=== PATIENT | female | born 1980 | race Caucasian/White ===

== ENCOUNTER 2018-04-08 21:37 | Emergency (ER) | payer MEDICARE, MEDICAID, SELFPAY ==
[2018-04-08 21:38] VITALS: PULSE 75; RESP 18; TEMP 37; O2SAT 98; BMI 24.1
[2018-04-08 21:45] VITALS: BP 133/83
[2018-04-08 21:46] VITALS: O2SAT 99
--- NOTE | 2018-04-08 22:02 | EKG12_ITS ---
Test Reason : SEIZURE Blood Pressure : / mmHG Vent. Rate : 064 BPM Atrial Rate : 064 BPM P-R Int : 140 ms QRS Dur : 084 ms QT Int : 434 ms P-R-T Axes : 058 044 030 degrees QTc Int : 447 ms Normal sinus rhythm Normal ECG Confirmed by DYLAN MEYERS MD ([id number]), news videotape editor CARLOS ODEN ([id number]) on 04/12/2018 1:32:57 PM Referred By: SUNIL Confirmed By:DYLAN MEYERS MD
--- NOTE | 2018-04-08 22:04 | ED.VISSUMM ---
- ER Visit Summary Date of Service: 04/08/18 Chief Complaint: Shortness of breath History of Present Illness: The patient is a 38 F with a history of reflux disease, anxiety, cerebral palsy. Patient believes she is having a mild panic attack. She reports shortness of breath and palpitations that started around 730 this evening. She denies any stressors that may have triggered a panic attack. She did take Ativan prior to transport by EMS. She states that she feels her heart is pounding hard and is racing. She feels short of breath. She denies cough or wheezing. She has not had recent URI symptoms. Physical Examination: Vital signs are unremarkable. Heart rate is 75, respiratory rate 18, pulse ox 98% on room air. Patient is lying in bed no acute distress. She speaking full sentences. Head neck examination is unremarkable. Heart is regular rate and rhythm. Lung sounds are clear. Abdomen is soft nontender. Lower extremity examination reveals no calf tenderness or edema. She has strong and equal distal pulses. Test Results: EKG is sinus at 64 with no sign of acute ischemia. Portable chest x-ray unremarkable per my read. CBC and chemistry studies normal. Troponin and d-dimer are both negative. Emergency Department Course and Treatment: Patient was given p.o. Vistaril. On repeat evaluation she is resting comfortably. Symptoms have improved. Patient be discharged home with family members and will continue Ativan at home as needed. Treatment Plan: [] Disposition: Discharge Impression: Anxiety This note was generated with [employer] dictation software. It may contain incorrect words, spelling, and punctuation that were not noted in review of the chart prior to signing ED Disposition - Plan for ED Patient: Chief Complaint: Shortness of Breath Referrals: Roxanne Howell MD [Primary Care Provider] -
--- NOTE | 2018-04-08 22:20 | RAD_ITS ---
STUDY: X-RAY CHEST REASON FOR EXAM: Female, 38 years old. PT STATES SHE IS HAVING TROUBLE BREATHING AND FEELS LIKE HER HEART IS RACING. PT HAS HX OF ANXIETY TECHNIQUE: Single AP portable view of the chest. COMPARISON: None. FINDINGS: The lungs are clear and expanded. There is no demonstrated pleural abnormality. Normal size heart. Normal mediastinum and jacqueline. Normal visualized pulmonary arteries. Normal visualized aortic arch and descending thoracic aorta. There is a mild dextroscoliosis of the thoracic spine. Normal visualized ribs, clavicles, and shoulders. There is no demonstrated abnormality of the visualized soft tissue structures of the upper abdomen. RAD/Chest 1 View (Portable) IMPRESSION: Normal x-ray examination of the chest. Electronically Signed: Matt Ward MD at 23:13 EDT Tel , Service support ,
[2018-04-08 22:21] LABS: Absolute Neutrophil Count 4.3 X10^3/uL (2.0-7.7); Basophil# 0.03 X10^3/uL; Basophil% 0.4 % (0-1); Eosinophil# 0.05 X10^3/uL; Eosinophils% 0.7 % (0-5); Hematocrit 38.1 % (37-47); Lymphocyte % 26.9 % (19-41); Mean Corp Hgb Conc 34.1 g/gl (32-36); Mean Corpuscular Hgb 31.2 pg (27.0-32.0); Mean Corpuscular Volume 91.4 fL (81-99); Mean Platelet Vol. 10.1 fl (6.2-12.0); Monocyte# 0.75 X10^3/uL; Monocyte% 10.6 % (0-10); Neutrophil # 4.33 X10^3/uL (2.7-7.7); Neutrophil % 61.4 % (47-70); POSITIVE COUNT NO; POSITIVE DIFFERENTIAL NO; POSITIVE MORPHOLOGY NO; Platelet Count 203 K/mm3 (150-450); RBC Distribution Width SD 39.2 fl (35.1-43.9); Red Blood Count 4.17 M/mm3 (4.2-5.4); White Blood Count 7.1 K/mm3 (4.4-11.0)
[2018-04-08 22:30] LABS: D-Dimer Quantitative (DVT/PE) < 0.27 FEU/ug/m (0.27-0.49)
[2018-04-08 22:44] LABS: Anion Gap 8 (5-15); BUN 12 mg/dL (7-18); Calcium,Total 8.5 mg/dL (8.5-10.1); Chloride 111 mmol/L (98-107); Creatinine, Serum 0.71 mg/dL (0.55-1.02); EST Glomerular Filtration Rate 99 mL/min (>60); Est Glom Filt Rate - Afr Amer 120 mL/min (>60); Estimated Creatinine Clearance 81.86 ml/min; Glucose 92 mg/dL (74-106); Potassium 3.5 mmol/L (3.5-5.1); Sodium Level 143 mmol/L (136-145)
[2018-04-08] MEDS: hydrOXYzine PAM 25 MG Capsule PO (22:45)
[2018-04-08] MEDS: 0.9% Normal Saline 1,000 ML 150 ML IV (22:45)
--- NOTE | 2018-04-08 23:07 | ED.DEP ---
ED Disposition - Plan for ED Patient: Disposition: Home or Assisted Living Chief Complaint: Shortness of Breath Instructions: ED Stress React Referrals: Roxanne Howell MD [Primary Care Provider] - As Needed
[2018-04-08 23:17] VITALS: BP 121/73; PULSE 61; RESP 16; O2SAT 97
== END 2018-04-08 23:33 | disposition home or self-care (01) ==
PROVIDERS: Emergency Provider Emergency Medicine; Family Provider Internal Medicine; PCP Internal Medicine
DX: F41.9 Anxiety disorder, unspecified (principal); K21.9 Gastro-esophageal reflux disease without esophagitis; G80.9 Cerebral palsy, unspecified; F32.9 Major depressive disorder, single episode, unspecified; Z79.899 Other long term (current) drug therapy
CPT/HCPCS: 71045; 80048; 84484; 85025; 85379; 93005; 96360; 99285; J7030; A4216

== ENCOUNTER 2018-05-22 18:37 | Inpatient (IN) | payer MEDICARE, MEDICAID, SELFPAY ==
[2018-05-22 18:37] VITALS: BP 136/71; PULSE 88; RESP 16; TEMP 36.3; O2SAT 99; BMI 24.5
--- NOTE | 2018-05-22 18:46 | CT_ITS ---
STUDY: CT ABDOMEN AND PELVIS WITH CONTRAST REASON FOR EXAM: Female, 38 years old. Right-sided abdominal pain x3 days RADIATION DOSAGE (If Supplied By Facility): CTDIvol = ( 8.80 ) mGy, DLP = ( 339.16 ) mGycm TECHNIQUE: Transaxial images were obtained from the dome of the diaphragm to the symphysis pubis with oral contrast. 100ML ml of Isovue 300 contrast was administered. Sagittal and coronal images were reconstructed. Individualized dose optimization techniques were used for this CT. COMPARISON: 05/29/2017 FINDINGS: The visualized lung bases are unremarkable. The visualized portions of the heart are within normal limits. Normal liver. There are surgical clips in the gallbladder fossa consistent with a prior cholecystectomy. Normal spleen. Normal pancreas. Stable dilated common bile duct. Normal bilateral adrenal glands. Normal right kidney. Normal left kidney. Normal visualized stomach. Normal small intestine. Mildly prominent fecal retention in the rectosigmoid colon. Appendix is not clearly seen. Trace amount of right pericolic gutter free fluid. Acute appendicitis cannot fully be excluded. Normal abdominal aorta. Normal inferior vena cava. Normal retroperitoneum. Normal urinary bladder. There is absence of the uterus consistent with a prior hysterectomy. Normal abdominal wall. There are diffuse degenerative changes of the visualized lumbar spine. CT/Abdomen/Pelvis WITH Contrast IMPRESSION: 1. Nonvisualized appendix. There is a trace amount of free fluid in the right paracolic gutter. Acute appendicitis is not fully excluded 2. No evidence of small bowel obstruction. Some fecal retention the rectosigmoid colon 3. Status post cholecystectomy with mildly dilated common bile duct, stable Electronically Signed: Tin Mccloud DO at 21:04 EDT Tel , Service support ,
--- NOTE | 2018-05-22 18:47 | ED.VISSUMM ---
- ER Visit Summary Date of Service: 05/22/18 Chief Complaint: Abdominal pain History of Present Illness: The patient is a 38 F presents to the emergency department with right lower quadrant abdominal pain. Patient states over the past 2-3 days, she has had worsening pain into her right lower quadrant. She denies any nausea or vomiting. She states that she has felt like she has had a fever and has had some chills. She states the pain is worsened today. She does have history of cerebral palsy. She has also had prior cholecystectomy and hysterectomy. She denies any urinary symptoms. She has had no diarrhea or constipation. She denies any recent change in medications. Physical Examination: Exam is relatively unremarkable. Patient does have some slowed speech consistent with CP. She has some contractures of her right upper extremity. Heart is regular rate and rhythm. Lungs are clear. Abdomen soft, tender in the right lower quadrant with some voluntary guarding. No hernia or palpable mass. Back nontender. Test Results: [] Emergency Department Course and Treatment: Clinically, the patient symptoms were concerning for acute appendicitis. She had voluntary guarding with palpation the right lower quadrant. IV was established. The patient did require multiple doses of analgesics for pain control. Screening labs are unremarkable. Urine shows no infection. CT shows some fluid in the right paracolic gutter, but the appendix is not visualized. Given her pain and symptoms, I did discuss the patient with Dr. Maravilla. He did come and evaluate the patient. The patient will undergo repeat CT to see if the contrast has reached the appendix. She will be admitted to surgical service for further evaluation of right lower quadrant pain. Treatment Plan: [] Disposition: Admission Impression: 1. Right lower quadrant pain This note was generated with [employer] dictation software. It may contain incorrect words, spelling, and punctuation that were not noted in review of the chart prior to signing ED Disposition - Plan for ED Patient: Chief Complaint: Abd Pain Referrals: Roxanne Howell MD [Primary Care Provider] -
[2018-05-22] MEDS: 0.9% Normal Saline 1,000 ML 1000 ML IV (18:55)
[2018-05-22] MEDS: Ondansetron 4 MG/2 ML Vial IV (18:55)
[2018-05-22] MEDS: Morphine 4 MG/ML Syringe IV ×2 (18:55→19:34)
[2018-05-22 19:00] LABS: Absolute Lymphocyte Count 1.62 X10^3/ul (0.83-4.51); Absolute Neutrophil Count 3.9 X10^3/uL (2.0-7.7); Basophil# 0.03 X10^3/uL; Basophil% 0.5 % (0-1); Eosinophil# 0.07 X10^3/uL; Eosinophils% 1.1 % (0-5); Hematocrit 43.1 % (37-47); Hemoglobin 14.2 g/dl (12.0-15.0); Lymphocyte # 1.62 X10^3/ul (4.0); Lymphocyte % 25.5 % (19-41); Mean Corp Hgb Conc 32.9 g/gl (32-36); Mean Corpuscular Hgb 30.3 pg (27.0-32.0); Mean Corpuscular Volume 92.1 fL (81-99); Mean Platelet Vol. 9.3 fl (6.2-12.0); Neutrophil # 3.93 X10^3/uL (2.7-7.7); Neutrophil % 61.9 % (47-70); Platelet Count 212 K/mm3 (150-450); RBC Distribution Width CV 11.9 % (11.6-14.6); RBC Distribution Width SD 40.4 fl (35.1-43.9); Red Blood Count 4.68 M/mm3 (4.2-5.4); White Blood Count 6.4 K/mm3 (4.4-11.0)
[2018-05-22 19:04] LABS: POSITIVE COUNT NO; POSITIVE DIFFERENTIAL NO; POSITIVE MORPHOLOGY NO
[2018-05-22 19:22] LABS: ALB/GLOB Ratio 1.4 RATIO (0.9-2.4); AST(SGOT) 10 U/L (15-37); Alanine Aminotransfer ALT/SGPT 15 U/L (13-56); Albumin, Serum 4.3 g/dL (3.2-5.0); Alkaline Phosphatase 73 U/L (45-117); Anion Gap 7 (5-15); BUN 7 mg/dL (7-18); BUN/Creat Ratio 8.9 RATIO (10-20); Chloride 106 mmol/L (98-107); Creatinine, Serum 0.79 mg/dL (0.55-1.02); EST Glomerular Filtration Rate 87 mL/min (>60); Est Glom Filt Rate - Afr Amer 106 mL/min (>60); Estimated Creatinine Clearance 73.57 ml/min; Globulin 3.1 g/dL (2.2-4.2); Glucose 83 mg/dL (74-106); Lipase 73 U/L (73-393); Potassium 3.9 mmol/L (3.5-5.1); Protein, Total 7.4 g/dL (6.4-8.2); Sodium Level 138 mmol/L (136-145)
[2018-05-22 19:37] LABS: Bacteria 0 SEEN /hpf (None Seen); Mucous, Urine 0 SEEN /hpf (<or=2+); Red Blood Cells-Urine 0 SEEN /hpf (0-5); White Blood Cells 0 SEEN /hpf (0-5)
[2018-05-22] MEDS: Dicyclomine 20 MG/2 ML Vial IM (20:02)
[2018-05-22 20:07] VITALS: BP 102/59; PULSE 77; RESP 18; O2SAT 97
[2018-05-22 20:13] LABS: Color, Urine Yellow (Yellow); Glucose, Dipstick Normal (Normal); Ketone-Dipstick Negative (Negative); Leukocyte Esterase-Dipstick Negative /ul (Negative); Nitrite-Dipstick Negative (Negative); Occult Blood-Urine Negative /ul (Negative); Protein-Dipstick Negative (Negative); Urine Bilirubin Dipstick Negative (Negative); Urine Clarity Clear (Clear); Urine Urobilinogen Normal (Normal)
[2018-05-22 20:15] LABS: Internal QC Validated? YES +Cl - CLEAR BKGD; Pregnancy, Urine Negative Negative
[2018-05-22 20:18] LABS: Squamous Epithelial Cells - UA 0-5 SEEN /hpf (5-10)
[2018-05-22] MEDS: proMETHazine 25 MG/ML Syringe 12.5 MG IV (20:18)
[2018-05-22] MEDS: HYDROmorphone 1 MG/ML Syringe IV (20:58)
[2018-05-22] MEDS: HYDROmorphone 0.5 MG/0.5 ML SYRINGE IV (21:38)
[2018-05-22 22:08] VITALS: BP 149/99; PULSE 114; RESP 18; TEMP 36.8; O2SAT 96
--- NOTE | 2018-05-22 22:14 | CT_ITS ---
STUDY: CT PELVIS WITHOUT CONTRAST REASON FOR EXAM: Female, 38 years old. Abdominal pain. RADIATION DOSAGE (If Supplied By Facility): CTDIvol = ( 7.05 ) mGy, DLP = ( 165.48 ) mGycm TECHNIQUE: Transaxial imaging of the pelvis was performed with oral contrast, and without intravenous administration of contrast material. Individualized dose optimization techniques were used for this CT. COMPARISON: CT of the abdomen from earlier today at 8:32 PM. Also compared to previous CT scans as far back as 07/17/2014. FINDINGS: By reviewing all previous CT scans including 2013, it is possible to define the appendix which is retrocecal and seen on axial image 23, coronal image 63, and coronal images 42-45 on the study of earlier today. It is normal in size and shape with no specific evidence for appendicitis. No secondary evidence for inflammation. Normal urinary bladder. Grossly normal visualized small intestine. Grossly normal visualized colon. There is no pelvic fluid. There is no pelvic mass lesion or lymphadenopathy. There is absence of the uterus consistent with a prior hysterectomy. Normal visualized pelvic arteries. Normal abdominal wall. Normal osseous structures. CT/Limited or Localized F/U CT IMPRESSION: No definite abnormality. No evidence for appendicitis. Electronically Signed: Yasmany Davies MD at 23:29 EDT , Service support ,
--- NOTE | 2018-05-22 22:29 | HP.PCM_ITS ---
History of Present Illness Date of Admission: 05/22/18 The patient is a 38 year old F with a 2 day history of RLQ pain. She denies actual fever, but feels febrile to herself. She denies recent viral symptoms. She had a prior robotic hysterectomy with bilateral salpingectomy. Both ovaries are still present. I performed laparoscopic cholecystectomy in 2016. She presented to the [facility] ER. CBC was unremarkable with no left shift. The patient vomited part of her oral contrast. CT scan of the abdomen and pelvis failed to demonstrate the appendix, but contrast did not reach the distal small bowel. My review seems to demonstrate a right ovarian cyst. I agree I do not visualize the appendix. The patient has a history of cerebral palsy. 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 I do not see inflammation on the current scan in a similar area. Past Medical History Past Medical History (Chronic Problems): Chronic Problems Depression (Chronic) GERD (gastroesophageal reflux disease) (Chronic) Cerebral palsy (Chronic) Allergies Coconut Allergy (Verified 04/08/18 21:41) Unknown coconut oil Allergy (Verified 04/08/18 21:41) Unknown cyclobenzaprine HCl [From Flexeril] Allergy (Verified 04/08/18 21:41) Unknown latex Allergy (Verified 04/08/18 21:41) Unknown Home Medications: Ambulatory Orders Medication Instructions Recorded Fluoxetine [Prozac] 60 mg PO DAILY 01/07/14 Montelukast [Singulair] 10 mg PO QHS 01/07/14 Omeprazole [Prilosec] 40 mg PO DAILY 01/07/14 Loratadine [Claritin] 10 mg PO DAILY 05/23/15 Lorazepam [Ativan] 0.5 mg PO BID PRN 06/15/16 Oxybutynin Chloride [Ditropan Xl] 10 mg PO DAILY 04/08/18 Surgical History: cholecystectomy, hysterectomy, - - Tubal ligation. Psychiatric History: Depression CLINICAL STAFF ANESTHESIOLOGIST History: No pertinent CLINICAL STAFF ANESTHESIOLOGIST history Smoking Status: Never smoker - *Family History Maternal History Items: Diabetes Paternal History Items: Heart Disease Review of Systems Constitutional: Reports: Anorexia HEENT: Denies: Head Aches, Sinus Congestion, Sinus Drainage Cardiovascular: Denies: Chest Pain, Palpitations Respiratory: Denies: Cough, Shortness of breath at rest, Sputum production Gastrointestinal: Reports: Abdominal Pain, Nausea, Vomiting Genitourinary: Denies: Dysuria Musculoskeletal: Denies: Joint Pain, Joint Tenderness Skin: Denies: Rash, Wounds Neurological: Denies: Numbness, Tingling, Focal weakness Psychiatric: Denies: Anxiety, Depression, Homicidal Ideations, Suicidal Ideations Hematologic/ Lymphatic: Denies: Easy Bruising, Easy Bleeding VTE Information - Inpt Only VTE Present on Admission: No VTE Mechan Device Prophylaxis: SCD's - Physical Exam General: Alert, Oriented x3, Cooperative Lungs: Clear to auscultation, Normal air movement Cardiovascular: Regular rate, No murmurs Abdomen: Bowel Sounds Present, Soft, Tender - Right side of abdomen, including pelvic area Vital Signs Temp Pulse Resp BP Pulse Ox 98.3 F 114 H 18 149/99 H 96 05/22/18 22:08 05/22/18 22:08 05/22/18 22:08 05/22/18 22:08 05/22/18 22:08 Oxygen Delivery Method Room Air Weight: 58.967 kg Body Mass Index (BMI) 24.5 Laboratory Tests Past 24 Hrs 05/22/18 05/22/18 05/22/18 18:53 18:53 19:30 WBC 6.4 RBC 4.68 Hgb 14.2 Hct 43.1 MCV 92.1 MCH 30.3 MCHC 32.9 RDW 11.9 RDW Differential 40.4 Plt Count 212 MPV 9.3 Immature Gran % (Auto) 0.000 Neut % (Auto) 61.9 Lymph % (Auto) 25.5 Scott % (Auto) 11.0 H Eos % (Auto) 1.1 Baso % (Auto) 0.5 Absolute Neuts (auto) 3.9 Absolute Lymphs (auto) 1.62 Total Counted Not Reportable Sodium 138 Potassium 3.9 Chloride 106 Carbon Dioxide 25.0 Anion Gap 7 BUN 7 Creatinine 0.79 Estim Creat Clear Calc 73.57 Est GFR (MDRD) Af Amer 106 Est GFR (MDRD) Non-Af 87 BUN/Creatinine Ratio 8.9 L Glucose 83 Calcium 9.0 Total Bilirubin 0.90 AST 10 L ALT 15 Alkaline Phosphatase 73 Total Protein 7.4 Albumin 4.3 Globulin 3.1 Albumin/Globulin Ratio 1.4 Lipase 73 Urine Color Urine Clarity Urine pH Ur Specific [place] Urine Protein Urine Glucose (UA) Urine Ketones Urine Occult Blood Urine Nitrite Urine Bilirubin Urine Urobilinogen Ur Leukocyte Esterase Urine RBC Urine WBC Ur Squamous Epith Cells Urine Bacteria Urine Mucus Urine Test Negative 05/22/18 19:30 WBC RBC Hgb Hct MCV MCH MCHC RDW RDW Differential Plt Count MPV Immature Gran % (Auto) Neut % (Auto) Lymph % (Auto) Scott % (Auto) Eos % (Auto) Baso % (Auto) Absolute Neuts (auto) Absolute Lymphs (auto) Total Counted Sodium Potassium Chloride Carbon Dioxide Anion Gap BUN Creatinine Estim Creat Clear Calc Est GFR (MDRD) Af Amer Est GFR (MDRD) Non-Af BUN/Creatinine Ratio Glucose Calcium Total Bilirubin AST ALT Alkaline Phosphatase Total Protein Albumin Globulin Albumin/Globulin Ratio Lipase Urine Color Yellow Urine Clarity Clear Urine pH 7.0 Ur Specific [place] 1.010 Urine Protein Negative Urine Glucose (UA) Normal Urine Ketones Negative Urine Occult Blood Negative Urine Nitrite Negative Urine Bilirubin Negative Urine Urobilinogen Normal Ur Leukocyte Esterase Negative Urine RBC 0 SEEN Urine WBC 0 SEEN Ur Squamous Epith Cells 0-5 SEEN Urine Bacteria 0 SEEN Urine Mucus 0 SEEN Urine Test Assessment/Plan All Active Problems Ileus, unspecified (Acute) Right sided abdominal pain, normal WBC count, appendicitis versus ovarian cyst , versus other I plan to repeat the CT scan limited through the pelvis with further delay to assess for better visualization of the appendix. If the appendix fills, that rules out appendicitis. I was able to see what I feel is likely a right ovary on CT scan. I would plan for pelvic ultrasound if delay CT scan does not prove appendicitis. Otherwise, I will plan to admit for pain control and to reassess exam in the morning.
[2018-05-22 23:52] VITALS: BMI 21.5
[2018-05-23] VITALS (10 sets, daily range): BP systolic 115–131; BP diastolic 68–86; PULSE 72–109; RESP 14–20; TEMP 36.4–37.2; O2SAT 94–97; BMI 21.5
[2018-05-23] MEDS: Lactated Ringers 1,000 ML 100 ML IV ×3 (00:41→23:13)
[2018-05-23] MEDS: Ondansetron 4 MG/2 ML Vial IV (00:42)
[2018-05-23] MEDS: 0.9% NaCl Peripheral Flush Adult/Peds IV ×2 (00:42→06:09)
[2018-05-23] MEDS: HYDROmorphone 0.5 MG/0.5 ML SYRINGE IV (00:42)
[2018-05-23] MEDS: HYDROmorphone 1 MG/ML Syringe IV ×3 (06:09→23:14)
[2018-05-23 06:11] LABS: Absolute Lymphocyte Count 1.28 X10^3/ul (0.83-4.51); Absolute Neutrophil Count 3.8 X10^3/uL (2.0-7.7); Basophil# 0.01 X10^3/uL; Basophil% 0.2 % (0-1); Eosinophil# 0.02 X10^3/uL; Eosinophils% 0.3 % (0-5); Hematocrit 37.9 % (37-47); Hemoglobin 12.5 g/dl (12.0-15.0); Lymphocyte # 1.28 X10^3/ul (4.0); Lymphocyte % 21.6 % (19-41); Mean Corpuscular Hgb 30.6 pg (27.0-32.0); Mean Corpuscular Volume 92.9 fL (81-99); Mean Platelet Vol. 9.7 fl (6.2-12.0); Monocyte# 0.79 X10^3/uL; Monocyte% 13.3 % (0-10); Neutrophil # 3.83 X10^3/uL (2.7-7.7); Neutrophil % 64.6 % (47-70); Platelet Count 180 K/mm3 (150-450); RBC Distribution Width SD 40.5 fl (35.1-43.9); Red Blood Count 4.08 M/mm3 (4.2-5.4); White Blood Count 5.9 K/mm3 (4.4-11.0)
[2018-05-23 06:26] LABS: POSITIVE COUNT NO; POSITIVE DIFFERENTIAL NO; POSITIVE MORPHOLOGY NO
[2018-05-23 06:27] LABS: Anion Gap 10 (5-15); BUN 7 mg/dL (7-18); BUN/Creat Ratio 10.8 RATIO (10-20); Calcium,Total 8.2 mg/dL (8.5-10.1); Chloride 108 mmol/L (98-107); Creatinine, Serum 0.65 mg/dL (0.55-1.02); EST Glomerular Filtration Rate 109 mL/min (>60); Est Glom Filt Rate - Afr Amer 131 mL/min (>60); Estimated Creatinine Clearance 89.42 ml/min; Glucose 79 mg/dL (74-106); Potassium 3.8 mmol/L (3.5-5.1); Sodium Level 142 mmol/L (136-145)
--- NOTE | 2018-05-23 06:48 | PN.SURG_ITS ---
Subjective: still pain - Physical Exam General: Alert, Oriented x3, Cooperative Lungs: Clear to auscultation, Normal air movement Cardiovascular: Regular rate, No murmurs Abdomen: Bowel Sounds Present, Soft, Tender - RLQ Vital Signs Temp Pulse Resp BP Pulse Ox 98.3 F 72 16 131/74 H 96 05/23/18 06:11 05/23/18 06:11 05/23/18 06:11 05/23/18 06:11 05/23/18 06:11 Oxygen Delivery Method Room Air Weight: 51.7 kg Body Mass Index (BMI) 21.5 Intake and Output for Last 24 Hours 05/21/18 05/22/18 05/23/18 23:59 23:59 23:59 Intake Total 527 / 527 Balance 527 / 527 Laboratory Tests Past 24 Hrs 05/23/18 05/23/18 05:34 05:34 WBC 5.9 RBC 4.08 L Hgb 12.5 Hct 37.9 MCV 92.9 MCH 30.6 MCHC 33.0 RDW 12.0 RDW Differential 40.5 Plt Count 180 MPV 9.7 Immature Gran % (Auto) 0.000 Neut % (Auto) 64.6 Lymph % (Auto) 21.6 [place] % (Auto) 13.3 H Eos % (Auto) 0.3 Baso % (Auto) 0.2 Absolute Neuts (auto) 3.8 Absolute Lymphs (auto) 1.28 Total Counted Not Reportable Sodium 142 Potassium 3.8 Chloride 108 H Carbon Dioxide 24.0 Anion Gap 10 BUN 7 Creatinine 0.65 Estim Creat Clear Calc 89.42 Est GFR (MDRD) Af Amer 131 Est GFR (MDRD) Non-Af 109 BUN/Creatinine Ratio 10.8 Glucose 79 Calcium 8.2 L Medical Necessity - Tobacco Use Smoking Status: Never smoker Assessment/Plan All Active Problems Ileus, unspecified (Acute) Right sided abdominal pain, normal WBC count, appendicitis versus ovarian cyst , versus other Repeat the CT scan limited through the pelvis was interpreted as better visualization of the appendix which was felt to be retrocecal and normal. I however thought the appendix was normal but in the pelvis.... I was able to see what I feel is likely a right ovary on CT scan. I plan for pelvic ultrasound this morning. If the studies are still inconclusive, I will plan for laparoscopic exploration/ laparoscopic appendectomy.
--- NOTE | 2018-05-23 07:30 | APP_PTH ---
PATIENT: REGI HERNANDEZ LOC: [facility]3 U#:[id number] AGE/SX: 38/F ROOM: MS311 RE05/23/[address]: Dr. Surendra Diego MD : [id number] BED: 1 DIS: 05/24/2018 SPEC #: [id number] RECD: 05/24/18 07:16 STATUS: [place] REQ #: [id number] DANIEL: 05/23/18 07:[address]: Surendra Diego DEPT: SURGICAL PATHOLOGY RECD BY: Esteban Corrales ENTERED: 05/24/18 10:59 SP TYPE: APPENDIX OTHR DR: Dr. Roxanne Howell MD Tissues: Appendix, NOS Procedures: Surgery Specimen Level III HEADER OPERATION: Laparoscopic, appendectomy PRE-OP DIAGNOSIS: Right lower quadrant abdominal pain TISSUE SUBMITTED: Appendix MICROSCOPIC DIAGNOSIS Appendix: Appendix, no pathologic diagnosis. See comment. SJ:jules 05/25/18 COMMENT The entire specimen is examined. There is no evidence of acute inflammation in the lumen and appendicular wall. MICROSCOPIC DESCRIPTION Slides are reviewed. GROSS DESCRIPTION Received is one container labeled with the patient's name and designated appendix. The specimen consists of appendix measuring 5 cm in length and up to 1 cm in average diameter. The serosa is congested and hemorrhagic. No obvious perforation is identified. The lumen does not contain fecalith. Correctional Captain sections are submitted in one cassette. ANGIE:jules 05/23/18 TC:4 CPT: 68715 The rest of the specimen is submitted in two more cassettes, #2 and 3. SJ:jules 05/25/18
--- NOTE | 2018-05-23 08:00 | US_ITS ---
STUDY: ULTRASOUND OF THE FEMALE PELVIS - COMPLETE REASON FOR EXAM: Female, 38 years old. Right lower quadrant pain. LMP: Prior hysterectomy. TECHNIQUE: Transabdominal. The patient refused the transvaginal examination. TECHNICAL QUALITY: Adequate. COMPARISON: Comparison is made with prior CT scan of the abdomen and pelvis dated May 22, 2018. FINDINGS: The patient is status post hysterectomy. The right ovary is non-visualized. The left ovary is non-visualized. There is no fluid in the cul-de-sac. The pre void volume of the bladder was 104 ml. Polycystic ovary disease: No. US/Pelvic (Non ) IMPRESSION: The patient is status post hysterectomy. The ovaries were not visualized. Electronically Signed: Andrei Nielson MD at 12:34 EDT Tel [phone], Service support ,
--- NOTE | 2018-05-23 14:30 | CHAPLAIN ---
Type of Pastoral Visit _x__ Initial Visit ___ Follow-up Visit ___ On-call Visit ___ General Patient Visit ___ Spiritual Assessment ___ Family Conference ___ Bereavement ___ Rapid Response ___ Code Blue ___ Other (describe below) Pastoral Care Referral From _x__ Patient ___ Family ___ Nurse ___ Physician ___ Maintenance Fitter ___ Branch Administrator ___ Other (describe below) Sacrament/Intervention _x__ Active listening ___ Anointing ___ Faith ___ Bereavement ___ Communion ___ [place] exploration ___ ___ Life review _x__ Prayer ___ Reconciliation ___ Sacrament of Sick _x__ Supportive presence ___ Wedding ___ Other (describe below) Pastoral Comments
--- NOTE | 2018-05-23 15:09 | CASEMGMT ---
SEE FELICIA SAUNDERS LINK. D/C PLAN: UNDETERMINED. Treatment plan unknown at this time. Introduced role of CM to patient. Pt guarded with disclosing current ADL needs. When asked pt if she currently needs assistance at home, pt stated, I am working on something and I don't want to disclose it. Pt also states she has had [employer] [employer] services and that she doesn't want to use their services in the future. Pt stated, that's why I am working on something on my own. Pt denies needs at this time. Declines assistance from CM. Cele BELLN FELICIA SAUNDERS
[2018-05-23] MEDS: Bupivacaine Mpf 0.5% 30 ML VIAL (17:09)
--- NOTE | 2018-05-23 17:19 | PCM.OPRPT ---
Report of Operation Date of Procedure: 05/23/18 Pre-Operative Diagnosis: RLQ pain Post-Operative Diagnosis: RLQ pain, right ovarian cyst, normal retrocecal appendix, no meckels or other abnormalities Surgery/Procedure Performed:: diagnostic laparoscopic, laparoscopic appendectomy credit product analyst: None Type of Anesthesia:: General Anesthesiologist: Angel Olsen - [id number] Specimen's removed: appendix Estimated Blood Loss (mL): 10 Fluids Replaced: 800 Description of Procedure: The patient was brought to the operating suite. Sign in was performed verifying patient, site, procedure, position, and DVT prophylaxis with SCDs. Patient received 4.5 g Zosyn in the event the patient did in fact have acute appendicitis. Following induction of general anesthetic. The patients abdomen was prepped and draped in the usual fashion. Timeout was performed verifying patient, site, position. Local anesthetic was injected below the umbilicus. Incision made and dissection carried down to the umbilical root fascia. 2 stay sutures were placed. Incision made in the fascia, the peritoneum entered under direct visualization. A 10 mm Gutierrez trocar was inserted and secured with the stay sutures. Pneumoperitoneum to 15 mmHg was insufflated. 2 5mm ports were placed in the standard position. Visual inspection revealed retrocecal appendix that appeared normal. Visual inspection. The abdominal cavity demonstrated normal appearing liver, normal. Visualized small bowel, normal visualized colon. The small bowel was run. No Meckel's diverticulum was seen. The patient was status post hysterectomy. The patient had a normal-appearing left ovary. The right ovary demonstrated a hemorrhagic follicle/cyst. There was a degree of blood-tinged fluid in the pelvis . the retrocecal appendix was mobilized using the Harmonic scalpel.A window was made between the base the mesoappendix and the base of the appendix transected with the intestinal load Endo ROLDAN stapler at the base of the cecum. The mesoappendix was transected with a harmonic scalpel. The appendix was placed in an Endobag and removed through the umbilical port site. An 0 PDS [id number] suture was placed around the umbilical port site defect. Pneumoperitoneum was reestablished. The appendiceal area was checked for hemostasis. 5mm ports were removed under direct visualization with no signs of bleeding. Pneumoperitoneum was released. The Gutierrez trocar was removed. The umbilical fascial suture was secured area did skin was closed with interrupted 4-0 Monocryl subcuticular sutures. Steri-Strips and bandages were applied. The patient was brought to recovery room in stable condition.
--- NOTE | 2018-05-23 17:25 | OP.PCM_ITS ---
Report of Operation Date of Procedure: 05/23/18 Pre-Operative Diagnosis: RLQ pain Post-Operative Diagnosis: RLQ pain, right ovarian cyst, normal retrocecal appendix, no meckels or other abnormalities Surgery/Procedure Performed:: diagnostic laparoscopic, laparoscopic appendectomy device test engineer: None Type of Anesthesia:: General Anesthesiologist: Angel Olsen - [id number] Specimen's removed: appendix Estimated Blood Loss (mL): 10 Fluids Replaced: 800 Description of Procedure: The patient was brought to the operating suite. Sign in was performed verifying patient, site, procedure, position, and DVT prophylaxis with SCDs. Patient received 4.5 g Zosyn in the event the patient did in fact have acute appendicitis. Following induction of general anesthetic. The patient?s abdomen was prepped and draped in the usual fashion. Timeout was performed verifying patient, site , position. Local anesthetic was injected below the umbilicus. Incision made and dissection carried down to the umbilical root fascia. 2 stay sutures were placed. Incision made in the fascia, the peritoneum entered under direct visualization. A 10 mm Gutierrez trocar was inserted and secured with the stay sutures. Pneumoperitoneum to 15 mmHg was insufflated. 2 5mm ports were placed in the standard position. Visual inspection revealed retrocecal appendix that appeared normal. Visual inspection. The abdominal cavity demonstrated normal appearing liver, normal. Visualized small bowel, normal visualized colon. The small bowel was run. No Meckel's diverticulum was seen. The patient was status post hysterectomy. The patient had a normal-appearing left ovary. The right ovary demonstrated a hemorrhagic follicle/cyst. There was a degree of blood-tinged fluid in the pelvis . the retrocecal appendix was mobilized using the Harmonic scalpel.A window was made between the base the mesoappendix and the base of the appendix transected with the intestinal load Endo ROLDAN stapler at the base of the cecum. The mesoappendix was transected with a harmonic scalpel. The appendix was placed in an Endobag and removed through the umbilical port site. An 0 PDS figure-of- eight suture was placed around the umbilical port site defect. Pneumoperitoneum was reestablished. The appendiceal area was checked for hemostasis. 5mm ports were removed under direct visualization with no signs of bleeding. Pneumoperitoneum was released. The Gutierrez trocar was removed. The umbilical fascial suture was secured area did skin was closed with interrupted 4-0 Monocryl subcuticular sutures. Steri-Strips and bandages were applied. The patient was brought to recovery room in stable condition.
[2018-05-24 02:07] VITALS: BP 116/71; PULSE 72; RESP 16; TEMP 37.1; O2SAT 95
[2018-05-24 08:00] VITALS: BP 117/67; PULSE 88; RESP 16; TEMP 36.6; O2SAT 95
--- NOTE | 2018-05-24 12:44 | PCM.DC.APPY ---
Discharge Diet: Light diet - advance as tolerated Discharge Activity: May Not Drive - for 3-5 days or while taking narcotic pain meds. May shower in (days): 1 Suture Line Care: Avoid Pulling/Pushing, Avoid Pinching/Bending Additional Dressing/Incision Instructions:: Keep dressing clean and dry. Change or remove dressing in 2 days. Leave steri strips for 1 week. May protect with a gauze bandaid. Medications to take at Discharge Fluoxetine [Prozac] 60 mg PO DAILY 01/07/14 Montelukast [Singulair] 10 mg PO QHS 01/07/14 Omeprazole [Prilosec] 40 mg PO DAILY 01/07/14 Loratadine [Claritin] 10 mg PO DAILY 05/23/15 Lorazepam [Ativan] 0.5 mg PO BID PRN 06/15/16 Oxybutynin Chloride [Ditropan Xl] 10 mg PO DAILY 04/08/18 Ensure Enlive 120 ml PO 4X/DAY liquid 05/24/18 Hydrocodone/Acetaminophen [Highland 5-325 Tablet] 1 ea PO 4X/DAY PRN PRN 7 Days #16 tab 05/24/18 Allergies/Adverse Reactions: Allergies Coconut Allergy (Verified 05/23/18 00:12) Anaphylaxis coconut oil Allergy (Verified 05/23/18 00:12) Anaphylaxis latex Allergy (Verified 05/23/18 00:12) Rash cyclobenzaprine HCl [From Flexeril] Adverse Reaction (Verified 05/23/18 00:12) gets mean The following prescriptions were given: Hydrocodone/Acetaminophen [Highland 5-325 Tablet] 1 ea PO 4X/DAY PRN PRN 7 Days #16 tab PRN Reason: Pain Primary Care Physician: Roxanne Howell MD [Primary Care Provider] - Please Follow Up With: Surendra Diego MD - [phone] When: Call to make a follow up appointment in 1 week.
[2018-05-24 13:05] VITALS: BP 119/67; PULSE 74; RESP 16; TEMP 37.2; O2SAT 96
--- NOTE | 2018-05-24 17:53 | PCM.DC.SUM ---
Discharge Date and Diagnosis Date of Admission: 05/22/18 Date of Discharge: 05/24/18 - Primary Discharge Diagnosis right lower quadrant pain - Secondary Discharge Diagnosis Chronic Problems Depression (Chronic) GERD (gastroesophageal reflux disease) (Chronic) Cerebral palsy (Chronic) Hospital Course and Treatment Operations: appendectomy Summary of Care Provided: The patient is a 38 year old F who presented with a 2 day history of right lower quadrant pain with a normal white blood cell count. CT scan was initially difficult to interpret, but delayed images was felt to representappendicitis. I suspected a hemorrhagic ovarian cyst, but pelvic ultrasound failed to demonstrate that abnormality. The patient was brought to the operative suite hospital day 1 for diagnostic laparoscopy. She was in fact found to have a right hemorrhagic ovarian cyst. Left ovary was unremarkable. The appendix appeared unremarkable. A laparoscopic appendectomy was performed. The patient asked the did well, noted improvement in her pain and was discharged home on postoperative day 1. Discharge Diet: Light diet - advance as tolerated Discharge Activity: May Not Drive - for 3-5 days or while taking narcotic pain meds. May shower in (days): 1 Suture Line Care: Avoid Pulling/Pushing, Avoid Pinching/Bending Additional Dressing/Incision Instructions:: Keep dressing clean and dry. Change or remove dressing in 2 days. Leave steri strips for 1 week. May protect with a gauze bandaid. Home Medications: Medications to take at Discharge Fluoxetine [Prozac] 60 mg PO DAILY 01/07/14 Montelukast [Singulair] 10 mg PO QHS 01/07/14 Omeprazole [Prilosec] 40 mg PO DAILY 01/07/14 Loratadine [Claritin] 10 mg PO DAILY 05/23/15 Lorazepam [Ativan] 0.5 mg PO BID PRN 06/15/16 Oxybutynin Chloride [Ditropan Xl] 10 mg PO DAILY 04/08/18 Ensure Enlive 120 ml PO 4X/DAY liquid 05/24/18 Hydrocodone/Acetaminophen [Olivia 5-325 Tablet] 1 ea PO 4X/DAY PRN PRN 7 Days #16 tab 05/24/18 Following Prescrptions Were Given to Patient: Hydrocodone/Acetaminophen [Olivia 5-325 Tablet] 1 ea PO 4X/DAY PRN PRN 7 Days #16 tab PRN Reason: Pain Primary Care Physician: Roxanne Howell MD [Primary Care Provider] - Please Follow Up With: Surendra Diego MD - [phone] When: Call to make a follow up appointment in 1 week. Medical Necessity - Tobacco Use Smoking Status: Never smoker Meaningful Use Info Meaningful Use Diagnoses (Choose all that apply): None applicable
== END 2018-05-24 13:58 | disposition home or self-care (01) | DRG 343 ==
LOC: ED 19:12 → MS3 23:29
PROVIDERS: Admitting Provider Surgery; Emergency Provider Emergency Medicine; Family Provider Internal Medicine; PCP Internal Medicine; Visit Provider Surgery
PROC: 0DTJ4ZZ Resection of Appendix, Percutaneous Endoscopic Approach (ICD-10-PCS; CPT 44970; principal; 2018-05-23 07:10)
DX: R10.31 Right lower quadrant pain (principal); Z90.710 Acquired absence of both cervix and uterus; G80.9 Cerebral palsy, unspecified; K21.9 Gastro-esophageal reflux disease without esophagitis; F32.9 Major depressive disorder, single episode, unspecified; N83.201 Unspecified ovarian cyst, right side
CPT/HCPCS: 36415; 74177; 76380; 76856; 80048; 80053; 81001; 81025; 83690; 85025; 88304; 97802; 99282; J7030; J7120; Q9967; A4216; J2405

== ENCOUNTER 2018-07-27 23:16 | Emergency (ER) | payer MEDICARE, MEDICAID, SELFPAY ==
[2018-07-27 23:18] VITALS: BP 134/85; PULSE 74; RESP 20; TEMP 36.8; O2SAT 97; BMI 21.8
--- NOTE | 2018-07-27 23:32 | ED.VISSUMM ---
- ER Visit Summary Date of Service: 07/27/18 Chief Complaint: [] Anxiety attack History of Present Illness: The patient is a 38 F she is having a grief reaction with anxiety attack just tonight when she found out her 15-year-old nephew in his sleep. She is feeling tearful sad and anxious. She is out of her Ativan. She is a history of chronic bipolar and anxiety. Requesting something to relax her. Physical Examination: [] Vital signs reviewed General: Well-nourished well-developed. Patient is tearful. Head: Normocephalic atraumatic Eyes: Pupils equal round and reactive to light extraocular movements intact ENT: TMs clear no hemotympanum no trauma Neck: Nontender full range of motion Cardiovascular: Regular rate rhythm no murmurs normal S1-S2 Respiratory: No distress clear to auscultation bilaterally chest nontender Abdomen: Soft nontender nondistended normal bowel sounds no masses Back: Nontender no CVA tenderness Extremities: Nontender active range of motion ?4 extremities no trauma Skin: Normal color no trauma Neuro alert oriented cranial nerves II through XII intact normal strength sensation reflexes Test Results: [] Emergency Department Course and Treatment: [] She given a shot of Ativan. She will be discharged with a short course of Ativan for her grief reaction and anxiety. Will follow-up as an outpatient Treatment Plan: [] Disposition: [] Impression: [] Anxiety with grief reaction This note was generated with [employer] dictation software. It may contain incorrect words, spelling, and punctuation that were not noted in review of the chart prior to signing ED Disposition - Plan for ED Patient: Chief Complaint: Anxiety Referrals: Roxanne Howell MD [Primary Care Provider] -
--- NOTE | 2018-07-27 23:33 | ED.DEP ---
ED Disposition - Plan for ED Patient: Disposition: Home or Assisted Living Chief Complaint: Anxiety Instructions: ED Stress React, ED Panic Attack Prescriptions: Lorazepam [Ativan] 1 mg PO TID PRN #6 tab PRN Reason: Anxiety/Agitation Referrals: Roxanne Howell MD [Primary Care Provider] -
[2018-07-27] MEDS: LORazepam 2 MG/ML Syringe 1 MG IM (23:43)
[2018-07-28 00:17] VITALS: BP 117/80; PULSE 76; RESP 18; O2SAT 98
--- NOTE | 2018-07-28 00:17 | ED.RN ---
THIS NURSE REVIEWED D/C INSTRUCTIONS WITH PT AND THE MANY VISITORS IN THE ROOM. BOYFRIEND VERBALIZED UNDERSTANDING OF INSTRUCTIONS. FRIENDS WENT TO GET PT W/C. PT DENIES FURTHER NEEDS OR QUESTIONS AT THIS TIME.
== END 2018-07-28 00:18 | disposition home or self-care (01) ==
LOC: ED 23:39
PROVIDERS: Emergency Provider Emergency Medicine; Family Provider Internal Medicine; PCP Internal Medicine
DX: F43.22 Adjustment disorder with anxiety (principal); F31.9 Bipolar disorder, unspecified; Z79.899 Other long term (current) drug therapy
CPT/HCPCS: 96372; 99284

== ENCOUNTER 2018-09-01 09:00 | Outpatient (RCR) | payer MEDICARE, MEDICAID, SELFPAY ==
--- NOTE | 2018-09-01 10:10 | BH.SGPN.GN ---
Behaviors/Verbalizations/Mental Status: []Client alert and oriented, dress casual, hygiene good. Eye contact good. Motor activity restless-client diagnosed with cerebral palsy. Speech baseline for client- client's cerebral palsy impacts client's speech, but client able to articulate thoughts fully. Affect full, mood euthymic, anxious. Thoughts linear, logical, no signs of hallucinations or delusions. Client Response/Progress/Benefit: []Client responded well to session, active participant. Client appeared to connect with the quote sharing, ?life is a gift not a burden if you let yourself think that way.? Client identified crisis as a situation that is long lasting and ?shakes you? like a viviana effect. Client reported anything could be a crisis depending on one?s current life stressors and sometimes people do not cope with healthy coping skills which could make crisis worse. Client stated everyone spencer and experiences crisis differently. Client selected a visual that represents client?s thoughts and emotions during crisis. Client shared in crisis she feels ?like I?m trapped in a jar,? is anxious, and feels helpless. Client stated her disability also contributes to client?s feelings of helpless in crisis sharing, ?I know what I want to do but I can?t do it.? Client appeared to benefit from gaining insight to what crisis is like for her. Client?s first day of IOP, to continue to prevent decompensation and increase mood stability.
--- NOTE | 2018-09-01 11:10 | BH.SGPN.GN ---
Behaviors/Verbalizations/Mental Status: []Client alert and oriented, dress casual, hygiene good. Eye contact good. Motor activity restless-client diagnosed with cerebral palsy. Speech baseline for client- client's cerebral palsy impacts client's speech, but client able to articulate thoughts fully. Affect full- smiling, mood euthymic, anxious. Thoughts linear, logical, no signs of hallucinations or delusions. Client Response/Progress/Benefit: []Client responded well to session, active participant. Client identified her biggest warning signs for crisis as unusual drop in functioning, decreased need for sleep, increased crying spells, and avoiding people. Client stated it is important for her to recognize her warning signs ?so I know what?s going on and can tell others what?s going on.? Client created a crisis survival kit that will remind client of healthy coping skills she can use to deescalate and manage her emotions. Client?s kit included a bubble gum to help client ?avoid saying stuff I don?t mean,? a stress ball, and a pipe coverer and insulator to ?fidget with.? Client appeared to benefit from creating something tangible to remind client of coping skills for crisis. Client?s first day in IOP. Client to continue IOP to promote mood stability and increase functioning.
--- NOTE | 2018-09-01 14:38 | BH.COMM ---
Communication Note - Communication with Client Communication Note: This therapist met with client, her fianc?, and her aide to complete IOP paperwork. Due to client's physical limitations, client verbally consented, and her aide signed with client's permission. Therapist also built rapport with client and introduced self as client's IOP individual therapist.
--- NOTE | 2018-09-02 09:45 | BH.NA ---
Physical Data - Vital Signs Pulse Rate: 68 Respiratory Rate: 14 Blood Pressure: 107/68 - Height/Weight Height: 1.55 m Current Medication Compliance - Medication Compliance Do you take your medication as prescribed?: Yes Do you need assistance with taking medication?: No Have you had side effects from medication?: No Nutritional History - Appetite Nutritional Instructions:: If client shows signs of a swallowing problem, weight change of 10 pounds or more in the last month, or is on a diabetic diet, the physician will review and request a dietitian consult, as appropriate. All unintentional weight loss will be referred to the physician for decision on need for dietitian consult. Describe your appetite:: Fair, Poor Have you noticed a change in your eating habits lately?: Yes - decreased recent w/o noted wt change Functional Assessment - Sleep Pattern Describe any problems with sleeping: Client notes difficulty falling asleep associated with rumination, and trouble staying asleep linked to temperature dysregulation (hot, then cold). - Activities Motor Activity:: Other - dyskenetic movements associated with cerebral palsy Sensory/Communication Assess - Hearing Problems Do you have any hearing problems?: Adequate - Communication Problems Do you have difficulty understanding what people are saying?: No Do you have trouble putting your thoughts into words or expressing what you want to say?: Yes - I get frustrated when trying to express my feelings Do people ever have trouble understanding what you say?: No What is your primary language?: Greenlandic Learning Assessment - Learning Barriers Learning Barriers:: Ready to learn - inability to write independently - personal aide able to assist Medical Problems/History - Neurological Conditions Neurological: Other (See comments) - cerebral palsy - Genitourinary Conditions Genitourinary: Other (See comments) - neurogenic bladder - Gastrointestinal Conditions Gastrointestinal: Dyspepsia - GERD - Female Reproductive Do you think you may be ?: No Do you have any history of breast disease?: No - Additional History Additional comments:: see FHx in Summary Surgical History - Surgical History Have you had any surgeries? If so, list type and date:: Yes - see SHx in Summary Substance Abuse - Substance Abuse Please describe substance abuse in the last 30 days:: Client denies tobacco, ETOH, and illicit substance use. Mental Status Summary - Mental Status Significant Findings/Observations on Appearance and Mood:: Client is A&Ox4, cooperative with interview. Casually groomed. Hyperactivity associated with dyskentic movements from cerebral palsy. Diana is wheelchair dependent for mobility. Fair eye contact. Speech is clear, loud, and slow. Mild depression and anxiety noted. Full and appropriate affect. Logical associations and normal process. No symptoms of delusions. Denies hallucinations and SI. Specifically denies HI, but does note thoughts of wanting to physically harm others at times. Impaired judgement. Good insight. Fair knowledge. Suicide Assessment - Suicidal Ideation Are you currently or have you been suicidal in the past?: No Suicidal Intentional Rating Scale (SIRS): No suicidal thoughts (past or present) Physician Notification: If Active suicidal thoughts/Will not contract for safety is checked, contact physician and document in the Physician Notification section below. Past Psychiatric History - Treatment Hx Describe (age, circumstance, etc) any past hospitalizations: N/A Fall Risk Assessment - Age Age: Less than 60 - Mental Status Mental Status: Willing & able to ask for assistance when needed - Physical Status Physical Status: Limb, dizziness, syncope, neurological - Impairments Impairments: None - Elimination Elimination: Elimination with assistance, OR diarrhea, OR incontinence - Gait or Balance Gait or Balance: Balance problems - Hx of Falls History of falls in the past 6 months: Has fallen - Medications/Substances Psychotropics:: Antidepressants, Mood stabilizers Medications/substances used within the past 24 hours or ordered to administer: 3 or more of the medications/substances listed above - Total Score Total Points:: 10 Physician Notification - Physician Notification Physician Notified: Maryann Lazo Method of Notification: Face to Face Comments: treatment planning recommendations/discussion RN Summary of Impressions - Impressions Recommendations: Include psychiatric and medical issues, treatment planning recommendations, and discharge planning needs. Impressions: Psychiatric Issues: bipolar d/o, PTSD, anxiety Impression: General Medical Conditions: cerebral palsy, neurogenic bladder w/ incontinence, GERD, seasonal rhinnitis/allergies Impressions: Treatment Planning Recommendations: Encouraged reduction in the amount of caffeine daily, as this may help with sleep, irritability, and anxiety. - Level of Care How do the client's current symptoms and functional deficits support need for this level of care?: Diana presents after several months of decompensated mood and mental health symptoms. She endorses drastic mood swings, decreased appetite, and sleep disturbance. Client also notes increased frequency of panic attacks, which are associated with shortness of breath and vision changes. She describes rumination and flashbacks of past trauma events. IOP will promote gains and prevent further decompensation.
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
--- NOTE | 2018-09-02 13:15 | BH.DR.ITP ---
Initial Treatment Plan - Patient Information Visit Information: ADMISSION DATE: EXPECTED LOS: 4-6 weeks Diagnoses:: Bipolar disorder F 31.9 - Problems/Symptoms Problem #1:: Mode instability Symptom:: Mood cycling, irritability, anger, depression, crying spells, biologic disruption of sleep and appetite Problem #2:: Anxiety Symptom:: Rumination
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
--- NOTE | 2018-09-02 14:12 | BH.MTP ---
Master Treatment Plan - Patient Information Program Physician:: Maryann Lazo Primary Therapist:: Le Roldan - Psychiatric Diagnoses Psychiatric Diagnoses:: Bipolar disorder; PTSD; Anxiety Diagnosis Code(s):: F 31.9 - Estimated LOS Estimated LOS (in weeks):: 6 Problem/Goal #1 - Problem/Goal #1 Stated Goal:: Client will increase mood stability, decrease depressive symptoms, and anger due to Bipolar Disorder through Intensive Outpatient Program. Description of Barriers: Client has cerebral palsy and is currently in a wheelchair which limits her use of certain coping skills to regulate emotions. Client reports her finance is a support, but he is new to learning about client's mental health and client shared he has a hard time helping client at times. Client shared her current living situation is a stressor as client has a hard time setting boundaries and is facing some issues with [place]. Client stated she has moments of dissociation or blackouts which client describes as feeling like my brain is static. Client reported she does not know what triggers these moments and reports not remembering what happens during these moments which could be a barrier. Client is not currently connected with outpatient mental health services. Functional Impact: Client is a 38-year old female who presents to the behavioral medicine [facility] for evaluation and treatment of mood symptoms and anxiety. Client reports history consistent with mood cycling including episodic symptoms of hypomania lasting 4-5 days. Client shared that one week ago she had symptoms consistent with cesar including feelings of anger irritability, euphoria, excessive productivity and decreased sleep. Client stated that these episodes are generally followed by depression which client is currently experiencing. Client currently endorses crying spells, feelings of sadness, anhedonia and decreased energy. Client shared she occasionally has anger with thoughts of hurting others, but she denies homicidal plan or intent. Client reported her anger increases when she feels invalidated or panicked. Client reported some auditory perceptual disturbances associated with grief. Client endorses moderate ruminative anxiety about everything. Client reports intrusive thoughts avoidance and hypervigilance consistent with PTSD. Client reported her mood symptoms, anxiety, and PTSD reduce her quality of life and shared they are very challenging for client to deal with. Goal Relevant Strengths/Supports: Client is kind, encouraging to peers, insightful, and has a good sense of humor. Client reports her animals are a huge mental health support as they provide client comfort and give client a sense of purpose. Client identified her fianc?, friend Chula, and her aide as positive supports and client would like to help them understand client's mental health more. Client reports motivation to improve her mental health and wants to learn about her diagnoses so she can more effectively manage her symptoms. Client also demonstrates resilience as she has been through numerous hardships in life yet she continues to make effort to improve her situation and learn. - Objectives Objective #1 Stated Objective: Client will increase self-awareness of her bipolar disorder by identifying 2-3 warning signs and triggers to both manic and depressive episodes and learn 2-3 strategies to cope with her symptoms to increase mood stability as evidenced by reduced DSM-5 cross-cutting scores for cesar and depression. Interventions: Through individual and group work, therapist will help client to identify triggers and warning signs for manic and depressive episodes. Therapist will provide psychoeducation on bipolar disorder and use CBT strategies to increase client?s awareness of how thoughts, feelings, and behaviors impact functioning. Therapist will encourage client to bring in her supports for sessions as client wants to increase self-awareness and teach her supports about bipolar and how to manage the symptoms. Therapist will teach client various coping strategies to increase mood stability. Discharge Criteria: Client will have met this treatment goal when her DSM-5 symptoms reflect a reduction for cesar and depression. Additionally, client will have accomplished this goal when she can identify at least 2 warning signs and at least 2 coping strategies to increase mood stability. Target Date: 10/13/18 Review Date: 10/02/18 Status: open Objective #2 Stated Objective: Client will learn and utilize 2-3 healthy coping strategies to manage depressive symptoms and anger. Interventions: Through group and individual sessions, therapist will help client identify triggers and warning signs of depression and anger including emotional, physical, and behavioral. Therapist will teach client various coping skills to manage her symptoms and give client handouts and tangible tools to use to regulate emotions. Therapist will help client create an anger kit that client can take with her in various settings. Discharge Criteria: Client will have met this goal when she can report learning and using at least 2 coping skills to manage depressive symptoms and anger. Target Date: 10/13/18 Review Date: 10/02/18 Status: open Problem/Goal #2 - Problem/Goal #2 Stated Goal:: Client will decrease frequency, duration, and intensity of anxiety and rumination so daily functioning is not impaired. Description of Barriers: Client has cerebral palsy and is currently in a wheelchair which limits her use of certain coping skills to regulate emotions. Client reports her finance is a support, but he is new to learning about client's mental health and client shared he has a hard time helping client at times. Client shared her current living situation is a stressor as client has a hard time setting boundaries and is facing some issues with [place]. Client stated she has moments of dissociation or blackouts which client describes as feeling like my brain is static. Client reported she does not know what triggers these moments and reports not remembering what happens during these moments which could be a barrier. Client is not currently connected with outpatient mental health services. Functional Impact: Client is a 38-year old female who presents to the behavioral medicine [facility] for evaluation and treatment of mood symptoms and anxiety. Client reports history consistent with mood cycling including episodic symptoms of hypomania lasting 4-5 days. Client shared that one week ago she had symptoms consistent with cesar including feelings of anger irritability, euphoria, excessive productivity and decreased sleep. Client stated that these episodes are generally followed by depression which client is currently experiencing. Client currently endorses crying spells, feelings of sadness, anhedonia and decreased energy. Client shared she occasionally has anger with thoughts of hurting others, but she denies homicidal plan or intent. Client reported her anger increases when she feels invalidated or panicked. Client reported some auditory perceptual disturbances associated with grief. Client endorses moderate ruminative anxiety about everything. Client reports intrusive thoughts avoidance and hypervigilance consistent with PTSD. Client reported her mood symptoms, anxiety, and PTSD reduce her quality of life and shared they are very challenging for client to deal with. Goal Relevant Strengths/Supports: Client is kind, encouraging to peers, insightful, and has a good sense of humor. Client reports her animals are a huge mental health support as they provide client comfort and give client a sense of purpose. Client identified her fianc?, friend Chula, and her aide as positive supports and client would like to help them understand client's mental health more. Client reports motivation to improve her mental health and wants to learn about her diagnoses so she can more effectively manage her symptoms. Client also demonstrates resilience as she has been through numerous hardships in life yet she continues to make effort to improve her situation and learn. - Objectives Objective #1 Stated Objective: Client will identify 2-3 cognitive distortions that lead to rumination and learn 2-3 ways to manage these thoughts to reduce anxiety as evidenced by a reduction of DSM-5 cross cutting symptom measure scores. Interventions: Therapist will educate client on the most common cognitive distortions and teach client the connection between thoughts, emotions, and feelings. Therapist will assist client in identifying, challenging, and replacing dysfunctional thoughts with positive, more realistic thoughts. Therapist will use CBT techniques to help client gain awareness of thinking errors and learn how to more effectively handle negative thoughts. Therapist will help client identify positive affirmations of self to replace negative thoughts. Discharge Criteria: Client will have accomplished this goal when can identify at least 2 cognitive distortions and at least 2 coping skills to manage negative thoughts. Client will also be able to report reduction of anxiety symptoms on the DSM-5 symptom measure. Target Date: 10/13/18 Review Date: 10/02/18 Status: open Objective #2 Stated Objective: Client will identify 2-3 anxiety and trauma triggers and 2 calming coping skills to use when feeling anxious. Interventions: Therapist will help client increase awareness of anxiety and trauma triggers and educate client on the ways anxiety impacts overall health. Therapist will teach client various calming strategies to promote emotional regulation and reduction of anxiety. Therapist will assist client in identifying stressors and teach client techniques to reduce, remove, or accept stressors to reduce anxiety. Therapist will discuss the importance of self-care, healthy relationships, and boundaries. Discharge Criteria: Client will have accomplished this goal when can report at least 2 triggers for anxiety and PTSD and state using 2 calming strategies to manage symptoms. Target Date: 10/13/18 Review Date: 10/02/18 Status: open
--- NOTE | 2018-09-05 10:11 | BH.MDN_ITS ---
Multi-Disciplinary Note - Note 45-min Individual Time Started:: 10:47 Date: 09/02/18 Purpose of session/treatment goals addressed:: The purpose of this session was to build rapport and gather information on client's current psychosocial stressors, symptoms, and treatment goals. Another goal was to practice mindfulness and identify supports. Eye Contact:: Fair Motor Activity:: Restless - Movements consistent with baseline movements of her cerebral palsy. Appearance:: Casual Speech:: Other - within normal limits for client. Client diagnosed with cerebral palsy which impacts her speech and motor activity. Mood:: Anxious, Irritable, Dysthymic Affect:: Constricted Thoughts:: Linear, Logical, No evidence of hallucinations/delusions noted Staff Interventions:: Therapist used active listening and open-ended questions to build rapport and gather information on client's current stressors, symptoms, and treatment goals. Therapist used strengths perspective to empower client on her decision to seek mental health help and learn more about her disorder. Therapist provided client a safe space to discuss past trauma and other psychosocial issues. Therapist practiced a mindfulness strategy called the five- senses with client. Client Response:: Client responded well to session, open to meeting with therapist and practicing skills. Client shared she is glad to be in IOP because client has been struggling with mental health for as long as I can remember. Client stated her mood cycling has been extremely difficult for her to manage and understand. Client reported one of her biggest goals is learning about bipolar, so she can explain it to her supports. Client endorses a history of bipolar disorder including mood cycling, depressive episodes, anger, and irritability. Client stated belief she was manic last week, and that her cesar can last up to five days at a time. Client also reported a history of multiple traumatic experiences and PTSD. Client reports auditory perceptual disturbances associated with grief but shared ?they are nice voices.? Client stated belief she dissociates which client refers to as feeling like static and blacking out. Client reported hearing voices at times Client and therapist discussed mindfulness and grounding as methods to manage PTSD and dissociation. Client was receptive to practicing the five-senses with therapist. Client reported she wants to learn coping skills to manage her symptoms. Client shared she currently uses her animals to regulate emotions. Client also identified her aide, boyfriend-Bill, and friend-Chula as mental health supports. Risks/Concerns:: Client denies active suicidal ideation, plan, and intent as of 09/02/18. Client reports when she gets in crisis mode she has thoughts of hurting others, but client states she would not act on those thoughts. Progress Toward Goals/Plan:: Client's second day in IOP so progress is limited. Client reported enjoying the program and learning about her bipolar disorder so client can explain it to her supports. Client seems to be benefiting from gaining awareness and connecting with peers. Client identified her IOP goals as learning coping skills to manage her symptoms, educating her supports about her diagnoses, and learning to set boundaries. Client to continue IOP to prevent decompensation and increase mood stability. Time Stopped:: 11:30
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
--- NOTE | 2018-09-06 10:20 | BH.SGPN.GN ---
Behaviors/Verbalizations/Mental Status: [] Pt eye contact good, casually dressed, motor activity appropriate, speech normal rate and tone, mood euthymic, congruent affect, thoughts linear and intact, no evidence of delusions or hallucinations. Narrative Note: []Pt listened attentively to others and contributed at times to discussion. Pt struggled with identifying her current stressors and need assistance from therapist. Pt did identify two stressors to be: letting other people control her house situation and difficult people in her life. Pt struggled with identifying any internal stressors. Pt seemed to benefit from increased awareness of how stress can impact mind and body. Also benefitted from identifying that her response to stress is usually anger outburst, which she stated does not help the situation.
--- NOTE | 2018-09-06 11:30 | BH.SGPN.GN ---
Behaviors/Verbalizations/Mental Status: [] Pt eye contact good, casually dressed, motor activity appropriate, speech normal rate and tone, mood euthymic, congruent affect, thoughts linear and intact, no evidence of delusions or hallucinations. Client Response/Progress/Benefit: []Pt responded positively to group AEB contributions to discussion and listened to others. Pt identified taking a break from the situation as a helpful strategy to manage stress. Pt identified her goal for the week is to focus on setting boundaries because she recognizes if she doesn't set boundaries she will continued to be stressed by others behaviors. Pt seemed to benefit from increasing repertoire of health strategies and skills to help with managing stress. Pt to continue IOP level of care to stabilize moods, increase use of healthy coping, and prevent decompensation. Narrative Note: []
--- NOTE | 2018-09-07 09:00 | BH.SGPN.GN ---
Behaviors/Verbalizations/Mental Status: [] Alert and oriented. Eye contact is fair. Motor activity is baseline (CP). Appearance is casual. Speech is baseline (CP). Mood is irritable and anxious. Affect is congruent. Thoughts are linear and logical. No psychosis noted. Client Response/Progress/Benefit: [] Pt was an active participant in group discussion. Emotion for today is anger and confusion. Shared with the group frustrations related housing situation. She talked at [facility] about how information from others is effecting her mood. She vented for several minutes and afterwards stated I needed to get all this out. Shared how she often gets conflicting information from others and has nowhere to vent except with her fiance. Added appropriate feedback and support to peers. Benefited from venting emotions and support from peers. Progress noted as she reported improved mood after venting. Will continue in IOP to stabilize mood and prevent further decompensation. Narrative Note: []
--- NOTE | 2018-09-07 10:15 | BH.SGPN.GN ---
Behaviors/Verbalizations/Mental Status: []Client alert and oriented, casual dress, hygiene fair. Eye contact good. Motor activity consistent with client's baseline. Speech within normal limits. Affect constricted, mood euthymic. Thoughts linear, logical, no signs of hallucinations or delusions. Client Response/Progress/Benefit: []Client responded well to session, providing input to discussion. Client connected with the quote sharing, ?if you fear change you won?t do what you need to.? Client helped the group identify ways emotions can positively and negatively impact the change process. Client stated ?you can be confused about change? which could lead to feeling overwhelmed or not taking steps toward change. Client appeared to benefit from processing how emotions and thoughts influence a person?s ability to manage and cope with change. Progress noted as shown by client?s report of reduced irritability and increased socialization. Client to continue IOP to increase use of healthy coping skills and improve mood stability.
--- NOTE | 2018-09-07 11:20 | BH.SGPN.GN ---
Behaviors/Verbalizations/Mental Status: []Client alert and oriented, casual dress, hygiene fair. Eye contact good. Motor activity somewhat restless. Speech within normal limits. Affect full-laughing, mood euthymic. Thoughts linear, logical, no signs of hallucinations or delusions. Client Response/Progress/Benefit: []Client responded well to session, active participant. Client engaged in the activity through providing words of encouragement. Client shared ?if you stay positive you never really start over.? Client reported coming to IOP was a positive change sharing, ?I didn?t expect it would help.? Client stated she wants to continue working on improving her mental health by talking with her house mates as her goal for this week. Client appeared to benefit from reflecting on a positive change she went through. Client to continue IOP as she can continue to benefit from ongoing consistent application of healthy coping skills to regulate emotions and increase self-awareness.
--- NOTE | 2018-09-08 09:59 | BH.COMM ---
Communication Note - Communication with Client Communication Note: Client's aide, Kailey, called to cancel for client as client reports being too tired to attend group today. Kailey reported client plans to attend group tomorrow, 09/09/18. Therapist called back and left a message offering an individual session to client today as client was schedule to meet with this therapist.
--- NOTE | 2018-09-09 09:10 | BH.SGPN.GN ---
Behaviors/Verbalizations/Mental Status: []Pt eye contact good, casually dressed, motor activity appropriate, speech normal rate and tone, mood euthymic, congruent affect, thoughts linear and intact, no evidence of delusions or hallucinations. Reviewed client?s symptom tracker, no signs of suicidal ideation, plan, or intent as of today. Client Response/Progress/Benefit: []Client reported she is feeling relieved to because she made a decision last night that [place]. Client shared the stress with the housing Department was increasingly negatively impacting her. Client shared she has the resources available to not utilize the resources from [facility]. Client identified feeling optimistic. Client demonstrating progress as evidenced by her reporting improved mood and following through with making a decision. Client to continue IOP level of care to stabilize mood, maintain gains and prevent decompensation. Narrative Note: []
--- NOTE | 2018-09-09 15:02 | BH.MDN ---
Multi-Disciplinary Note - Note 45-min Individual Time Started:: 10:35 Date: 09/09/18 Purpose of session/treatment goals addressed:: The purpose of this session was to help client gain insight to her personal warning signs, triggers, and symptoms of bipolar disorder. Another goal was to teach client how to cope with these warning signs, triggers, and symptoms. Other topics included communication and goal setting. Eye Contact:: Fair Motor Activity:: Restless - consistent with her cerebral palsy. Appearance:: Casual Speech:: Appropriate - consistent with client's baseline Mood:: Euthymic Affect:: Bright Thoughts:: Linear, Logical, No evidence of hallucinations/delusions noted Staff Interventions:: Therapist used active listening and open-ended questions to explore client's current mood state, symptoms, and stressors. Therapist used a worksheet of common warning signs and triggers for bipolar disorder to help client identify ones that pertain to client and increase awareness. Therapist provided psychoeducation on bipolar disorder and helped client identify positive supports and coping skills to manage symptoms and warning signs. Therapist and client completed a worksheet that mapped out client's warning signs for cesar and depression, triggers, and healthy coping skills. Therapist gave client homework to ask her friend Chula to write out supportive statements for client to keep in her crisis kit. Client Response:: Client responded well to session, open to meeting with therapist and discussing her warning signs. Client shared since starting the Lamictal, client feels more stable and not so bumpy. Client reported her irritability has decreased and her concentration has improved, the static brain is gone. Client stated her mood has also improved due to resolving a housing issue. Client receptive to learning about different triggers and warning signs for bipolar disorder. Client identified several triggers including life-event stress, over-stimulation, and negative thinking. Client shared she liked the idea of completing a worksheet that had her warning signs, triggers, and coping skills on it, so client's supports can help client be aware and manage symptoms. Client identified coping skills to manage depressive and manic episodes. Client shared her friend Chula is a big support who helps client feel better by talking client through anxiety and depression. Client receptive to asking Chula to write positive statements for client to keep in her crisis kit as a tool to manage depression and anxiety. Risks/Concerns:: Client denies suicidal ideation, plan, and intent as of 09/09/18. Client since starting Lamictal last week her anger and urges to harm others have reduced. Progress Toward Goals/Plan:: Client seems to be progressing towards treatment goals as evidenced by client's report of feeling more stable and not so bumpy which client contributes to medication and coping skills. Client also progressing as she reports increased awareness of her personal warning signs and triggers for depression and cesar. Client continues to endorse anxiety and negative thoughts and would like to improve in coping with her bipolar. Client shared she would also like her supports to become more aware of bipolar and how to help client manage. Time Stopped:: 11:15
--- NOTE | 2018-09-13 10:10 | BH.SGPN.GN ---
Behaviors/Verbalizations/Mental Status: []Eye contact is good. Motor activity is appropriate. Appearance is neat. Speech is Appropriate. Mood is anxious. Affect is congruent. Thoughts are linear and logical. No evidence of psychosis. Client Response/Progress/Benefit: []Pt contributed at times to discussion, engaged in activity and listened attentively to others. Pt reported when she doesn't set goals she tends to get confused because she doesn't have any direction in her life. Pt related to others about the importance of setting small goals because large goals tend to result in nothing getting done. Pt seemed to benefit from learning about SMART goals and practicing setting small goals in the moment. Narrative Note: []
--- NOTE | 2018-09-13 11:20 | BH.SGPN.GN ---
Behaviors/Verbalizations/Mental Status: []Pt eye contact fair, casually dressed, motor activity appropriate, speech normal rate and tone, mood euthymic, congruent affect, thoughts linear and intact, no evidence of delusions or hallucinations. Client Response/Progress/Benefit: Pt attentive to others and contributed thoughts to discussion. Pt reported her goal is to increase awareness of her warning signs when getting angry. Pt reported this goal would benefit her so she can use her healthy skills when angry. Pt reported obstacle to accomplishing her goal to be forgetting. Pt reported a solution to her obstacle is to use her supports to help remind her. Pt seemed to benefit from identifying a small goal to help keep her focused and moving forward. Narrative Note: []
--- NOTE | 2018-09-15 10:12 | BH.SGPN.GN ---
Behaviors/Verbalizations/Mental Status: []Client alert and oriented, neatly dressed and groomed. Eye contact good. Motor activity consistent with client's baseline. Speech within normal limits. Affect constricted, mood euthymic. Thoughts linear, logical, no signs of hallucinations or delusions. Client Response/Progress/Benefit: []Client responded well to session, participating in activity and discussion. Client discussed coping skills with the group and how one develops coping skills. Client stated people can learn unhealthy coping skills from friends and family. Client stated in order to get better coping skills ?sometimes you have to cut negative people out of your life.? ?Client participated in a group activity and gained awareness that having a strong foundation of coping skills builds resilience. Client appeared to benefit from learning about how one learns coping skills and from recognizing the importance of having internal and external coping skills. Client seems to be progressing as evidenced by her report of increased mood stability, but she continues to struggle with managing irritability and anxiety.
--- NOTE | 2018-09-15 11:10 | BH.SGPN.GN ---
Behaviors/Verbalizations/Mental Status: []Client alert and oriented, casually dressed. Eye contact good. Motor activity within normal limits for client. Speech within normal limits. Affect constricted, mood euthymic, anxious. Thoughts linear, logical, no signs of hallucinations or delusions. Client Response/Progress/Benefit: []Client responded well to session, providing feedback. Client helped the group discussed the different categories of coping skills and the purpose each one serves in managing mental health symptoms. Client created a coping skills menu with a coping skill from each category- distraction, grounding, emotional release, self-love, and thought challenge. Client?s menu included: cooking, positive affirmations, taking care of basic needs, and connecting with others. Client agreed with peers that it is important to have a variety of coping skills, ?because you don?t want to only use distractions all the time.? Client appeared to benefit from gaining numerous coping skills and learning the pros and cons of each coping skill category. Client to continue IOP to prevent decompensation and increase mood stability.
--- NOTE | 2018-09-15 16:22 | BH.MDN_ITS ---
Multi-Disciplinary Note - Note 60-min Individual Time Started:: 09:10 Date: 09/15/18 Purpose of session/treatment goals addressed:: The purpose of this session was to address client's current stressors, symptoms, warning signs and triggers. Another goal was to identify coping skills for client to use when she recognizes warning signs. Symptoms/Behavior:: Client requested her aide be present for session, so client's aide could learn strategies to help client as well. Eye Contact:: Fair Motor Activity:: Restless - increased restlessness when talking about warning signs. Appearance:: Casual Speech:: Appropriate - within normal limits for client Mood:: Euthymic Affect:: Congruent Thoughts:: Linear, Logical, No evidence of hallucinations/delusions noted Staff Interventions:: Therapist used active listening and open-ended questions to explore client?s current stressors, symptoms, and warning signs. Therapist provided psychoeducation on bipolar disorder to increase awareness for client and her aide. Therapist helped client and her aide identify client?s emotional, physical, and behavioral warning signs for cesar, anxiety, and depression. Therapist reviewed coping strategies client can use when she, or her aide, recog nize warning signs. Therapist assisted client in starting a coping skills handbook for client to take with her. Therapist lead client through a guided imagery script to practice mindfulness and stress management. Client Response:: Client responded well to session, open to meeting with therapist. Client reported she has been doing well and feeling more stable. Client wanted her aide present during session, so client's aide could learn more client's about coping skills and warning signs. Client's aide provided insight to physical and emotional warning signs she recognizes when client is upset such as increased tremors and irritability. Client shared they have been trying to practice different coping strategies to manage anxiety and depression. Client reported she can improve with managing frustration and impatience as client has said things I don't mean when feeling these emotions and client would like to prevent that. Client shared most of the time her impatience and frustration are triggered from feeling over stimulated or not having control. Client receptive to learning coping strategies that could help client in those moments such as taking headphones with her when client has appointments. Client also open to creating a coping skills book for client to take with her that would include pictures of her pets, quotes, and different strategies to try. Client engaged in the guided imagery activity and reported it was peaceful. Client shared it would be helpful if her aide pointed out warning signs so then client could practice these coping skills with the goal of client being able to address warning signs with less assistance in the future. Risks/Concerns:: Client denies suicidal ideation, plan, and intent as of 09/15/18. Client reports the medication has stabilized her moods. Progress Toward Goals/Plan:: Client appears to be demonstrating progress towards treatment goals as evidenced by her report of a more stable mood, reduced irritability, and improved outlook. Client shared group has helped give her structure and enjoyment. Client open to possibly attending events at [employer] and the library. Client to find pictures of her pets for her coping skills books and practice skills discussed in session. Client to continue IOP to prevent decompensation and increase emotional regulation skills. Time Stopped:: 10:03
--- NOTE | 2018-09-16 09:10 | BH.SGPN.GN ---
Behaviors/Verbalizations/Mental Status: [] Eye contact is good. Motor activity is appropriate. Appearance is casual. Speech is baseline. Mood is euthymic. Affect is full. Thoughts are linear and logical. No evidence of psychosis. Reviewed daily check in sheet and no reports of suicidal ideations or intent. Client Response/Progress/Benefit: [] Pt was an active participant in group discussion on managing negative self-talk when alone and unrealistic demands we place on ourselves. Emotion for today is optimistic. She reports that her mood has beenon the high side this week. Doesn't feels as restless or energetic as she was previous to starting on mood stabilizer. Believe that since starting the program she is sleeping better as she has not experienced staying up for several days as she used to in the past. Denies any depressive symptoms. Also feels that she is more assertive with roommates and BF. Provided feedback to peers however was off topic at times when giving feedback. Progress noted per pt report as mood is stablizing. Will continue to program to stabilize mood and prevent further decompensation. Narrative Note: []
--- NOTE | 2018-09-16 10:19 | BH.NET ---
Nursing Education/Training - Session Information Type of Session: Individual Medical Management:: medications: lamictal and prozac Symptom management (include medical issues as they relate to psychiatric symptoms):: Client is to increase her Lamictal to 50mg this week and asked if she should decrease her Prozac again. Client is advised to leave the Prozac at the current dose and not to change the dose of two medications at once. Will reevaluate next week.
--- NOTE | 2018-09-21 09:10 | BH.SGPN.GN ---
Behaviors/Verbalizations/Mental Status: []Client alert and oriented, neatly dressed and groomed. Eye contact good. Motor activity within normal limits for client. Speech within normal limits. Affect congruent, mood euthymic. Thoughts linear, logical, no signs of delusions or hallucinations. Therapist reviewed client's symptom tracker, no signs of risk AEB client denying suicidal ideation, plan, and intent as of 09/21/18. Client Response/Progress/Benefit: []Client responded well to session, supportive to peers. Client shared she does not have much to report, and that she is feeling good and okay. Client identified several positives including cleaning her house yesterday, maintaining boundaries, and communicating her needs to her fiance. Client reported she has no current stressors due to client's improved mood and keeping negative people away. Client appeared to benefit from reflecting on positives and providing support to peers. Progress noted as shown by client's improved mood, but she can continue to benefit from gaining coping skills to manage warning signs and frustration with others.
--- NOTE | 2018-09-21 10:10 | BH.SGPN.GN ---
Behaviors/Verbalizations/Mental Status: [] Pt eye contact good, casually dressed, motor activity appropriate, speech normal rate and tone, mood euthymic, congruent affect, thoughts linear and intact, no evidence of delusions or hallucinations. Client Response/Progress/Benefit: []Pt engaged in session AEB pt sharing thoughts and feelings and listened attentively to others. Pt connected with the quote reported there have been times in which she didn't make a change because she was afraid people would be upset with her. Pt able to recognize putting others first doesn't help her get to where she wants in life. Pt shared the following are things that keep her stuck: unmanaged anger, toxic people, and putting others first. Pt identified her anger to be keeping her stuck the most. Pt seemed to benefit from increased awareness of what is contributing to pt staying stuck and not moving forward. Narrative Note: []
--- NOTE | 2018-09-21 11:15 | BH.SGPN.GN ---
Behaviors/Verbalizations/Mental Status: [] Pt eye contact good, casually dressed, motor activity appropriate, speech normal rate and tone, mood euthymic, congruent affect, thoughts linear and intact, no evidence of delusions or hallucinations. Client Response/Progress/Benefit: []Pt listened attentively to others and was engaged in creating small goals for the next couple of weeks. Pt reported for her plan she is focusing on decreasing her out of control anger. Pt stated focusing on this will benefit her so she can be more in control of her emotions and know what she can do to fix it. Pt shared her first small goal is after each anger outburst she will process what triggered the anger to increase her self-awareness. Pt reported her second small goal is identify at least one positive from the day to focus on with the intention of increasing her ability to see good. Pt seemed to benefit from creating small goals she can focus on throughout the next couple of weeks. Pt to continue IOP level of care to maintain gains and prevent decompensation. Narrative Note: []
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
[2018-09-30 15:45] VITALS: BP 107/68; PULSE 68; RESP 14
== END 2018-09-28 23:59 ==
LOC: BHIOP 09:00
PROVIDERS: Family Provider Internal Medicine; PCP Internal Medicine; Referring Provider Psychiatry & Neurology Psychiatry; Visit Provider Psychiatry & Neurology Psychiatry
DX: F31.9 Bipolar disorder, unspecified (principal); F41.9 Anxiety disorder, unspecified
CPT/HCPCS: H0035; 90834; 90837; 90853

== ENCOUNTER 2018-09-29 09:00 | Outpatient (RCR) | payer MEDICARE, MEDICAID, SELFPAY ==
--- NOTE | 2018-09-29 10:02 | BH.SGPN.GN ---
Behaviors/Verbalizations/Mental Status: []Client alert and oriented, casual dress, hygiene good. Eye contact good. Motor activity restless especially towards the end of group. Speech within normal limits. Affect constricted, mood anxious, euthymic. Thoughts linear, logical, no signs of hallucinations or delusions. Client Response/Progress/Benefit: []Client responded well to session, engaged- but increased restlessness. Client appeared to connect with the quote sharing, ?we put up our own barriers.? Client created a visual representation of her current and desired realities in regards to mental wellness. In client?s current reality client is on a bumpy road with her supports. Client stated this represents client ?working on my goals and managing, but still feeling slightly down.? Client?s desired reality depicts client on the same bumpy road, but with more supports and more confidence. Client appeared to benefit from gaining awareness of what her current and desired realities look like as well as reflecting on progress she has made. Client to continue IOP to prevent decompensation and increase emotional regulation skills.
--- NOTE | 2018-10-05 09:02 | BH.SGPN.GN ---
Behaviors/Verbalizations/Mental Status: [] Client Response/Progress/Benefit: [] Client was not billed for this session/service. Added in error.
--- NOTE | 2018-10-05 10:08 | BH.SGPN.GN ---
Behaviors/Verbalizations/Mental Status: []Client alert and oriented, neatly dressed and groomed. Eye contact good. Motor activity consistent with client's baseline. Speech within normal limits. Affect congruent, mood euthymic. Thoughts linear, logical, no signs of hallucinations or delusions. Client Response/Progress/Benefit: []Client responded well to session, active participant. Client appeared to connect with the quote and topic of cognitive distortions sharing, ?your emotions impact your thoughts.? Client shared one cannot control the thoughts the come into their mind, ?but how we react matters.? Client reported if one does not challenge cognitive distortions it can lead to increased depressive symptoms or anger. Client helped the group discuss the most common types of distortions and stated she most often uses jumping to conclusions and personalizing. Client reported when others use the distortion, labeling, it can cause feeling to be hurt. Client provided a personal example of a time this happened to her. Client appeared to benefit from gaining insight to the cognitive distortions she uses and how they impact mental health. Client to continue IOP to promote mood stability and increase awareness.
--- NOTE | 2018-10-05 11:15 | BH.SGPN.GN ---
Behaviors/Verbalizations/Mental Status: [Client engaged in session, actively contributed throughout, and maintained consistent eye contact. She was dressed in casual and comfortable attire, appropriate grooming/hygiene. Client Motor activity remained WNL for her baseline muscle spasms consistent with dx of cerebral palsy. Client speech a normal rate and tone delayed or difficulty speaking consistent w/ medical dx, mood euthymic, reflective. Affect congruent with mood, . Client thoughts remained linear and logical, no evidence of delusions or hallucinations.] Client Response/Progress/Benefit: [Client receptive of session and remained an active participant. Client contributed to discussion reviewing potential barriers in combating distorted thoughts as well as strategies for improving ability to do so. Client discussed the impact toxic relationships can have on one?s ability to combat negative or distorted thinking and provided a personal example. She benefitted from taking on a leadership role in activity portion and challenging herself to be more physically engaged. Client displaying progress in levels of comfort in group and ability to begin confronting barriers AEB client disclosing overcoming self-doubt and urges to act on impulse. Client would benefit from continuing to work on application of internal coping skills outside group environment.] Narrative Note: []
--- NOTE | 2018-10-06 10:52 | BH.MDN ---
Multi-Disciplinary Note - Note 60-min Individual Time Started:: 09:20 Date: 10/06/18 Purpose of session/treatment goals addressed:: The purpose of this session was to address client's current stressors and symptoms as well as discuss strategies to promote mood stability and prepare for winter. Other topics included: self-awareness and conflict resolution. Symptoms/Behavior:: Client requested her aide be present for session. Eye Contact:: Good Motor Activity:: Appropriate - mostly appropriate-restless on two occasions when discussing an issue at home. Appearance:: Casual Speech:: Appropriate Mood:: Euthymic, Anxious Affect:: Congruent Thoughts:: Linear, Logical, No evidence of hallucinations/delusions noted Staff Interventions:: Therapist used active listening and open-ended questions to explore client?s current stressors and symptoms. Therapist helped client process as recent conflict at home and discussed options to resolve the conflict and maintain healthy boundaries. Therapist and client discussed the impact the colder weather has been having on client?s mood, thoughts, and behaviors. Therapist provided client with a list of ideas, activities, and strategies that could promote a positive mood during the winter. Therapist explored which ideas client enjoyed and helped client and her aide create a tentative plan for creating an ?outdoor? space in client?s garage. Therapist reviewed possible triggers and warning signs for increased irritability and had client identify ones that relate to her. Client Response:: Client and aide responded well to session. Client appeared to have increased awareness that her recent irritability and agitation was triggered by the colder weather. Client and therapist discussed other emotions that could present as irritability such as anxiety and feeling not in control. Client receptive to discussing strategies and ideas to improve her mood during the winter. Client stated being outside helps calm client and during the winter client does not have this coping skill to utilize. Client liked the idea of creating an outdoor space in her garage that would include a SAD lamp, plants, nature sounds, and other outdoor elements. Client's aide willing to help client set up this space. Therapist also discussed establishing a social routine to help cope with the colder weather. Client receptive to volunteering at the [employer] and going to [employer]. Client brought up a current issue at home and processed it with therapist. Client and therapist discussed options for managing the conflict. Client and her aide reported the best plan would be to confront the conflict by having a house meeting to discuss this issue and find resolution. Client and therapist reviewed calming strategies and conflict resolution techniques. Risks/Concerns:: Client denies suicidal ideation, plan, and intent as of 10/06/18. Progress Toward Goals/Plan:: Client appears to be demonstrating progress towards treatment goals as evidenced by her reduced DSM-5 scores and report of applying healthy coping skills to manage symptoms. Client?s mood has improved, but she continues to struggle with recognizing triggers for her irritability. Client also reports ongoing conflict at home with one of her roommates which contributes to client?s agitation and anxiety. Client reports increased insight that her irritability, anxiety, and restlessness come from weather changes, change in routine, and not feeling in control. Client reports plan to have a ?house meeting? with her roommates to try and resolve the conflict. Client and aide to work on creating an ?outdoor? space in her garage where client can go in the winter. Client to continue IOP to promote gains and emotional regulation while coping with current stressors. Time Stopped:: 10:30
--- NOTE | 2018-10-06 10:54 | BH.TPR ---
Treatment Plan Review Date of Admission:: 09/01/18 Date of Treatment Plan Review:: 10/06/18 Admitting Diagnoses:: Bipolar disorder-F 31.9; PTSD; Anxiety Current Diagnoses:: Bipolar disorder-F 31.9; PTSD; Anxiety Patient's Response to Treatment:: Client appears to be responding well to [facility] as shown by her consistent attendance and engagement in group and individual sessions. Client shared when she first was admitted into [facility] she was unsure about doing the program, but now client looks forward to coming. Client has demonstrated progress towards treatment goals as evidenced by her reduced DSM-5 cross cutting scores, increased socialization, and self-report of increased emotional regulation. Client is an active group member as she contributes positively to discussion as well as provides supportive statements to peers. Client completes homework assignments and actively uses her coping skill handbook to manage anxiety and irritability per client- and her aide's- report. Client is currently working on creating an outdoor space in client's garage where client can go during the winter to manage depression, anxiety, and agitation. Client and therapist working on establishing outpatient psychiatric and counseling services. Status of Current Problems and Symptoms: Client has improved with managing her symptoms and recognizing triggers in the moment, but she can improve with recognizing early warning signs and triggers for irritability, stress, and sad mood. Client also reports ongoing conflict at home with one of her housemates which contributes to client?s agitation and anxiety. Client reports concerns about managing her symptoms during the winter due to the weather restricting client's ability to go outside to regulate emotions. Problem #1 Problem Name:: Pt. will increase mood stability, decrease depressive symptoms, and anger Status of Goals:: Objective 1- accomplished. Client able to identify at least 2 warning signs and triggers for cesar and depression and reports using her pets, her crisis survival kit, and positive affirmations to manage these symptoms. Additionally, client?s DSM-5 scores for depression and cesar have decreased since admission. At admission client scored 4 out of 8 for depression and 4 out of 8 for cesar. At review, client scored 2 out of 8 for depression and 0 out of 8 for cesar. Objective 2- accomplished. Client reports utilizing her stress ball, taking breaks, and playing video games to manage depression and anger. Client's DSM-5 scores for anger have also decreased since admission going from a 4 out of 4 to a 2 out of 4 at review. Team Recommendations:: Recommended continued efforts to increase consistent application of healthy coping skills and promote mood stability, especially during the winter months as client reported difficulty regulating emotions during past [place]. Client encouraged to follow up with [facility] for aftercare. Problem #2 Problem Name:: Pt. will decrease frequency and intensity of anxiety and rumination Status of Goals:: Objective 1- partially accomplished. Client?s DSM-5 scores for anxiety have decreased since admission as her scores went from a 12 out of 12 to a 3 out of 12 at review. Client able to report using healthy coping skills to manage anxiety, but she continues to struggle with identifying negative thought patterns. Client and therapist currently working on increasing self-awareness. Objective 2- accomplished. Client can identify at least two anxiety and trauma triggers and has demonstrated ability to use calming coping skills to regulate anxiety both in sessions and at home per client and her aide?s report. Team Recommendations:: Recommended continued efforts to increase consistent application of healthy coping skills. Client recommended to follow up with [facility] for aftercare.
--- NOTE | 2018-10-07 10:10 | BH.SGPN.GN ---
Behaviors/Verbalizations/Mental Status: []Client alert and oriented, casual dress, hygiene good. Eye contact good. Motor activity appropriate. Speech within normal limits. Affect full, mood euthymic. Thoughts linear, logical, no signs of hallucinations or delusions. Client Response/Progress/Benefit: []Client responded well to session, providing positive input. Client appeared to connect with the topic of conflict, sharing ?conflict can be good? and it can release stress. Client reported one does not always realize how much conflict impacts mental health. Client helped the group discuss the different types of conflict resolutions styles. Client shared the avoidant and accommodating types ?just pushes the conflict under the rug.? Client shared she is direct when managing conflict because unresolved conflict increased client?s anxiety. Client appeared to benefit from learning how the different conflict styles impact mental health and relationships. Client to continue IOP as she has made progress with mood stability, but she can continue to increase use of healthy coping skills.
--- NOTE | 2018-10-07 11:12 | BH.SGPN.GN ---
Behaviors/Verbalizations/Mental Status: [Client receptive of session, maintained fair to good eye contact, input provided though mostly a passive participant during activity potion. Appearance casual, appropriate grooming/hygiene. Motor activity WNL to client baseline muscle spasms associated with CP dx. Client speech a normal rate and tone some delay related to CP dx, mood euthymic, positive. Affect congruent with mood. Client thoughts remained linear and logical, no evidence of delusions or hallucinations.]] Client Response/Progress/Benefit: [Client receptive of session, actively engaged in discussion portions of group, though took on a more passive role during activity portion. Did well to provide insight to related to the poor boundaries has on effective conflict resolution and provided a personal example. She benefitted from reflecting upon how her passive response to conflict in the activity may be related to client need for more information on a situation before actively addressing the potential conflict. Reports using more collaborative approaches to conflict unless feeling her needs are not met and then client applies assertive approaches. Client identified using a ball to determine who is allotted time for speaking as an approach that has helped her with resolving conflict situations. Recommended continued IOP tx to improve consistency of skill application and maintain stability.] Narrative Note: []
--- NOTE | 2018-10-07 13:09 | PN_ITS ---
Progress Note Patient is seen in follow-up for bipolar disorder, PTSD, anxiety. History is been obtained per interview with patient, discussion with staff, review of chart. Collateral information provided by nader Bonner. Interview conducted with patient and patient aide Kailey per patient request. Chief complaint-mood symptoms and anxiety Interim history Patient and patient aide report increased mood stability over the past 2-3 weeks. Mood overall improved with decreased irritability. Patient reports increased ability to focus and concentrate. Aide notes overall decreased anxiety. Patient attributes improvement to Lamictal and also increased coping skills gained through IOP. No suicidal or homicidal ideation. No symptoms consistent with psychosis. Sleeping from 9 PM until 7:45 AM. Appetite normal. Denies nausea vomiting or diarrhea. Complaint of 2-3 migraines over the past week. Reports decreased caffeine from 6-8 caffeinated drinks to 4 drinks daily. Compliant with medication. Denies adverse effects. No rash. Mental status exam Alert and oriented . No acute distress. Limited to wheelchair. Movements consistent with baseline movements of her cerebral palsy. Appears stated age. Casually dressed and groomed. Appropriate hygiene. Cooperative with interview. Good eye contact. No psychomotor agitation or retardation. Mood depressed but improved. Affect congruent. Speech is clear and with regular rate and rhythm. Language fluent. Thought process organized. Associations logical. Thought content significant for ruminative anxiety and themes of depression. No suicidal or homicidal ideation related or detected.. No symptoms consistent with psychosis noted or detected. Immediate recent and remote memory grossly intact. Attention and concentration are fair. Estimated intelligence and fund of knowledge average. Judgment and insight fair. Labs and testing Lab work requested from primary care physician. Further lab work will be obtained as needed. Diagnosis Bipolar disorder-F 31.9 PTSD Anxiety Cerebral palsy Plan Continue IOP. The structured setting is necessary to prevent decompensation. R isk-benefit alternative of medications discussed with patient. Patient acknowledges understanding. Increase Lamictal to 100 mg daily. Dispense #30 with 1 refill. Decrease Prozac to 30 mg daily. Continue Seroquel 50 mg nightly. Patient acknowledges understanding and is in agreement with plan. Feels able to maintain safety. Agrees to seek help or emergency care if feeling unsafe to self or others. Encouraged ongoing caffeine reduction. 16 minutes of supportive psychotherapy provided.
--- NOTE | 2018-10-14 14:48 | BH.COMM ---
Communication Note - Communication with Client Communication Note: Client unable to make it to IOP today due to illness. Client was sick on 10/12/18 and missed group that day as well. Client was scheduled to see this therapist today for an individual session, so the session was unable to take place. Client to attend group three days next week and meet individually with this therapist.
--- NOTE | 2018-10-17 09:05 | BH.SGPN.GN ---
Behaviors/Verbalizations/Mental Status: [] Pt eye contact good, casually dressed, motor activity appropriate, speech normal rate and tone, mood euthymic, congruent affect, thoughts linear and intact, no evidence of delusions or hallucinations. Reviewed client?s symptom tracker, no signs of suicidal ideation, plan, or intent as of today. Client Response/Progress/Benefit: [] Client reported she has been sick over the past week but is finally feeling healthy. Client shared a positive is she is finding main appointment to get 1 of her cats fixed. Client shared another positive is doing the dishes and chores because the mass started to bother her. Client shared a stressor is her fianc?'s parents not being reliable and continuing to make excuses to not come over. Client expressed this is a stressor because her fianc?'s parents are supposed to be her backup care but currently is not demonstrating unreliable behavior. Client reported despite the stressors she is feeling optimistic this morning. Client showing progress with continued positive mindset and following through with her goals. Client to continue IOP level care to stabilize moods, maintain gains, and prevent decompensation. Narrative Note: []
--- NOTE | 2018-10-17 10:10 | BH.SGPN.GN ---
Behaviors/Verbalizations/Mental Status: [] Eye contact is good. Motor activity is appropriate. Appearance is casual. Speech is Appropriate. Mood is anxious. Affect is congruent. Thoughts are linear and logical. No evidence of psychosis. Client Response/Progress/Benefit: [] Pt was an active participant in group activity and discussion. Provided some thoughts into the definition and benefits to social support in mental wellness. Also participated in group discussion on obstacles to seeking support. Did well during activity and was able to connect activity to social supports stating that asking questions, being specific, clarifying perspectives, and clarifying emotions are necessary when seeking support. Talked at length regarding the importance of setting boundaries with other who believe they are supportive and gave examples of know good support from bad support. Discussed how IOP has been a beneficial support and made her less critical of her bipolar diagnosis. Benefited from psychoeducation. Progress noted as pt was able to identify the role that support plays in recovery and some obstacles to utilizing support. Will continue in IOP to maintain gains, prevent decompensation, and manage psycho-social stressors. Narrative Note: []
--- NOTE | 2018-10-17 11:10 | BH.SGPN.GN ---
Behaviors/Verbalizations/Mental Status: [] Eye contact is good. Motor activity is appropriate. Appearance is casual. Speech is Appropriate. Mood is anxious. Affect is flat. Thoughts are linear and logical. No evidence of psychosis. Client Response/Progress/Benefit: [] Pt was attentive during group discussion and completed worksheets. Active participant during discussion on different types of social support such as mental health, spiritual,personal, and professional. Group discussed the importance of support in different settings. Completed worksheet regarding pt's support desired (mental health, informational, relationship), how this support will help (empowerment,break cycle), and steps to take to get this support (reach out, communicate needs,). Pt reports goals to work at expressing myself more to my supports. Progress noted as pt was able to identify the different types of support and strategies to reach out to these supports. Will continue in IOP to maintain gains and prevent decompensation Narrative Note: []
--- NOTE | 2018-10-18 09:10 | BH.SGPN.GN ---
Behaviors/Verbalizations/Mental Status: [] Eye contact is good. Motor activity is appropriate. Appearance is casual. Speech is Appropriate. Mood is anxious. Affect is congruent. Thoughts are linear and logical. No evidence of psychosis. Reviewed daily check in sheet and no reports of suicidal ideations or intent. Client Response/Progress/Benefit: [] Pt was an active participant in group discussion. Provided appropriate feedback to peers. Emotion for today is tired. Reports that her sleep is stable however at times her mood is erratic with highs and lows. Discussed struggles with roommates and pt's desire to always be in control. Despite physical handicaps she reports that she is in charge of her house and Wears the pants in the house. Often times will take on other's tasks to ensure these tasks are completed. She reports that this helps with distraction. Group pointed out how this can lead to burnout and irritability. Progress noted per pt report. Will continue in IOP to maintain gains and prevent decompensation. Narrative Note: []
--- NOTE | 2018-10-18 10:10 | BH.SGPN.GN ---
Behaviors/Verbalizations/Mental Status: []Client alert and oriented, casual dress, hygiene good. Eye contact good. Motor activity appropriate. Speech tangential at times. Affect congruent to mood, mood euthymic. Thoughts linear, logical, no signs of hallucinations or delusions. Client Response/Progress/Benefit: [] Client responded well to session, active participant. Client able to identify benefits of effective communication such as getting one?s needs met. Client shared barriers to communication could include negative thinking and negative people. Client helped the group discuss the four different communication styles. Client reported before coming to IOP she mostly used passive communication ?I thought people knew what I needed and didn?t say anything.? However, client stated now she is assertive because ?people aren?t mind-readers.? Client reports feeling content with her current communication style. Client appeared to benefit from increasing awareness of how her communication style impacts her mental health and wellbeing. Progress noted as shown by client?s increased mood stability, but she can continue to benefit from ongoing maintenance of coping skills.
--- NOTE | 2018-10-18 11:12 | BH.SGPN.GN ---
Behaviors/Verbalizations/Mental Status: []Client alert and oriented, casual dress, hygiene good. Eye contact good. Motor activity appropriate. Speech tangential at times. Affect constricted, mood euthymic. Thoughts linear, logical, no signs of hallucinations or delusions. Client Response/Progress/Benefit: []Client responded well to session, off topic at times, but engaged. Client participated in the activity and was able to use assertive communication to help peers. Client stated one?s ?first thoughts? can be a barrier to communication as people have different perceptions and frames of reference. Client helped the group identify ways to improve communication including managing emotions, using ?I? statements and being mindful. Client acknowledges she has improved with being more assertive. Client?s goal to increase effective communication is to continue to ?learn how to express myself when I feel like I?m being attacked.? Client appeared to benefit from learning strategies to improve communication with supports. Progress noted as shown by client?s improved mood, but she can continue to benefit from coping skill maintenance.
--- NOTE | 2018-10-18 13:33 | BH.MDN ---
Multi-Disciplinary Note - Note 30-min Individual Time Started:: 12:15 Date: 10/18/18 Purpose of session/treatment goals addressed:: The purpose of this session was to address client's current symptoms, stressors, and identify strategies to better manage irritability. Another goal was to review progress and discuss discharge. Symptoms/Behavior:: Client requested her aide be present for session. Eye Contact:: Fair Motor Activity:: Restless Appearance:: Casual Speech:: Rapid Mood:: Euthymic, Irritable - when discussing a recent situation with her nurse outreach case manager Affect:: Congruent Thoughts:: Circular, No evidence of hallucinations/delusions noted Staff Interventions:: Therapist used active listening and open-ended questions to explore client?s current stressors and symptoms. Therapist helped client process as a recent situation involving client?s nurse outreach case manager and reviewed effective communication and emotional regulation skills to better manage irritability and anger. Therapist and client reflected on client?s progress since starting IOP and discussed plans for discharge. Therapist provided client local resources that could help client get a new wheelchair. Therapist used strengths perspective to empower client on progress. Client Response:: Client responded well to session, open to meeting with therapist. Client expressed recently feeling irritable and frustrated which was triggered by a visit from client's nurse outreach case manager. Client stated she made an inappropriate comment to the nurse outreach case manager. Client reported she felt as though she needed to say it, but client was receptive to identifying alternative ways to manage irritability rather than saying blunt things. Client liked the idea of writing out statements client would like to say and then ripping them up prior to her next case management visit. Client and therapist also reviewed assertive communication skills. Client reported belief she has made night and day progress since starting IOP. Client acknowledges positive changes in mood stability, communication, and application of healthy coping skills. Client reported her appointment at [facility] went well and client plans to continue seeing the therapist there after discharging from [facility]. Client expressed interest in getting case management at [facility] as well. Client shared she would like her last day to be next 10/28/18. Client continues to have issues with finding funding for a new wheelchair. Therapist and client's aide will contact local resources to find support in this area. Risks/Concerns:: Client denies suicidal or homicidal ideation, plan, and intent as of 10/18/18 Progress Toward Goals/Plan:: Client appears to be demonstrating progress towards treatment goals as evidenced by her reduced DSM-5 score, self-report of improved emotional regulation, and increased communication. Client continues to struggle at times with ?not having a filter? which leads to client saying inappropriate comments at times. However, client recognizes these comments have reduced in frequency since starting IOP. Client reports ?I have stressors, but I can cope with them.? Client acknowledges the progress she has made in IOP and agrees she is ready to discharge next week. Client can benefit from one more week of IOP for aftercare planning and to reinforce healthy coping skills. Client to continue IOP to promote gains and further increase consistent application of healthy coping skills. Time Stopped:: 12:50
--- NOTE | 2018-10-18 13:41 | BH.MDN_ITS ---
Multi-Disciplinary Note - Note 30-min Individual Time Started:: 12:15 Date: 10/18/18 Purpose of session/treatment goals addressed:: The purpose of this session was to address client's current symptoms, stressors, and identify strategies to better manage irritability. Another goal was to review progress and discuss discharge. Symptoms/Behavior:: Client requested her aide be present for session. Eye Contact:: Fair Motor Activity:: Restless Appearance:: Casual Speech:: Rapid Mood:: Euthymic, Irritable - when discussing a recent situation with her family preservation caseworker Affect:: Congruent Thoughts:: Circular, No evidence of hallucinations/delusions noted Staff Interventions:: Therapist used active listening and open-ended questions to explore client?s current stressors and symptoms. Therapist helped client process as a recent situation involving client?s family preservation caseworker and reviewed effective communication and emotional regulation skills to better manage irritability and anger. Therapist and client reflected on client?s progress s tuan starting IOP and discussed plans for discharge. Therapist provided client local resources that could help client get a new wheelchair. Therapist used strengths perspective to empower client on progress. Client Response:: Client responded well to session, open to meeting with therapist. Client expressed recently feeling irritable and frustrated which was triggered by a visit from client's family preservation caseworker. Client stated she made an inappropriate comment to the family preservation caseworker. Client reported she felt as though she needed to say it, but client was receptive to identifying alternative ways to manage irritability rather than saying blunt things. Client liked the idea of writing out statements client would like to say and then ripping them up prior to her next case management visit. Client and therapist also reviewed assertive communication skills. Client reported belief she has made night and day progress since starting IOP. Client acknowledges positive changes in mood stability, communication, and application of healthy coping skills. Client reported her appointment at [facility] went well and client plans to continue seeing the therapist there after discharging from [facility]. Client expressed interest in getting case management at [facility] as well. Client shared she would like her last day to be next 10/28/18. Client continues to have issues with finding funding for a new wheelchair. Therapist and client's aide will contact local resources to find support in this area. Risks/Concerns:: Client denies suicidal or homicidal ideation, plan, and intent as of 10/18/18 Progress Toward Goals/Plan:: Client appears to be demonstrating progress towards treatment goals as evidenced by her reduced DSM-5 score, self-report of improved emotional regulation, and increased communication. Client continues to struggle at times with ?not having a filter? which leads to client saying inappropriate comments at times. However, client recognizes these comments have reduced in frequency since starting IOP. Client reports ?I have stressors, but I can cope with them.? Client acknowledges the progress she has made in IOP and agrees she is ready to discharge next week. Client can benefit from one more week of IOP for aftercare planning and to reinforce healthy coping skills. Client to continue IOP to promote gains and further increase consistent application of healthy coping skills. Time Stopped:: 12:50
--- NOTE | 2018-10-27 09:05 | BH.SGPN.GN ---
Behaviors/Verbalizations/Mental Status: []Client alert and oriented, somewhat disheveled- hair unkempt. Eye contact good. Motor activity within client's normal limits. Speech within normal limits. Affect constricted, mood fatigued, euthymic. Thoughts linear, logical, no signs of hallucinations or delusions. Reviewed client?s symptom tracker, no risk for suicidal ideation, plan, or intent as of 10/27/18. Client Response/Progress/Benefit: []client responded well to session, providing encouraging words to peers. Client reports feeling ?neutral? today sharing she has stressors, but she is able to manage them. Client stated she has been sick with bronchitis, but she went to the doctors yesterday and got medicine. Client reported her mental health has been ?good? and that she is looking forward to tomorrow which is client?s last day in [facility]. Client reflected on her progress and provided advice to the group. Client appeared to benefit from reflecting on progress. Client to discharge from [facility] tomorrow, but she can benefit from on more IOP day to reinforce healthy coping skills.
--- NOTE | 2018-10-27 10:20 | BH.AFTERPLAN ---
Aftercare Plan - Demographics Treatment End Date:: 10/28/18 Psychiatrist:: Maryann Lazo Psychiatrist Office #:: [id number] [facility] Therapist:: Le Roldan Therapist Phone #:: [phone] - Medications Home Medications: Home Medications Fluoxetine [Prozac] 40 mg PO DAILY 01/07/14 Montelukast [Singulair] 10 mg PO QHS 01/07/14 Omeprazole [Prilosec] 40 mg PO DAILY 01/07/14 Loratadine [Claritin] 10 mg PO DAILY 05/23/15 Lorazepam [Ativan] 0.5 mg PO DAILY PRN 06/15/16 Oxybutynin Chloride [Ditropan Xl] 10 mg PO DAILY 04/08/18 Ensure Enlive 120 ml PO 4X/DAY liquid 05/24/18 Quetiapine Fumarate [Seroquel] 50 mg PO QHS 07/27/18 Lamotrigine [Lamictal] 75 mg PO DAILY 09/02/18 - Plan Details Progress/Aftercare Plan Details:: Diana, you have done an amazing job with learning how to manage and cope with stressors and your mental health symptoms. You have gained awareness of warning signs for anxiety, cesar, and depression. You have consistently used healthy coping skills to take care of your emotions, prevent setbacks, and improve your mental well-being. You have increased effective communication with supports, better managed conflict, and set boundaries even when it was difficult. Your mood has been stable, and you have a positive outlook on your future. You have reached out to supports and let them know your needs which has been very helpful in treatment. Great job, Diana!! Strategies for Success:: 1. Pay attention to warning signs and emotions so you can cope with them. 2.Keep using healthy coping skills daily such as music, stress ball, playing with pets, talking with Kailey, and laughing. 3. Keep expressing your needs and emotions with your supports. 4. Keep up with medications and counseling. 5. Remember it's okay to take breaks to calm down and then return to the situation. 6. When anixety or anger gets high, use mindfulness- 5 things you can see, 4 things you can feel, 3 things you can smell, 2 things you can taste, and one thing you can hear. You can use any order. 7. Keep up the great work with setting boundaries and communicating what is important to you! 8. Find activities that will give you purpose and give you positive experiences such as [facility], volunteering, making an indoor/outdoor space in your house. 9. Remind yourself how far you have come and all the progress you have made! - Appointments Appointments/Referrals to Other Services:: 1. Follow up with [facility] 11/09/18. 2. [facility]. 3. [facility] for depression/bipolar support alliance on Mondays and Tuesdays. 4. Two-week follow up with me at [facility].
--- NOTE | 2018-10-27 10:27 | BH.IGGP_ITS ---
Aftercare Plan - Demographics Treatment End Date:: 10/28/18 Psychiatrist:: Maryann Lazo Psychiatrist Office #:: [id number] [facility] Therapist:: Le Roldan Therapist Phone #:: [phone] - Medications Home Medications: Home Medications Fluoxetine [Prozac] 40 mg PO DAILY 01/07/14 Montelukast [Singulair] 10 mg PO QHS 01/07/14 Omeprazole [Prilosec] 40 mg PO DAILY 01/07/14 Loratadine [Claritin] 10 mg PO DAILY 05/23/15 Lorazepam [Ativan] 0.5 mg PO DAILY PRN 06/15/16 Oxybutynin Chloride [Ditropan Xl] 10 mg PO DAILY 04/08/18 Ensure Enlive 120 ml PO 4X/DAY liquid 05/24/18 Quetiapine Fumarate [Seroquel] 50 mg PO QHS 07/27/18 Lamotrigine [Lamictal] 75 mg PO DAILY 09/02/18 - Plan Details Progress/Aftercare Plan Details:: Diana, you have done an amazing job with learning how to manage and cope with stressors and your mental health symptoms. You have gained awareness of warning signs for anxiety, cesar, and depression. You have consistently used healthy coping skills to take care of your emotions, prevent setbacks, and improve your mental well-being. You have increased effective communication with supports, better managed conflict, and set boundaries even when it was difficult. Your mood has been stable, and you have a positive outlook on your future. You have reached out to supports and let them know your needs which has been very helpful in treatment. Great job, Diana!! Strategies for Success:: 1. Pay attention to warning signs and emotions so you can cope with them. 2.Keep using healthy coping skills daily such as music, stress ball, playing with pets, talking with Kailey, and laughing. 3. Keep expressing your needs and emotions with your supports. 4. Keep up with medications and counseling. 5. Remember it's okay to take breaks to calm down and then return to the situation. 6. When anixety or anger gets high, use mindfulness- 5 things you can see, 4 things you can feel, 3 things you can smell, 2 things you can taste, and one thing you can hear. You can use any order. 7. Keep up the great work with setting boundaries and communicating what is important to you! 8. Find activities that will give you purpose and give you positive experiences such as [facility], volunteering, making an indoor/outdoor space in your house. 9. Remind yourself how far you have come and all the progress you have made! - Appointments Appointments/Referrals to Other Services:: 1. Follow up with [facility] 11/09/18. 2. [facility]. 3. [facility] for depression/bipolar support alliance on Mondays and Tuesdays. 4. Two-week follow up with me at [facility].
--- NOTE | 2018-10-27 11:16 | BH.SGPN.GN ---
Behaviors/Verbalizations/Mental Status: [ Eye contact good, casually dressed, motor activity appropriate for client baseline- tremors consistent with medical dx, speech normal rate and tone, mood euthymic, congruent affect, thoughts linear and intact, no evidence of delusions or hallucinations.] Client Response/Progress/Benefit: [Client well engaged and active throughout session AEB contributions to discussion, verbalizations provided in activity, and providing input during reflection. Client did well to make connections between barriers experienced by group in challenge activity and managing stressors in daily life. She expressed that asking for help and asserting boundaries as strategies in managing stress in life. Benefitted from improving ability to identify knowing what skills will be most effective in managing stress in the moment. Client reports that using the self-regulation skills she has learned in tx has improved her ability to prevent crisis escalation. Continue IOP level of care to decrease negative self-talk, increase use of healthy skills, and prevent decompensation.] Narrative Note: []
--- NOTE | 2018-10-27 14:53 | BH.MDN ---
Multi-Disciplinary Note - Note 30-min Individual Time Started:: 10:40 Date: 10/27/18 Purpose of session/treatment goals addressed:: The purpose of this session was to provide closure, evaluate progress, review strategies for success, and discuss aftercare plan. Symptoms/Behavior:: Client's aide present for session Eye Contact:: Good Motor Activity:: Restless - Client frequently adjusting in her chair Appearance:: Casual Speech:: Tangential Mood:: Euthymic Affect:: Full Thoughts:: Linear, Logical, No evidence of hallucinations/delusions noted Staff Interventions:: Therapist used open-ended questions to explore client's, and client's aide's, thoughts on client progress. Therapist reviewed strategies and coping skills with client to promote gains and prevent setbacks. Therapist discussed aftercare plan with client and used strengths-perspective to empower client. Therapist gave client a quote collage to provide closure. Client Response:: Client responded well to session, open to discussing progress and strategies for success. Client's aide shared she's able to handle stressful situations now which is huge. Client continues to experience conflict at home with her roommates, but she reports feeling better able to manage these situations and her emotions. Client reported using healthy coping skills just comes naturally for me now. [facility] from [facility] as well as continue individual counseling. Client, client's aide, and therapist reviewed strategies for success such as expressing emotions instead of keeping them in, taking breaks to cool off, communicating needs, using mindfulness and her stress ball, and staying consistent with utilizing healthy coping skills daily. Client expressed appreciation for [facility] staff and program. Risks/Concerns:: Client denies suicidal ideation, plan, and intent as of 10/27/18 Progress Toward Goals/Plan:: Client to discharge from [facility] tomorrow as she has made significant progress as evidenced by her reduced depression, anxiety, and anger. Client also reports improved emotional regulation, communication, and mood stability. Client can benefit from one more IOP day to reinforce healthy coping skills and get clarification on medication questions. Time Stopped:: 11:10
--- NOTE | 2018-10-27 15:22 | BH.MDN_ITS ---
Multi-Disciplinary Note - Note 30-min Individual Time Started:: 10:40 Date: 10/27/18 Purpose of session/treatment goals addressed:: The purpose of this session was to provide closure, evaluate progress, review strategies for success, and discuss aftercare plan. Symptoms/Behavior:: Client's aide present for session Eye Contact:: Good Motor Activity:: Restless - Client frequently adjusting in her chair Appearance:: Casual Speech:: Tangential Mood:: Euthymic Affect:: Full Thoughts:: Linear, Logical, No evidence of hallucinations/delusions noted Staff Interventions:: Therapist used open-ended questions to explore client's, and client's aide's, thoughts on client progress. Therapist reviewed strategies and coping skills with client to promote gains and prevent setbacks. Therapist discussed aftercare plan with client and used strengths-perspective to empower client. Therapist gave client a quote collage to provide closure. Client Response:: Client responded well to session, open to discussing progress and strategies for success. Client's aide shared she's able to handle stressful situations now which is huge. Client continues to experience conflict at home with her roommates, but she reports feeling better able to manage these situations and her emotions. Client reported using healthy coping skills just comes naturally for me now. Client stated [facility] discharging from [facility] as well as continue individual counseling. Client, client's aide, and therapist reviewed strategies for success such as expressing emotions instead of keeping them in, taking breaks to cool off, communicating needs, using mindfulness and her stress ball, and staying consistent with utilizing healthy coping skills daily. Client expressed appreciation for [facility] staff and program. Risks/Concerns:: Client denies suicidal ideation, plan, and intent as of 10/27/18 Progress Toward Goals/Plan:: Client to discharge from [facility] tomorrow as she has made significant progress as evidenced by her reduced depression, anxiety, and anger. Client also reports improved emotional regulation, communication, and mood stability. Client can benefit from one more IOP day to reinforce healthy coping skills and get clarification on medication questions. Time Stopped:: 11:10
--- NOTE | 2018-10-28 14:33 | BH.DS ---
Discharge Summary - Demographics Date of Admission:: 09/01/18 Discharge Date: 10/28/18 Presenting Problems at Admission:: Client is a 38-year old female who presented to the behavioral medicine [facility] for evaluation and treatment of mood symptoms and anxiety. One week prior to admission, client had symptoms consistent with cesar including feelings of anger, irritability, euphoria, excessive productivity and decreased sleep. Client presented to [facility] in a depressive episode following most recent manic episode. At admission, client endorsed crying spells, feelings of sadness, anhedonia and decreased energy. Client had occasional thoughts of hurting others, but she denied homicidal plan or intent. Client also endorsed moderate ruminative anxiety about everything and reported intrusive thoughts, avoidance, and hypervigilance consistent with PTSD. Client reported her mood symptoms, anxiety, and PTSD reduced her quality of life and ability to connect with others. Discharge Diagnoses:: Bipolar disorder F 31.9; PTSD; Anxiety Reason for Discharge:: Client has made significant progress as shown by client's reduced DSM-5 symptom scores and self-report of improved mood and functioning. For these reasons, client no longer meets criteria for [facility] level of care. - Treatment Progress During Treatment & Response: Client responded well to treatment as shown by her self-report of increased mood stability, improved emotional regulation, and positive outlook. Overall significant progress noted since starting [facility]. Client has demonstrated significant progress in reducing mental health symptoms, implementing calming coping skills, and communicating with supports. Client has endorsed mood stability for over two weeks. At admission, client scored a 45 on the DSM-5 cross-cutting symptom measure and at discharge, client scored a 5. Client's scores for depression and cesar both went from 4 out of 8 at admission to 0 out of 8 at discharge. Additionally, client's DSM-5 score for anxiety went from 12 out of 12 at admission, to 3 out of 12 at discharge. Client has met treatment plan goals and shared I did not expect to get out of this what I did. Issues Still to be Addressed:: Client demonstrated significant progress in IOP through medication management and implementing healthy coping skills. However, client can continue to benefit from ongoing reinforcement of calming strategies to manage anxiety and irritability. Client can also continue to practice self-awareness to help client recognize warning signs for depression, cesar, and anger quicker. Client acknowledges she can continue to work on having a filter and regulating her emotions when communicating with others. Lastly, client reported the group setting provided positive support and structure. Client was encouraged to follow up with local support groups, but there is a concern post discharge that client will not be able to attend these support groups consistently due to weather and needing a better wheelchair for transportation purposes. Discharge Recommendations/Instructions:: Client recommended to follow up with outpatient services through [facility] for individual counseling and [facility] for psychiatric services. Client is scheduled to see [facility] on 11/09/18. Client is scheduled for an intake appointment at [facility]. Client also encouraged to attend [facility] for ongoing social support and mental health resources. Lastly, client was given resources for mental health case management should client decide to follow through with the service. Discharge Handout: Complete Discharge Handout with client on aftercare options and continuity of care.
--- NOTE | 2018-10-28 14:36 | BH.DS_ITS ---
Discharge Summary - Demographics Date of Admission:: 09/01/18 Discharge Date: 10/28/18 Presenting Problems at Admission:: Client is a 38-year old female who presented to the behavioral medicine [facility] for evaluation and treatment of mood symptoms and anxiety. One week prior to admission, client had symptoms consistent with cesar including feelings of anger, irritability, euphoria, excessive productivity and decreased sleep. Client presented to [facility] in a depressive episode following most recent manic episode. At admission, client endorsed crying spells, feelings of sadness, anhedonia and decreased energy. Client had occasional thoughts of hurting others, but she denied homicidal plan or intent. Client also endorsed moderate ruminative anxiety about everything and reported intrusive thoughts, avoidance, and hypervigilance consistent with PTSD. Client reported her mood symptoms, anxiety, and PTSD reduced her quality of life and ability to connect with others. Discharge Diagnoses:: Bipolar disorder F 31.9; PTSD; Anxiety Reason for Discharge:: Client has made significant progress as shown by client's reduced DSM-5 symptom scores and self-report of improved mood and functioning. For these reasons, client no longer meets criteria for [facility] level of care. - Treatment Progress During Treatment & Response: Client responded well to treatment as shown by her self-report of increased mood stability, improved emotional regulation, and positive outlook. Overall significant progress noted since starting IOP. Client has demonstrated significant progress in reducing mental h ealth symptoms, implementing calming coping skills, and communicating with supports. Client has endorsed mood stability for over two weeks. At admission, client scored a 45 on the DSM-5 cross-cutting symptom measure and at discharge, client scored a 5. Client's scores for depression and cesar both went from 4 out of 8 at admission to 0 out of 8 at discharge. Additionally, client's DSM-5 score for anxiety went from 12 out of 12 at admission, to 3 out of 12 at discharge. Client has met treatment plan goals and shared I did not expect to get out of this what I did. Issues Still to be Addressed:: Client demonstrated significant progress in IOP through medication management and implementing healthy coping skills. However, client can continue to benefit from ongoing reinforcement of calming strategies to manage anxiety and irritability. Client can also continue to practice self- awareness to help client recognize warning signs for depression, cesar, and anger quicker. Client acknowledges she can continue to work on having a filter and regulating her emotions when communicating with others. Lastly, client reported the group setting provided positive support and structure. Client was encouraged to follow up with local support groups, but there is a concern post discharge that client will not be able to attend these support groups consistently due to weather and needing a better wheelchair for transportation purposes. Discharge Recommendations/Instructions:: Client recommended to follow up with outpatient services through [facility] for individual counseling and [facility] for psychiatric services. Client is scheduled to see [facility] on 11/09/18. Client is scheduled for an intake appointment at [facility] on 11/16/18. Client also encouraged to attend [facility] for ongoing social support and mental health resources. Lastly, client was given resources for mental health case management should client decide to follow through with the service. Discharge Handout: Complete Discharge Handout with client on aftercare options and continuity of care.
== END 2018-10-28 23:59 ==
LOC: BHIOP 09:00
PROVIDERS: Family Provider Internal Medicine; PCP Internal Medicine; Referring Provider Psychiatry & Neurology Psychiatry; Visit Provider Psychiatry & Neurology Psychiatry
DX: F31.9 Bipolar disorder, unspecified (principal); F41.9 Anxiety disorder, unspecified; F43.10 Post-traumatic stress disorder, unspecified; G80.9 Cerebral palsy, unspecified
CPT/HCPCS: H0035; 90832; 90837; 90853

== ENCOUNTER 2018-12-04 22:47 | Emergency (ER) | payer MEDICARE, SELFPAY ==
[2018-12-04 22:47] VITALS: BP 145/90; PULSE 117; RESP 16; TEMP 37.4; O2SAT 93; BMI 24.5
[2018-12-04] MEDS: 0.9% Normal Saline 1,000 ML 999 ML IV (23:32)
[2018-12-04] MEDS: Metoclopramide 10 MG/2 ML Vial IV (23:32)
[2018-12-04] MEDS: Ketorolac 30 MG/ML Syringe IV (23:32)
--- NOTE | 2018-12-05 00:15 | ED.DCSUM_ITS ---
- ER Visit Summary Date of Service: 12/05/18 Chief Complaint: Headache History of Present Illness: The patient is a 38 F who presents with a headache. She has been having similar intermittent headaches over the past 6-8 weeks since her Prozac dosing has been adjusted. She states her headache has been constant over the last 4 days and more severe. It was gradual onset. She does report associated photophobia and nausea. No vomiting no fever. No fall or head injury. Physical Examination: Heart rate 117 temperature 99.3 temporally, 98.4 when repeated orally Pupils are equally round reactive to light extraocular motion intact without pain or palsy Neck is supple no meningismus No focal or lateralizing neurological deficits normal strength and sensation Heart regular rhythm tachycardia Lungs are clear Abdomen soft Test Results: Not indicated Emergency Department Course and Treatment: Patient was treated with IV fluids Toradol and Reglan with significant relief here. Her headache is not completely resolved but she states she feels much better and she currently only has minimal discomfort. She will be discharged to follow-up with her physician as an outpatient. She understands return for new or worsening symptoms. Treatment Plan: [] Disposition: Discharge Impression: Headache This note was generated with [employer] dictation software. It may contain incorrect words, spelling, and punctuation that were not noted in review of the chart prior to signing ED Disposition - Plan for ED Patient: Chief Complaint: Headache Referrals: Roxanne Howell MD [Primary Care Provider] -
--- NOTE | 2018-12-05 00:15 | ED.DEP ---
ED Disposition - Plan for ED Patient: Chief Complaint: Headache Instructions: ED Cephalgia Unspecified Referrals: Roxanne Howell MD [Primary Care Provider] -
[2018-12-05 00:19] VITALS: RESP 16
== END 2018-12-05 00:31 | disposition home or self-care (01) ==
PROVIDERS: Emergency Provider Emergency Medicine; Family Provider Internal Medicine; PCP Internal Medicine
DX: R51 Headache (principal); F31.9 Bipolar disorder, unspecified; F43.10 Post-traumatic stress disorder, unspecified; Z79.51 Long term (current) use of inhaled steroids; Z79.899 Other long term (current) drug therapy
CPT/HCPCS: 96361; 96374; 96375; 99283; J7030

== ENCOUNTER 2019-02-05 18:30 | Emergency (ER) | payer MEDICARE, SELFPAY ==
[2019-02-05 18:31] VITALS: BP 116/72; PULSE 93; RESP 18; TEMP 36.4; O2SAT 97; BMI 25.4
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
== END 2019-02-05 19:39 | disposition home or self-care (01) ==
LOC: ED 19:27
PROVIDERS: Emergency Provider Emergency Medicine; Family Provider Internal Medicine; PCP Internal Medicine
DX: S06.0X0A Concussion without loss of consciousness, initial encounter (principal); S19.9XXA Unspecified injury of neck, initial encounter; K21.9 Gastro-esophageal reflux disease without esophagitis; F43.10 Post-traumatic stress disorder, unspecified; F31.9 Bipolar disorder, unspecified; Z79.51 Long term (current) use of inhaled steroids; Z79.899 Other long term (current) drug therapy; Y04.2XXA Assault by strike against or bumped into by another person, initial encounter; Y93.89 Activity, other specified; Y92.89 Other specified places as the place of occurrence of the external cause; Y99.8 Other external cause status
CPT/HCPCS: 99282

== ENCOUNTER 2019-09-14 17:42 | Emergency (ER) | payer MEDICARE, SELFPAY ==
[2019-09-14 17:43] VITALS: BP 131/94; PULSE 98; RESP 18; TEMP 36.7; BMI 24.5
[2019-09-14] MEDS: Ondansetron ODT 4 MG Tablet PO (18:27)
[2019-09-14] MEDS: Acetaminophen 500 MG Tablet 1000 MG PO (18:27)
--- NOTE | 2019-09-14 18:31 | ED.DCSUM_ITS ---
- ER Visit Summary Date of Service: 09/14/19 Chief Complaint: I feel like cutting History of Present Illness: The patient is a [address] Howell and a counselor at [facility]. She denies any history of cutting, but reports that she is stressed out because she is in court trying to keep her house. Today she reports that she has had thoughts of cutting herself. However, she denies any suicidal plan. When asked about suicidal thoughts she reports sort of. Patient also reports that she has an occipital headache that began this morning and is gradually worsened. Is 10 out of 10 severity. Nothing makes this worse. Is decreased with sleep. She denies any photophobia or injury to her head. She has had similar headaches in the past. She also reports that when she stood up earlier she got lightheaded. She did not pass out. She denies vertigo. Physical Examination: Vitals: Stable. Afebrile. General: Well-nourished and well-developed. Head: Normocephalic atraumatic. Neck: Supple, no lymphadenopathy. No JVD. Nontender. Cardiovascular: Regular rate and rhythm. No murmurs. Respiratory: No respiratory distress. Clear to auscultation bilaterally. Abdominal: Soft, nontender, nondistended, normal bowel sounds. No guarding, rebound, or peritoneal signs. Back: Nontender. Extremities: Nontender, no edema. Skin: Normal color, no rash. Neurologic: Alert and oriented ?3. Cranial nerves II through XII are intact. Normal strength and sensation. Psych: Mental status exam: Patient appears their stated age. Good posture and grooming. Good eye contact. Normal rate, volume, and latency of speech. No suicidal or homicidal ideation. No auditory or visual hallucinations. Flow of thought is logical. Insight and judgment is fair. Emergency Department Course and Treatment: Patient was given Tylenol and Zofran. She was seen by case management. She had a prolonged discussion with patient. Patient denies any suicidal ideation to her as well. She gave the patient more information about outpatient resources. Treatment Plan: Patient will be discharged instructions to follow-up with her counselor as soon as possible. Return to the emergency department for any worsening thoughts of harming herself or suicidal plan. Return to the emergency department for any worsening symptoms. Disposition: To home in improved and stable condition. Impression: 1. Depression. This note was generated with [employer] dictation software. It may contain incorrect words, spelling, and punctuation that were not noted in review of the chart prior to signing ED Disposition - Plan for ED Patient: Instructions: Depression Referrals: Counseling,Center [GROUP OF PHYSICIANS] - As soon as possible
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
[2019-09-14] MEDS: Ketorolac 30 MG/ML Syringe IM (19:35)
== END 2019-09-14 20:05 | disposition home or self-care (01) ==
PROVIDERS: Emergency Provider Emergency Medicine; Family Provider Internal Medicine; PCP Internal Medicine
DX: F32.9 Major depressive disorder, single episode, unspecified (principal); Z79.899 Other long term (current) drug therapy
CPT/HCPCS: 96372; 99283

== ENCOUNTER 2019-10-12 15:13 | Emergency (ER) | payer MEDICARE, SELFPAY ==
[2019-10-12 15:14] VITALS: BP 134/82; PULSE 84; RESP 16; TEMP 36.4; O2SAT 100; BMI 20.9
--- NOTE | 2019-10-12 15:28 | EKG12_ITS ---
Test Reason : Blood Pressure : / mmHG Vent. Rate : 086 BPM Atrial Rate : 086 BPM P-R Int : 160 ms QRS Dur : 084 ms QT Int : 364 ms P-R-T Axes : 058 044 044 degrees QTc Int : 435 ms Normal sinus rhythm Normal ECG Confirmed by MIRA ROJAS, DYLAN ([id number]), web editor CARLOS ODEN ([id number]) on 10/17/2019 11:22:49 AM Referred By: GREG Confirmed By:DYLAN MEYERS MD
--- NOTE | 2019-10-12 15:29 | RAD_ITS ---
STUDY: X-RAY CHEST REASON FOR EXAM: Female, 39 years old. Right chest pain TECHNIQUE: Frontal and lateral views of the chest. COMPARISON: April 08, 2018 FINDINGS: The lungs are clear and expanded. There is no demonstrated pleural abnormality. Normal size heart. Normal mediastinum and jacqueline. Normal visualized pulmonary arteries. Normal visualized aortic arch and descending thoracic aorta. Normal visualized thoracic spine. Normal visualized ribs, clavicles, and shoulders. There is no demonstrated abnormality of the visualized soft tissue structures of the upper abdomen. RAD/Chest PA and Lateral IMPRESSION: Normal x-ray examination of the chest. Electronically Signed: Dov Brink MD at 16:21 EST , Service support ,
--- NOTE | 2019-10-12 15:29 | ED.VIS.GEN ---
History of Present Illness Chief Complaint: Chest Pain Informant: Patient, Family Onset: Weeks - Greater than 1 week Context: Gradual Onset Timing: Continuous Quality: Pain Location: Right anterior chest inferior right breast Current Severity: Mild Maximum Severity: Severe Worsened by: Movement, coughing, being hugged Relieved by: Nothing Associated Symptoms: Rhinorrhea and slight cough Narrative: Patient is a 39-year-old woman who presents with anterior right chest pain that started greater than 1 week ago. Pain is been continuous. Describes it as pain. There is a pleuritic component. There is no history of PE or DVT. She does have URI symptoms that started 2 weeks ago. She denies intolerance to greasy or fried foods. She is status post cholecystectomy. She denies fever, chills or night sweats. She denies ocular, visual or auditory symptoms. She denies throat pain or change in voice. She denies back pain. There is no history of nausea or vomiting. Prior similar symptoms: No Recent Illness/Hospitalization: No - Past Medical History (1) Bipolar 1 disorder Status: Acute (2) Post traumatic stress disorder (PTSD) Status: Acute (3) Cerebral palsy Status: Chronic (4) Depression Status: Chronic (5) GERD (gastroesophageal reflux disease) Status: Chronic Past Medical History - Allergies and Home Meds Allergies/Adverse Reactions: Allergies Coconut Allergy (Verified 10/12/19 15:19) Anaphylaxis coconut oil Allergy (Verified 10/12/19 15:19) Anaphylaxis latex Allergy (Verified 10/12/19 15:19) Rash cyclobenzaprine HCl [From Flexeril] Adverse Reaction (Verified 10/12/19 15:19) gets mean guaifenesin [From Robitussin] Adverse Reaction (Verified 10/12/19 15:19) Other Primary Care Physician: Roxanne Howell MD [Primary Care Provider] - Prior records reviewed: Yes Surgical History: cholecystectomy, hysterectomy, - - Tubal ligation. Lives: With Family Smoking Status: Never smoker Alcohol: None Drugs: None - Family History Maternal Family History: Family History (Last Updated 09/30/18 @ 14:42 by NIKOS Harding RN) Other Bipolar disorder Family History: Reports: Diabetes Paternal Family History: Family History (Last Updated 09/30/18 @ 14:42 by NIKOS Harding RN) Other Bipolar disorder Family History: Reports: Heart Disease Review of Systems General: Denies: Chills, Fever, Sweats Eyes: Denies: Visual changes - bilaterally, Diplopia ENT: Denies: Rhinorrhea, Sore throat Cardiovascular: Reports: Chest pain - Chest pain is pleuritic and located on the right side.. Denies: Palpitations, Heart racing, -, - Respiratory: Reports: Cough. Denies: Dyspnea, Sputum, Dyspnea on exertion, Orthopnea, Paroxysmal nocturnal dyspnea, -, - Gastrointestinal: Denies: Abdominal pain, Nausea, Vomiting, Diarrhea, Melena, Hematochezia Genitourinary: Denies: Dysuria, Hematuria, Frequency Musculoskeletal: Denies: Myalgias, Arthralgias, Neck pain, Back pain, Swelling, Extremity Pain Skin: Denies: Rash, Wounds Neurological: Denies: Headache, Weakness, Numbness Hematologic: Denies: Easy bruising, Easy bleeding Allergy: Denies: Uticaria, Swelling of the mouth Physical Exam Vital Signs/Narrative: Vital Signs Temp Pulse Resp BP Pulse Ox 10/12/19 15:14 97.6 F L 84 16 134/82 H 100 Inital Vital Signs reviewed: Yes General: Well nourished, Well developed, No Acute Distress Head: Normocephalic, Atraumatic Eyes: Perrl, EOMI. Negative for: Pale conjunctiva, Scleral icterus ENT: Moist mucous membranes, No rhinorrhea, TM's clear Neck: Supple, Nontender, No lymphadenopathy, No JVD Cardiovascular: Regular rate, Regular rhythm, No murmurs, Normal S1 Respiratory: No distress, CTA bilaterally, Chest tenderness, - - Patient has pain with deep breathing. There is decreased air movement on the right side.. Negative for: Chest nontender Abdomen: Soft, Nontender, Nondistended, Normal bowel sounds, No masses, Wilson's sign. Negative for: Hepatomegaly, Splenomegaly, Pulsatile mass, Ventral hernia, Inguinal hernia, Umbilical hernia Rectal: Deferred Back: Nontender, Normal Inspection. Negative for: CVA tenderness Extremities: Nontender, No edema, - - There is no asymmetry, swelling, discoloration, leg vein distention, palpable cords or tenderness along the distribution of the deep venous system. Skin: Normal color, No rash Neurological: Alert, Oriented x3, Cranial nerves II-XII grossly intact, Normal Strength, Normal Sensation Psychological: Depressed Diagnostic/Tx/Re-eval Chest X-Ray - ED: 2 View, Read by ED Physician, Normal, Heart, Lungs, Bony Structures, No Acute Disease 10/12/19 15:29 Chest PA and Lateral [RAD] Stat Laboratory Results 10/12/19 10/12/19 15:45 15:45 WBC 6.2 RBC 4.42 Hgb 13.5 Hct 40.5 MCV 91.6 MCH 30.5 MCHC 33.3 RDW Std Deviation 39.4 RDW Coeff of Lee 11.6 Plt Count 252 MPV 9.8 Immature Gran % (Auto) 0.200 Neut % (Auto) 54.5 Lymph % (Auto) 31.2 [place] % (Auto) 11.5 H Eos % (Auto) 1.8 Baso % (Auto) 0.8 Absolute Neuts (auto) 3.4 Absolute Lymphs (auto) 1.93 Nucleated RBC % 0 Sodium 143 Potassium 3.8 Chloride 110 H Carbon Dioxide 24.0 Anion Gap 9 BUN 16 Creatinine 0.77 Estim Creat Clear Calc 74.75 Est GFR (MDRD) Af Amer 108 Est GFR (MDRD) Non-Af 89 BUN/Creatinine Ratio 20.8 H Glucose 93 Calcium 8.6 - EKG Initial EKG Interpretation: Sinus Rhythm - Sinus rhythm ventricular rate 86. MI interval is 160 ms. QS duration 84 ms. QT duration 364 ms. [place] is normal. The EKG is normal. - Medical Decision Making With URI symptoms and cough will obtain chest x-ray to evaluate for pneumonia. Patient is PERC negative. Since chest x-ray is negative. Laboratory tests are unremarkable. Patient was informed she has pleuritic chest pain. She was instructed to take 4 Advil every 8 hours or 2 Aleve every 12 hours. ED Disposition - Plan for ED Patient: Disposition: Home or Assisted Living Diagnosis: Pleurisy without effusion, Acute bronchitis Instructions: Pleurisy Referrals: Roxanne Howell MD [Primary Care Provider] - 1 Week if not improving Additional Instructions: Take 4 Advil every 8 hours or 2 Aleve every 12 hours for the next 3 to 5 days for your chest pain. If no improvement after a week follow-up with your primary care physician.
[2019-10-12] MEDS: Ketorolac 15 MG/ML Vial IV (15:59)
[2019-10-12 16:01] LABS: Absolute Lymphocyte Count 1.93 X10^3/uL (0.83-4.51); Absolute Neutrophil Count 3.4 X10^3/uL (2.0-7.7); Basophil# 0.05 X10^3/uL; Basophil% 0.8 % (0-1); Eosinophil# 0.11 X10^3/uL; Eosinophils% 1.8 % (0-5); Hematocrit 40.5 % (37-47); Hemoglobin 13.5 g/dL (12.0-15.0); Lymphocyte # 1.93 X10^3/ul (4.0); Lymphocyte % 31.2 % (19-41); Mean Corp Hgb Conc 33.3 g/dL (32-36); Mean Corpuscular Hgb 30.5 pg (27.0-32.0); Mean Corpuscular Volume 91.6 fL (81-99); Mean Platelet Vol. 9.8 fl (6.2-12.0); Monocyte# 0.71 X10^3/uL; Monocyte% 11.5 % (0-10); NRBC Flagged by Analyzer 0 % (0-5); Neutrophil # 3.38 X10^3/uL (2.7-7.7); Neutrophil % 54.5 % (47-70); Platelet Count 252 K/mm3 (150-450); RBC Distribution Width CV 11.6 % (11.6-14.6); RBC Distribution Width SD 39.4 fl (35.1-43.9); Red Blood Count 4.42 M/mm3 (4.2-5.4); White Blood Count 6.2 K/mm3 (4.4-11.0)
[2019-10-12 16:13] LABS: Anion Gap 9 (5-15); BUN 16 mg/dL (7-18); BUN/Creat Ratio 20.8 RATIO (10-20); Calcium,Total 8.6 mg/dL (8.5-10.1); Chloride 110 mmol/L (98-107); Creatinine, Serum 0.77 mg/dL (0.55-1.02); EST Glomerular Filtration Rate 89 mL/min (>60); Est Glom Filt Rate - Afr Amer 108 mL/min (>60); Estimated Creatinine Clearance 74.75 ml/min; Glucose 93 mg/dL (74-106); Potassium 3.8 mmol/L (3.5-5.1); Sodium Level 143 mmol/L (136-145)
[2019-10-12 16:21] VITALS: BP 113/79; PULSE 69; RESP 20; O2SAT 98
== END 2019-10-12 16:32 | disposition home or self-care (01) ==
PROVIDERS: Emergency Provider Emergency Medicine; Family Provider Internal Medicine; PCP Internal Medicine
DX: R09.1 Pleurisy (principal); J20.9 Acute bronchitis, unspecified; F31.9 Bipolar disorder, unspecified; F43.10 Post-traumatic stress disorder, unspecified; G80.9 Cerebral palsy, unspecified; K21.9 Gastro-esophageal reflux disease without esophagitis; Z79.899 Other long term (current) drug therapy
CPT/HCPCS: 71046; 80048; 85025; 93005; 96374; 99283

== ENCOUNTER 2019-11-27 17:47 | Emergency (ER) | payer MEDICARE, SELFPAY ==
[2019-11-27 17:48] VITALS: BP 126/80; PULSE 85; RESP 18; TEMP 36.8; O2SAT 98; BMI 24.5
[2019-11-27 19:12] LABS: Anion Gap 7 (5-15); BUN 11 mg/dL (7-18); BUN/Creat Ratio 14.5 RATIO (10-20); Calcium,Total 8.6 mg/dL (8.5-10.1); Chloride 112 mmol/L (98-107); Creatinine, Serum 0.76 mg/dL (0.55-1.02); EST Glomerular Filtration Rate 90 mL/min (>60); Est Glom Filt Rate - Afr Amer 109 mL/min (>60); Estimated Creatinine Clearance 75.74 ml/min; Glucose 97 mg/dL (74-106); Potassium 3.8 mmol/L (3.5-5.1); Sodium Level 142 mmol/L (136-145)
[2019-11-27 19:17] LABS: Absolute Lymphocyte Count 1.92 X10^3/uL (0.83-4.51); Absolute Neutrophil Count 3.7 X10^3/uL (2.0-7.7); Basophil# 0.04 X10^3/uL; Basophil% 0.6 % (0-1); Eosinophil# 0.04 X10^3/uL; Eosinophils% 0.6 % (0-5); Hematocrit 41.2 % (37-47); Hemoglobin 13.7 g/dL (12.0-15.0); Lymphocyte # 1.92 X10^3/ul (4.0); Lymphocyte % 30.8 % (19-41); Mean Corp Hgb Conc 33.3 g/dL (32-36); Mean Corpuscular Hgb 30.9 pg (27.0-32.0); Mean Platelet Vol. 10.5 fl (6.2-12.0); NRBC Flagged by Analyzer 0 % (0-5); Neutrophil # 3.73 X10^3/uL (2.7-7.7); Neutrophil % 59.8 % (47-70); Platelet Count 189 K/mm3 (150-450); RBC Distribution Width CV 11.7 % (11.6-14.6); RBC Distribution Width SD 39.8 fl (35.1-43.9); Red Blood Count 4.43 M/mm3 (4.2-5.4); White Blood Count 6.2 K/mm3 (4.4-11.0)
[2019-11-27 20:08] VITALS: RESP 18
[2019-11-27 20:19] LABS: Alcohol, Blood (Medical)-Serum < 3.0 mg/dL
[2019-11-27 20:21] LABS: Amphetamine Urine VISTA NEGATIVE (<1000 ng/mL); Barbiturate Urine VISTA NEGATIVE (< 200 ng/mL); Benzodiazepine Urine VISTA NEGATIVE (< 200 ng/mL); Cocaine Urine VISTA NEGATIVE (< 300 ng/mL); Ecstacy Urine VISTA NEGATIVE (< 500 ng/mL); Methadone Urine VISTA NEGATIVE (< 300 ng/mL); PCP Urine VISTA NEGATIVE (< 25 ng/mL); THC Urine VISTA POSITIVE (< 50 ng/mL); Vista UDS pH Range 6
[2019-11-27 20:24] LABS: Internal QC Validated? YES +Cl - CLEAR BKGD; Pregnancy, Serum, hCG Quali. NEGATIVE Negative
--- NOTE | 2019-11-27 20:35 | ED.RN ---
PATIENT TOLD THIS NURSE THAT HE COULD NOT REMEMBER THE LAST TIME HE HAS SLEPT. I ASKED IF HE WANTED TO HAVE THE LIGHTS TURNED DOWN OR LET THE DOCTOR KNOW AND HE SAID THAT WON'T WORK.
--- NOTE | 2019-11-27 20:49 | ED.VIS.PSYCH ---
History of Present Illness Chief Complaint: Suicidal Informant: Patient, Significant Other Context: Gradual Onset Associated Symptoms: Depressed, Suicidal Thoughts Specific plan (suicidal thought): Going into traffic to be hit by car Narrative: Patient is a 39-year-old female with history of cerebral palsy, bipolar disorder and PTSD presenting with worsening depression and suicidal ideations. Patient states that she has had worsening suicidal ideations for the past month. She states that she wants to take her power wheelchair into traffic and be hit by a car. She notes that she was having increased external thoughts which I thought was from her Lamictal. She took her self off that for the past 3 to 4 months. She notes she does not currently have a psychiatrist. She spoke to crisis and they recommend she come in the emergency room for evaluation. Patient denies any suicide attempts or taking any overdoses of medications today. Past Medical History - Allergies and Home Meds Allergies/Adverse Reactions: Allergies Coconut Allergy (Verified 11/27/19 17:58) Anaphylaxis coconut oil Allergy (Verified 11/27/19 17:58) Anaphylaxis latex Allergy (Verified 11/27/19 17:58) Rash cyclobenzaprine HCl [From Flexeril] Adverse Reaction (Verified 11/27/19 17:58) gets mean guaifenesin [From Robitussin] Adverse Reaction (Verified 11/27/19 17:58) Other Primary Care Physician: Roxanne Howell MD [Primary Care Provider] - Past Medical History: - - Cerebral Palsy, bipolar disorder, PTSD Surgical History: cholecystectomy, hysterectomy, - - Tubal ligation. Smoking Status: Never smoker - Family History Maternal Family History: Family History (Last Updated 09/30/18 @ 14:42 by NIKOS Harding RN) Other Bipolar disorder Family History: Reports: Diabetes Paternal Family History: Family History (Last Updated 09/30/18 @ 14:42 by NIKOS Harding RN) Other Bipolar disorder Family History: Reports: Heart Disease Review of Systems General: Denies: Chills, Fever, Sweats Eyes: Denies: Visual changes - bilaterally, Diplopia ENT: Denies: Rhinorrhea, Sore throat Cardiovascular: Denies: Chest pain, Palpitations Respiratory: Denies: Dyspnea, Cough, Dyspnea on exertion Gastrointestinal: Denies: Abdominal pain, Nausea, Vomiting, Diarrhea, Melena, Hematochezia Genitourinary: Denies: Dysuria, Hematuria, Frequency Musculoskeletal: Denies: Back pain, Extremity Pain Skin: Denies: Rash, Wounds Neurological: Reports: Weakness. Denies: Headache, Numbness Psych: Reports: Depression, Suicidal thoughts, Suicidal ideations Physical Exam Vital Signs/Narrative: Vital Signs Temp Pulse Resp BP Pulse Ox 11/27/19 20:08 18 11/27/19 17:48 98.2 F 85 18 126/80 H 98 Inital Vital Signs reviewed: Yes General: Well nourished, Well developed Head: Normocephalic, Atraumatic Eyes: Perrl. Negative for: Pale conjunctiva ENT: Moist mucous membranes, No rhinorrhea Neck: Supple, Nontender Cardiovascular: Regular rate, Regular rhythm, No murmurs Respiratory: No distress, CTA bilaterally, Chest nontender Abdomen: Soft, Nontender, Nondistended, Normal bowel sounds Back: Nontender, Normal Inspection Extremities: Nontender, No Edema Skin: Normal color, No rash Neurological: Alert, Oriented x3, - - Chronic extremity weakness secondary to history of cerebral palsy, unchanged. Negative for: Normal Gait Psych: Normal Speech Pattern, Depressed, Irritable, Suicidal thoughts. Negative for: Hallucinations, Delusions Diagnostic/Tx/Re-eval Laboratory Data 11/27/19 11/27/19 11/27/19 18:00 18:51 18:51 WBC 6.2 RBC 4.43 Hgb 13.7 Hct 41.2 MCV 93.0 MCH 30.9 MCHC 33.3 RDW Std Deviation 39.8 RDW Coeff of Lee 11.7 Plt Count 189 MPV 10.5 Immature Gran % (Auto) 0.200 Neut % (Auto) 59.8 Lymph % (Auto) 30.8 [place] % (Auto) 8.0 Eos % (Auto) 0.6 Baso % (Auto) 0.6 Absolute Neuts (auto) 3.7 Absolute Lymphs (auto) 1.92 Nucleated RBC % 0 Sodium 142 Potassium 3.8 Chloride 112 H Carbon Dioxide 23.0 Anion Gap 7 BUN 11 Creatinine 0.76 Estim Creat Clear Calc 75.74 Est GFR (MDRD) Af Amer 109 Est GFR (MDRD) Non-Af 90 BUN/Creatinine Ratio 14.5 Glucose 97 Calcium 8.6 Serum , Qual Urine Opiates Screen NEGATIVE Urine Methadone Screen NEGATIVE Ur Barbiturates Screen NEGATIVE Ur Phencyclidine Scrn NEGATIVE Ur Amphetamines Screen NEGATIVE U Methamphetamin-MDMA NEGATIVE U Benzodiazepines Scrn NEGATIVE Urine Cocaine Screen NEGATIVE U Cannabinoids Screen POSITIVE H Ur Drug Screen Comment Ethyl Alcohol 11/27/19 11/27/19 18:51 18:51 WBC RBC Hgb Hct MCV MCH MCHC RDW Std Deviation RDW Coeff of Lee Plt Count MPV Immature Gran % (Auto) Neut % (Auto) Lymph % (Auto) [place] % (Auto) Eos % (Auto) Baso % (Auto) Absolute Neuts (auto) Absolute Lymphs (auto) Nucleated RBC % Sodium Potassium Chloride Carbon Dioxide Anion Gap BUN Creatinine Estim Creat Clear Calc Est GFR (MDRD) Af Amer Est GFR (MDRD) Non-Af BUN/Creatinine Ratio Glucose Calcium Serum , Qual NEGATIVE Urine Opiates Screen Urine Methadone Screen Ur Barbiturates Screen Ur Phencyclidine Scrn Ur Amphetamines Screen U Methamphetamin-MDMA U Benzodiazepines Scrn Urine Cocaine Screen U Cannabinoids Screen Ur Drug Screen Comment Ethyl Alcohol < 3.0 Restraints applied: No Evaluated for suicidal ideations worsening depression. She has a history of bipolar disorder and is currently off all of her medications. She is medically cleared in the emergency room. I do think she would benefit from inpatient psychiatric evaluation. She is evaluated by crisis. [place] slip is filed and signed. Patient will be signed out pending final disposition. I anticipate admission and transfer to an inpatient psychiatric unit. ED Disposition - Plan for ED Patient: Diagnosis: Bipolar 1 disorder, Depression, Suicidal ideations Referrals: Roxanne Howell MD [Primary Care Provider] -
[2019-11-27 21:56] VITALS: BP 123/89; PULSE 84; RESP 20; O2SAT 100
[2019-11-27 22:05] VITALS: RESP 18
--- NOTE | 2019-11-27 23:00 | ED.RN ---
THIS NURSE ASKED IF THE PATIENT TOOK ANY MEDICATIONS. SHE TOLD ME THAT THE ONLY THING SHE TAKES IS ALBUTERAL INHALER NEEDED.
[2019-11-27 23:03] VITALS: RESP 18
[2019-11-28 01:40] VITALS: RESP 12
[2019-11-28 02:19] VITALS: BP 106/68; PULSE 56; RESP 18; O2SAT 97
[2019-11-28 05:10] VITALS: BP 113/69; PULSE 70; RESP 18; TEMP 36.8; O2SAT 100
--- NOTE | 2019-11-28 06:00 | ED.RN ---
[facility] ACCEPTING THE TRIP. WILL CALL BACK WITH AN ETA
--- NOTE | 2019-11-28 06:05 | ED.RN ---
PT ACCEPTED AT [facility]. DR BATEMAN / [employer]. NURSE TO NURSE [phone] OPTION 1 AFTER 7AM
[2019-11-28 06:55] VITALS: RESP 18
--- NOTE | 2019-11-28 07:00 | ED.RN ---
WHEN THIS NURSE WAS FILLING OUT THE TRANSFER FORM I SAW THAT THE PATIENT HAD SOME MEDICATIONS LISTED ON HER HOME MEDICATIONS LIST.
[2019-11-28 08:38] VITALS: BP 113/76; PULSE 73; RESP 16; O2SAT 95
--- NOTE | 2019-11-28 08:39 | ED.RN ---
Pt awake and alert. Ate most of breakfast and had depends changed per request. She talked of stopping her meds in the past and increasing thoughts of suicidal ideations over the last 2-3 months. She denies a plan or previous hospitalization for same. Hx of CP. Dx with bipolar and depression per pt. We talked of the importance of following up with the counseling center after d/c from [facility]. she verbalized understanding.
--- NOTE | 2019-11-28 11:53 | ED.RN ---
Report to [place] at [facility]
[2019-11-28 12:05] VITALS: BP 113/69; PULSE 70; RESP 18; TEMP 36.8; O2SAT 100
== END 2019-11-28 12:10 ==
PROVIDERS: Emergency Provider Emergency Medicine; Family Provider Internal Medicine; PCP Internal Medicine
DX: F31.9 Bipolar disorder, unspecified (principal); R45.851 Suicidal ideations; F43.10 Post-traumatic stress disorder, unspecified; G80.9 Cerebral palsy, unspecified
CPT/HCPCS: 80048; 80307; 80320; 84703; 85025; 99284; G0480

== ENCOUNTER 2021-10-02 16:59 | Emergency (ER) | payer MEDICARE, MEDICAID, SELFPAY ==
[2021-10-02] VITALS (7 sets, daily range): BP systolic 131–139; BP diastolic 66–99; PULSE 92–100; RESP 14–22; TEMP 36.6; O2SAT 97–100; BMI 24.7
--- NOTE | 2021-10-02 17:35 | EKG12_ITS ---
Test Reason : MENTAL HEALTH Blood Pressure : / mmHG Vent. Rate : 079 BPM Atrial Rate : 079 BPM P-R Int : 152 ms QRS Dur : 080 ms QT Int : 390 ms P-R-T Axes : 060 058 035 degrees QTc Int : 447 ms Normal sinus rhythm Normal ECG Confirmed by FLAVIA ROJSA, ROSA ([id number]), editor managing newspaper NEERU THAPA ([id number]) on 10/06/2021 10:56:04 AM Referred By: REBECA Confirmed By:ROSA ALEJANDRO MD
--- NOTE | 2021-10-02 17:39 | ED.RN ---
PER DR JASMINE, NO SITTER NEEDED AT THE MOMENT
[2021-10-02 18:11] LABS: Absolute Neutrophil Count 4.2 X10^3/uL (2.0-7.7); Basophil# 0.04 X10^3/uL; Basophil% 0.6 % (0-1); Eosinophil# 0.07 X10^3/uL; Hematocrit 43.3 % (37-47); Hemoglobin 14.6 g/dL (12.0-15.0); Lymphocyte % 26.7 % (19-41); Mean Corp Hgb Conc 33.7 g/dL (32-36); Mean Corpuscular Hgb 30.4 pg (27.0-32.0); Mean Platelet Vol. 10.1 fl (6.2-12.0); Monocyte# 0.67 X10^3/uL; Monocyte% 9.9 % (0-10); NRBC Flagged by Analyzer 0 % (0-5); Neutrophil # 4.15 X10^3/uL (2.7-7.7); Neutrophil % 61.5 % (47-70); Platelet Count 209 K/mm3 (150-450); RBC Distribution Width CV 11.4 % (11.6-14.6); RBC Distribution Width SD 37.6 fl (35.1-43.9); Red Blood Count 4.81 M/mm3 (4.2-5.4); White Blood Count 6.8 K/mm3 (4.4-11.0)
[2021-10-02 18:26] LABS: Anion Gap 9 (5-15); BUN 17 mg/dL (7-18); BUN/Creat Ratio 20.2 RATIO (10-20); Calcium,Total 9.2 mg/dL (8.5-10.1); Chloride 107 mmol/L (98-107); Creatinine, Serum 0.84 mg/dL (0.55-1.02); EST Glomerular Filtration Rate 79 mL/min (>60); Est Glom Filt Rate - Afr Amer 96 mL/min (>60); Estimated Creatinine Clearance 67.18 ml/min; Glucose 74 mg/dL (74-106); Potassium 3.3 mmol/L (3.5-5.1); Sodium Level 138 mmol/L (136-145)
--- NOTE | 2021-10-02 18:40 | EX.ED.DYSGE1 ---
HPI History of Present Illness Chief Complaint: Suicidal Narrative Narrative: Patient is a 41-year-old female with past medical history of cerebral palsy. She states that she has been having increased depression recently secondary to problems with her roommates. She states that depression has led to thoughts of suicidal ideation. She states she has had to be admitted to a psychiatric hospital in the past for similar event. She denies any previous suicide attempt. At this time she has a loose plan of trying to harm herself with a kitchen knifes. She reports she recognizes that this behavior is not normal and secondary to this comes to the hospital for evaluation. [facility] Medical History Bipolar 1 disorder Caffeine dependence Cerebral palsy Dependent for wheelchair mobility GERD without esophagitis Neurogenic bladder Post traumatic stress disorder (PTSD) Seasonal allergic rhinitis Home Medications omeprazole 40 mg PO DAILY 01/07/14 [History Last Taken 05/22/18 14:00] albuterol sulfate 2.5 mg INHALATION Q4H PRN PRN 12/04/18 [History Last Taken Unknown] aripiprazole 2 mg PO DAILY 10/02/21 [History Last Taken Unknown] escitalopram oxalate 20 mg PO DAILY 10/02/21 [History Last Taken Unknown] Allergy/AdvReac Type Severity Reaction Status Date / Time Coconut Allergy Anaphylaxis Verified 11/27/19 17:58 coconut oil Allergy Anaphylaxis Verified 11/27/19 17:58 latex Allergy Rash Verified 11/27/19 17:58 cyclobenzaprine HCl AdvReac gets mean Verified 11/27/19 17:58 [From Flexeril] guaifenesin [From Robitussin] AdvReac Other Verified 11/27/19 17:58 Family History (Updated 09/30/18 @ 14:42 by NITA Harding) Other Bipolar disorder Surgical History History of appendectomy History of cholecystectomy History of hysterectomy Social History Smoking Status: Current every day smoker tobacco type: cigarettes ROS ROS ED Constitutional Constitutional ED: Denies chills or fever(s) ENT ENT ED: Denies sore throat Cardiovascular Cardiovascular: Denies chest pain Respiratory/Chest Respiratory/Chest: Denies cough or dyspnea Gastrointestinal Gastrointestinal: Denies abdominal pain, diarrhea, nausea or vomiting Genitourinary Genitourinary ED: Denies dysuria Musculoskeletal Musculoskeletal: Denies myalgias Integumentary Denies rash Neurologic Neurologic: Denies headache(s) Psychiatric Psychiatric: Reports anhedonia, depression, irritability, mood swings, suicidal ideation and suicidal thoughts; Denies homicidal ideation, tactile hallucinations or visual hallucinations Hematologic/Lymphatic Hematologic/Lymphatic: Denies easy bleeding or easy bruising EXAM Physical Exam Const Vital Signs: 10/02/21 17:00 10/02/21 18:00 10/02/21 18:20 Temperature 97.8 F Temperature Source Temporal Pulse Rate 100 Respiratory Rate 22 H 16 14 Blood Pressure 139/99 H Blood Pressure Mean 112 Pulse Ox 100 Oxygen Delivery Method 10/02/21 19:45 10/02/21 21:12 Temperature Temperature Source Pulse Rate 92 Respiratory Rate 14 16 Blood Pressure 131/66 H Blood Pressure Mean 87 Pulse Ox 97 Oxygen Delivery Method Room Air Positive well nourished and well developed General Appearance ED: well developed HEENT Reports moist mucous membranes Eyes PERRL and EOMs intact bilaterally Neck full ROM and supple Resp normal respiratory effort and clear to auscultation bilaterally Cardio regular rate and regular rhythm GI normal to inspection, nondistended, normoactive bowel sounds, soft to palpation, non-tender, non-distended and no masses Auscultation: normoactive bowel sounds Palpation: soft Extremity Extremity Narrative: Patient has chronic changes to her arms and legs secondary to cerebral palsy but no new/acute findings Neuro oriented x3 and CN's II-XII intact bilaterally Sensorium / Orientation: alert Psych Psych Narrative: Patient has a flat/depressed affect with suicidal ideation Skin no rashes or lesions noted MDM MDM MDM Narrative Medical decision making narrative: Patient presented to the ER in no acute distress and afebrile. She reported worsening suicidal ideation and had a loose plan as she was going to cut herself with a kitchen knife. She stated that the main stressor in her life are her roommates. At this time I do not feel safe for her to return home as she would be returning to the main stressors leading to her worsening suicidal ideation. Therefore medical clearance exam and work-up was obtained. Work-up revealed positive marijuana which patient does admit to but also showed amphetamines. Therefore at this time a CPK will be added. CPK slightly elevated at 561 but this is not clinically significant. Therefore as the remainder of her work-up reveals no clinically significant findings the patient is medically cleared for transfer/placement in a psychiatric facility Lab Data Attestation: I reviewed the patient's lab results. Labs: Laboratory Results - last 24 hr 10/02/21 10/02/21 10/02/21 17:50 17:50 17:50 WBC 6.8 RBC 4.81 Hgb 14.6 Hct 43.3 MCV 90.0 MCH 30.4 MCHC 33.7 RDW Std Deviation 37.6 RDW Coeff of Lee 11.4 L Plt Count 209 MPV 10.1 Immature Gran % (Auto) 0.300 Neut % (Auto) 61.5 Lymph % (Auto) 26.7 [place] % (Auto) 9.9 Eos % (Auto) 1.0 Baso % (Auto) 0.6 Absolute Neuts (auto) 4.2 Absolute Lymphs (auto) 1.80 Nucleated RBC % 0 Sodium 138 Potassium 3.3 L Chloride 107 Carbon Dioxide 22.0 Anion Gap 9 BUN 17 Creatinine 0.84 Estim Creat Clear Calc 67.18 Est GFR (MDRD) Af Amer 96 Est GFR (MDRD) Non-Af 79 BUN/Creatinine Ratio 20.2 H Glucose 74 Calcium 9.2 Total Creatine Kinase Urine Color Urine Clarity Urine pH Ur Specific [place] Urine Protein Urine Glucose (UA) Urine Ketones Urine Occult Blood Urine Nitrite Urine Bilirubin Urine Urobilinogen Ur Leukocyte Esterase Urine RBC Urine WBC Ur Squamous Epith Cells Urine Bacteria Urine Mucus Urine Test Salicylates < 1.7 L Urine Opiates Screen Urine Methadone Screen Acetaminophen < 2.0 L Ur Barbiturates Screen Ur Phencyclidine Scrn Ur Amphetamines Screen U Methamphetamin-MDMA U Benzodiazepines Scrn Urine Cocaine Screen U Cannabinoids Screen Ur Drug Screen Comment Ethyl Alcohol 7.0 10/02/21 10/02/21 10/02/21 17:50 18:40 18:40 WBC RBC Hgb Hct MCV MCH MCHC RDW Std Deviation RDW Coeff of Lee Plt Count MPV Immature Gran % (Auto) Neut % (Auto) Lymph % (Auto) [place] % (Auto) Eos % (Auto) Baso % (Auto) Absolute Neuts (auto) Absolute Lymphs (auto) Nucleated RBC % Sodium Potassium Chloride Carbon Dioxide Anion Gap BUN Creatinine Estim Creat Clear Calc Est GFR (MDRD) Af Amer Est GFR (MDRD) Non-Af BUN/Creatinine Ratio Glucose Calcium Total Creatine Kinase 561 H Urine Color Yellow Urine Clarity Clear Urine pH 5.0 Ur Specific [place] 1.025 Urine Protein 30 H Urine Glucose (UA) Normal Urine Ketones 150 A* Urine Occult Blood 50 H Urine Nitrite Negative Urine Bilirubin 1 H Urine Urobilinogen 4 H Ur Leukocyte Esterase 25 H Urine RBC 0-5 SEEN Urine WBC 0 SEEN Ur Squamous Epith Cells 0-5 SEEN Urine Bacteria 0 SEEN Urine Mucus 0 SEEN Urine Test Negative Salicylates Urine Opiates Screen NEGATIVE Urine Methadone Screen NEGATIVE Acetaminophen Ur Barbiturates Screen NEGATIVE Ur Phencyclidine Scrn NEGATIVE Ur Amphetamines Screen POSITIVE H U Methamphetamin-MDMA NEGATIVE U Benzodiazepines Scrn NEGATIVE Urine Cocaine Screen NEGATIVE U Cannabinoids Screen POSITIVE H Ur Drug Screen Comment Ethyl Alcohol Discharge Plan Triage Chief Complaint: Suicidal ED Provider: Edwin Malin Dx/Rx/DC Orders Clinical Impression: Depression with suicidal ideation Prescriptions: No Action omeprazole 20 MG capsule 40 mg PO DAILY RF: 0 albuterol sulfate 2.5 MG/3 ML solution for nebulization 2.5 mg inhalation Q4H PRN PRN (Reason: Sob &/Or Wheezing) RF: 0 escitalopram oxalate 20 mg Tablet 20 mg PO DAILY RF: 0 aripiprazole 2 mg Tablet 2 mg PO DAILY RF: 0 Primary Care Provider: Roxanne Howell Referrals: Roxanne Howell MD [Primary Care Provider] - Disposition Disposition: Psychiatric Hospital or Unit Discharge Location: [facility]
[2021-10-02 18:43] LABS: Acetaminophen (Tylenol) Level < 2.0 ug/mL (10.0-30.0); Salicylate < 1.7 mg/dL (2.8-20.0)
[2021-10-02 18:50] LABS: Bacteria 0 SEEN /hpf (None Seen); Mucous, Urine 0 SEEN /hpf (<or=2+); White Blood Cells 0 SEEN /hpf (0-5)
--- NOTE | 2021-10-02 18:54 | ED.RN ---
PT STATES SHE HAS NOT TAKEN HER MEDS, INCLUDING PSYCHIATRIC MEDS, FOR 6MONTHS BECAUSE SHE DOESN'T LIKE HOW THEY MAKE HER FEEL
[2021-10-02 18:57] LABS: Color, Urine Yellow (Yellow); Glucose, Dipstick Normal (Normal); Leukocyte Esterase-Dipstick 25 /ul (Negative); Nitrite-Dipstick Negative (Negative); Occult Blood-Urine 50 /ul (Negative); Protein-Dipstick 30 mg/dl (Negative); Specific Gravity, Urine 1.025 (1.002-1.030); Urine Clarity Clear (Clear); Urine Urobilinogen 4 mg/dl (Normal)
[2021-10-02 18:59] LABS: Urine Bilirubin Dipstick 1 mg/dL (Negative)
[2021-10-02 19:00] LABS: Ketone-Dipstick 150 mg/dl (Negative)
[2021-10-02 19:04] LABS: Squamous Epithelial Cells - UA 0-5 SEEN /hpf (5-10)
[2021-10-02 19:05] LABS: Internal QC Validated? YES +Cl - CLEAR BKGD; Pregnancy, Urine Negative Negative; Red Blood Cells-Urine 0-5 SEEN /hpf (0-5)
[2021-10-02 19:11] LABS: Amphetamine Urine VISTA POSITIVE (<1000 ng/mL); Barbiturate Urine VISTA NEGATIVE (< 200 ng/mL); Benzodiazepine Urine VISTA NEGATIVE (< 200 ng/mL); Cocaine Urine VISTA NEGATIVE (< 300 ng/mL); Ecstacy Urine VISTA NEGATIVE (< 500 ng/mL); Methadone Urine VISTA NEGATIVE (< 300 ng/mL); PCP Urine VISTA NEGATIVE (< 25 ng/mL); THC Urine VISTA POSITIVE (< 50 ng/mL); Vista UDS pH Range 5
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
--- NOTE | 2021-10-02 20:48 | CM.ED ---
JESSE Note JESSE called [facility]. They have beds. JESSE made referral to [facility]. Ana Laura DENG
[2021-10-02 21:57] LABS: CPK Total, Creatine Kinase 561 U/L (26-192)
--- NOTE | 2021-10-02 22:07 | CM.ED ---
JESSE faxed EKG, CK levels, Urine and Preg Screen to [facility]. JESSE called Tia and she said they received the information. THey will review with provider. Plan: Inpatient Hospitalization Ana Laura DENG
--- NOTE | 2021-10-02 22:57 | NURSING ---
[facility] CALLED STATING THEY ACCEPTED THE PATIENT BUT FIRST NEEDED THE PINK SLIP AND RECORD OF PT BEING MEDICALLY CLEARED FAXED OVER.
[2021-10-03] VITALS (16 sets, daily range): BP systolic 106–113; BP diastolic 58–86; PULSE 68–90; RESP 14–17; O2SAT 97–99
--- NOTE | 2021-10-03 02:38 | ED.RN ---
RN ATTEMPTED TO CALL REPORT TO [facility] STATES THEY ARE NOT EQUIPPED TO TAKE PATIENT SO NOW PATIENT IS DENIED.
--- NOTE | 2021-10-03 02:50 | ED.RN ---
crisis paged to see patient at this time since patient was denied at [facility]
--- NOTE | 2021-10-03 03:12 | ED.RN ---
chart faxed to crisis at this time for placement
--- NOTE | 2021-10-03 04:19 | ED.RN ---
patient has been denied at [facility]
[2021-10-03] MEDS: Pantoprazole Sodium 40 MG Tablet PO (08:28)
[2021-10-03] MEDS: ARIPiprazole 2 MG Tablet PO (08:28)
[2021-10-03] MEDS: Escitalopram Oxalate 20 MG Tablet PO (08:28)
--- NOTE | 2021-10-03 08:46 | NURSING ---
SPOKE TO NEGAR WITH CRISIS; SHE STATED THAT EVERYWHERE IS DECLINING. THE ONE PLACE THAT WOULD ACCEPT HER IS [facility] AND THEY WILL NOT TAKE HER DUE TO HX OF PT FILING A COMPLAINT WITH FACILITY RESULTING IN [place]. THEY ARE GOING TO MAKE A REFERRAL TO [facility] AND WILL KEEP US UPDATED ON STATUS.
--- NOTE | 2021-10-03 11:54 | CM.ED ---
Addendum entered by Sheron Powers 10/03/21 12:19: Patient declined at [facility]. Original Note: SOCIAL WORK Spoke with Crisis, Rm has declined referral. Referral called and faxed to Nafisa with [facility]. Pending review at this time. Fernando Powers, LEGAL SUPPORT ASSISTANT, COLLECTION ADMINISTRATOR
--- NOTE | 2021-10-03 12:28 | CM.ED ---
Addendum entered by Sheron Powers 10/03/21 14:52: Patient denied by [facility]. Addendum entered by Sheron Powers 10/03/21 12:38: Referral called and faxed to [facility]. Pending review. Original Note: SOCIAL WORK Call to [facility], intake reports beds available and will review referral. Referral faxed at this time. Fernando Powers, SUPERINTENDENT [employer], FURNITURE REPAIRER
--- NOTE | 2021-10-03 15:40 | CM.ED ---
Call to [facility], spoke with Aretha Kilpatrick's nurse, Iram. Per Iram, patient was last seen in office on 09/09/21. Patient had no complaints and medications were refilled through [facility]. Iram states patient's follow up's were scheduled for 9 months. Call to [facility], who reports prescriptions were filled for patient. It should be noted that patient reports has not been taking medications for 6 months. Call to Crisis to update and requests patient's chart be noted. Feranndo Powers, SHODER FILLER, SIXTH GRADE TEACHER
--- NOTE | 2021-10-03 15:55 | CM.ED ---
Addendum entered by Sheron Powers 10/03/21 17:03: Patient declined by [facility] due to medical acuity. Staff updated. Original Note: SOCIAL WORK Call to [facility] to check on status of referral, intake speaking with physician and will call this worker back. Fernando Powers, USPS LETTER CARRIER, ECONOMIC DEVELOPMENT SPECIALIST
--- NOTE | 2021-10-03 18:31 | CM.ED ---
Addendum entered by Sheron Powers 10/03/21 18:48: This worker to complete follow up calls with patient this evening and tomorrow, 10/04/21. Crisis to begin calling patient on 10/05/21. Original Note: SOCIAL WORK Patient has been denied at multiple facilities due to medical acuity and not meeting criteria. Facilities have recommended outpatient services. Discussed with Dr. Gee, patient to be re-assessed for placement as patient has been her for over 24 hours. This worker met with patient in room. Patient states not really feeling suicidal. Patient reports got upset because roommates didn't believe me. Patient states I would not harm myself. Patient states has been not telling the truth to Aretha Kilpatrick. Patient states did not tell SOAPING MACHINE BACK TENDER that she had not been taking medications. Patient states today was the first day she has taken prescribed psych medications in 6 months. Patient believes does not need the medication. Patient feels safe returning home and completed safety plan with this worker. Discussed follow up. Patient agrees to follow up calls by Crisis and this worker. Patient to continue outpatient care through [facility] and Psych Services. Dr. Gee updated on the above. Copy of safety plan added to chart. Plan: Home with safety plan and follow up. Fernando Powers, NEON TUBE PUMPER, SITE DAMAGE PREVENTION TECHNICIAN
--- NOTE | 2021-10-03 19:40 | CM.ED ---
SOCIAL WORK Call to [id number] Dispatch reports no agency available to complete transport this evening. Tow Motor Mechanic has attempted to contact transport providers. All unable to accommodate wheelchair transport this evening. Call to [facility], wheelchair transport scheduled as high priority for picker and packer at 10:30a. Staff dino. WILLIE Gaming, ALIGNER
[2021-10-04] VITALS (11 sets, daily range): BP systolic 103–108; BP diastolic 69–72; PULSE 61–64; RESP 14–18; O2SAT 97–98
--- NOTE | 2021-10-04 11:15 | ED.RN ---
CALLED PHARMACY ABOUT MORNING MEDS-STILL DO NOT HAVE IN ER. [facility] CALLED STATING THEY WILL NOT BE HERE UNTIL 1212:30 NOW. PT MADE AWARE WAITING FOR [facility].
[2021-10-04] MEDS: Escitalopram Oxalate 20 MG Tablet PO (12:03)
[2021-10-04] MEDS: ARIPiprazole 2 MG Tablet PO (12:03)
[2021-10-04] MEDS: Pantoprazole Sodium 40 MG Tablet PO (12:03)
== END 2021-10-04 13:30 | disposition home or self-care (01) ==
PROVIDERS: Emergency Provider Emergency Medicine; PCP Internal Medicine
DX: R45.851 Suicidal ideations (principal); F31.9 Bipolar disorder, unspecified; G80.9 Cerebral palsy, unspecified; K21.9 Gastro-esophageal reflux disease without esophagitis; F17.210 Nicotine dependence, cigarettes, uncomplicated; Z79.899 Other long term (current) drug therapy
CPT/HCPCS: 80048; 80307; 80329; 81001; 81025; 82077; 82550; 85025; 87426; 93005; 99285; J7030; G0480

== ENCOUNTER 2023-06-01 20:44 | Emergency (ER) | payer MEDICARE, MEDICAID, SELFPAY ==
[2023-06-01 20:46] VITALS: BP 136/77; PULSE 83; RESP 16; TEMP 36.3; O2SAT 100; BMI 20.2
--- NOTE | 2023-06-01 22:12 | RAD_ITS ---
EXAM: XR RIGHT FOOT COMPLETE, 3 OR MORE VIEWS CLINICAL INDICATION: pain TECHNIQUE: Frontal, lateral and oblique views of the right foot. COMPARISON: No relevant prior studies available. FINDINGS: BONES/JOINTS: Bones are diffusely osteopenic. Mild hallux valgus deformity. No acute fracture. Preservation of the joint space. No sclerotic or destructive changes observed. SOFT TISSUES: Unremarkable. No soft tissue swelling or gas. No radiopaque foreign body. RAD/Foot min 3 Views IMPRESSION: 1. Bones are diffusely osteopenic. 2. Mild hallux valgus deformity. Electronically Signed: Sung Domínguez MD at 0:01 EDT ,
--- NOTE | 2023-06-01 22:13 | RAD_ITS ---
EXAM: XR LEFT FOOT COMPLETE, 3 OR MORE VIEWS CLINICAL INDICATION: pain TECHNIQUE: Frontal, lateral and oblique views of the left foot. COMPARISON: No relevant prior studies available. FINDINGS: BONES/JOINTS: The bones are diffusely osteopenic. Mild hallux valgus deformity. No acute fracture. Preservation of the joint space. No sclerotic or destructive changes observed. SOFT TISSUES: Unremarkable. No soft tissue swelling or gas. No radiopaque foreign body. RAD/Foot min 3 Views IMPRESSION: 1. The bones are diffusely osteopenic. 2. Mild hallux valgus deformity. 3. No acute abnormality. Electronically Signed: Sung Domínguez MD at 23:35 EDT ,
[2023-06-01] MEDS: Morphine 4 MG/ML Syringe IV (22:59)
[2023-06-01] MEDS: Ondansetron 4 MG/2 ML Vial IV (22:59)
[2023-06-01 23:09] LABS: Absolute Lymphocyte Count 1.85 X10^3/uL (0.83-4.51); Absolute Neutrophil Count 2.6 X10^3/uL (2.0-7.7); Basophil# 0.03 X10^3/uL; Basophil% 0.6 % (0-1); Eosinophil# 0.08 X10^3/uL; Eosinophils% 1.5 % (0-5); Hematocrit 38.4 % (37-47); Hemoglobin 12.9 g/dL (12.0-15.0); Lymphocyte # 1.85 X10^3/ul (0.83-4.51); Lymphocyte % 35.6 % (19-41); Mean Corp Hgb Conc 33.6 g/dL (32-36); Mean Corpuscular Hgb 31.8 pg (27.0-32.0); Mean Corpuscular Volume 94.6 fL (81-99); Mean Platelet Vol. 9.1 fl (6.2-12.0); Monocyte# 0.63 X10^3/uL; Monocyte% 12.1 % (0-10); NRBC Flagged by Analyzer 0 % (0-5); Neutrophil # 2.58 X10^3/uL (2.7-7.7); Neutrophil % 49.8 % (47-70); Platelet Count 239 K/mm3 (150-450); RBC Distribution Width SD 44.6 fl (35.1-43.9); Red Blood Count 4.06 M/mm3 (4.2-5.4); White Blood Count 5.2 K/mm3 (4.4-11.0)
[2023-06-01 23:16] LABS: Erythrocyte Sedimentation Rate 2 mm/hr (0-30)
--- NOTE | 2023-06-01 23:18 | ED.VIS.LOWEX ---
HPI History of Present Illness Chief Complaint: Other, Pain/Inj Narrative Narrative: 43-year-old female presenting with bilateral foot pain which she had for about 6 weeks. She has a history of CP and states that she does not ambulate but she does stand to pivot. She notes that now every time she pivots she has 10 of 10 foot pain. She denies any known trauma. Patient states that she does not have any numbness. She states that her feet were initially swollen and she was using Epsom salts to decrease the swelling successfully however this the swelling has returned. She has not been able to see her primary care provider because she states her primary doctor will see her again till she gets an ID stating who she has. She states is a new office policy. Patient states her doctor is Dr. Howell and she has seen her for years. Patient states he does not have anybody who can get her to the [facility] to get her an ID so she does have anybody to follow-up with. She notes that there is some redness on the dorsum of the feet. She states this has been there and is not new. No fevers or chills. No nausea or vomiting. [facility] Medical History Bipolar 1 disorder Caffeine dependence Cerebral palsy Dependent for wheelchair mobility GERD without esophagitis Neurogenic bladder Post traumatic stress disorder (PTSD) Seasonal allergic rhinitis Home Medications omeprazole 20 mg capsule,delayed release 40 mg PO DAILY stomach 01/07/14 [History Last Taken 05/22/18 14:00] albuterol sulfate 2.5 mg/3 mL (0.083 %) solution for nebulization 2.5 mg inhalation Q4H PRN PRN Sob &/Or Wheezing 12/04/18 [History Last Taken Unknown] aripiprazole 2 mg tablet 2 mg PO DAILY 10/02/21 [History Last Taken Unknown] escitalopram oxalate 20 mg tablet 20 mg PO DAILY 10/02/21 [History Last Taken Unknown] aripiprazole 5 mg tablet (Abilify) 5 mg PO QHS #30 tabs 10/03/21 [Rx Last Taken Unknown] escitalopram oxalate 20 mg tablet (Lexapro) 20 mg PO DAILY #30 tabs 10/03/21 [Rx Last Taken Unknown] naproxen 500 mg tablet (Naprosyn) 500 mg PO BID PRN pain #30 tabs 06/01/23 [Rx Last Taken Unknown] tramadol 50 mg tablet 50 mg PO Q8H PRN pain 3 days #12 tabs 06/01/23 [Rx Last Taken Unknown] Allergy/AdvReac Type Severity Reaction Status Date / Time Coconut Allergy Anaphylaxis Verified 06/01/23 20:46 coconut oil Allergy Anaphylaxis Verified 06/01/23 20:46 latex Allergy Rash Verified 06/01/23 20:46 cyclobenzaprine HCl AdvReac gets mean Verified 06/01/23 20:46 [From Flexeril] guaifenesin [From Robitussin] AdvReac Other Verified 06/01/23 20:46 Family History Other Bipolar disorder Surgical History History of appendectomy History of cholecystectomy History of hysterectomy Social History Smoking Status: Current every day smoker tobacco type: cigarettes ROS ROS ED Constitutional Constitutional ED: Denies chills, fever(s) or sweats Eyes Eyes: Denies blurry vision or change in vision ENT ENT ED: Denies ear pain or sore throat Cardiovascular Cardiovascular: Denies chest pain, palpitations or racing heartbeat Respiratory/Chest Respiratory/Chest: Denies cough, dyspnea or sputum Gastrointestinal Gastrointestinal: Denies abdominal pain, constipation, diarrhea, nausea or vomiting Genitourinary Genitourinary ED: Denies dysuria, hematuria or urinary frequency Musculoskeletal Musculoskeletal: Reports other Details: Bilateral foot pain ; Denies arthralgias, myalgias or neck pain Integumentary Reports rash; Denies abscess or Abrasions Neurologic Neurologic: Denies headache(s), paresthesias or weakness Psychiatric Psychiatric: Denies anxiety, depression, suicidal ideation or suicidal thoughts Endocrine Endocrinology: Denies polydipsia or polyuria EXAM Physical Exam Const Vital Signs: 06/01/23 20:46 Temperature 97.4 F L Temperature Source Temporal Pulse Rate 83 Respiratory Rate 16 Blood Pressure 136/77 H Blood Pressure Mean 96 Pulse Ox 100 Oxygen Delivery Method Room Air Positive well nourished General Appearance ED: NAD HEENT Reports moist mucous membranes normocephalic Resp normal respiratory effort and no retractions Auscultation: Negative for rales, rhonchi or wheezes Cardio regular rate and regular rhythm GI non-tender Extremity Extremity Narrative: Tenderness to palpation diffusely over the bilateral feet. No crepitance. There is some redness on the dorsum of the left foot and the lateral aspect of the right foot. Both feet are neurovascular intact with brisk cap refill to all 5 toes. No lymphangitic streaking. Neuro oriented x3 and CN's II-XII intact bilaterally Sensorium / Orientation: alert Motor Exam: strength 5/5 throughout Psych mental status grossly normal MDM MDM MDM Narrative Medical decision making narrative: Patient presented with bilateral foot pain. She states he had this for weeks. She is not been able to see anybody because she does not have an ID and she cannot see her primary doctor because of this. Patient states she does have health insurance however. She does not have a way to get to the [facility] to get an ID so she can get medical therapy. She came today by EMS. Denies any systemic signs or symptoms. She states he has pain when she transfers and standing. We will obtain a CBC and BMP as well as an ESR and CRP to rule out infectious etiology. X-rays of bilateral feet will be obtained as well. Patient medicated with morphine and Zofran. CBC shows normal white blood cell count of 5.2. Hemoglobin are stable. Platelets are normal. CRP and ESR are normal. Renal function electrolytes unremarkable with exception of potassium 3.1 which was repleted orally. X-rays of the bilateral feet on my interpretation show no acute fractures, subluxation, evidence of osteomyelitis. Radiology interprets this and agrees. At this point I will give the patient Naprosyn for pain and Ultram for breakthrough pain if she needs it. She given follow-up with podiatry. She is also recommended to follow-up with Dr. Howell to see if they can aid in her follow-up process. Return precautions are discussed. Impression: 1. Dermatitis 2. Bilateral foot pain Lab Data Attestation: I reviewed the patient's lab results. Labs: Laboratory Results - last 24 hr 06/01/23 23:10 WBC 5.2 RBC 4.06 L Hgb 12.9 Hct 38.4 MCV 94.6 MCH 31.8 MCHC 33.6 RDW Std Deviation 44.6 H RDW Coeff of Lee 13.0 Plt Count 239 MPV 9.1 Immature Gran % (Auto) 0.400 Neut % (Auto) 49.8 Lymph % (Auto) 35.6 [place] % (Auto) 12.1 H Eos % (Auto) 1.5 Baso % (Auto) 0.6 Absolute Neuts (auto) 2.6 Absolute Lymphs (auto) 1.85 Nucleated RBC % 0 ESR 2 Sodium 143 Potassium 3.1 L Chloride 113 H Carbon Dioxide 29.0 Anion Gap 1 L BUN 14 Creatinine 0.72 Estim Creat Clear Calc 76.81 Est GFR (MDRD) Af Amer 114 Est GFR (MDRD) Non-Af 94 BUN/Creatinine Ratio 19.4 Glucose 79 Calcium 8.5 C-React Prot Ext Range < 2.90 Radiography Diagnostic Testing: Clinical Impression(s) from Imaging Studies Foot X-Ray 06/01/23 22:12 IMPRESSION: 1. Bones are diffusely osteopenic. 2. Mild hallux valgus deformity. Electronically Signed: Sung Domínguez MD at 0:01 EDT , Foot X-Ray 06/01/23 22:13 IMPRESSION: 1. The bones are diffusely osteopenic. 2. Mild hallux valgus deformity. 3. No acute abnormality. Electronically Signed: Sung Domínguez MD at 23:35 EDT , Discharge Plan Triage Chief Complaint: Other, Pain/Inj ED Provider: Porter Godinez Dx/Rx/DC Orders Instructions: ED Erythema Prescriptions: New tramadol 50 mg tablet 50 mg PO Q8H PRN (Reason: pain) 3 Days Qty: 12 0RF naproxen [Naprosyn] 500 mg tablet 500 mg PO BID PRN (Reason: pain) Qty: 30 0RF No Action omeprazole 20 MG capsule 40 mg PO DAILY Patient Comments: acid reflux albuterol sulfate 2.5 MG/3 ML solution for nebulization 2.5 mg inhalation Q4H PRN PRN (Reason: Sob &/Or Wheezing) escitalopram oxalate 20 mg Tablet 20 mg PO DAILY Rx Instructions: pt states she has not taken in 6mo aripiprazole 2 mg Tablet 2 mg PO DAILY escitalopram oxalate [Lexapro] 20 mg tablet 20 mg PO DAILY Qty: 30 0RF Hold Instructions: per patient request aripiprazole [Abilify] 5 mg tablet 5 mg PO QHS Qty: 30 0RF Primary Care Provider: Roxanne Howell Referrals: Rinku Pope DPM [Med Staff - Active Staff] - 3-5 Days Roxanne Howell MD [Primary Care Provider] - Disposition Disposition: Home, Self Care
[2023-06-01 23:39] LABS: Anion Gap 1 (5-15); BUN 14 mg/dL (7-18); BUN/Creat Ratio 19.4 RATIO (10-20); CRP < 2.90 mg/L (0.0-3.0); Calcium,Total 8.5 mg/dL (8.5-10.1); Chloride 113 mmol/L (98-107); Creatinine, Serum 0.72 mg/dL (0.55-1.02); EST Glomerular Filtration Rate 94 mL/min (>60); Est Glom Filt Rate - Afr Amer 114 mL/min (>60); Estimated Creatinine Clearance 76.81 ml/min; Glucose 79 mg/dL (74-106); Potassium 3.1 mmol/L (3.5-5.1); Sodium Level 143 mmol/L (136-145)
[2023-06-02 00:45] VITALS: BP 122/64; PULSE 67; RESP 18
== END 2023-06-02 01:38 | disposition home or self-care (01) ==
PROVIDERS: Emergency Provider Student in an Organized Health Care Education/Training Program; PCP Internal Medicine; Visit Provider Student in an Organized Health Care Education/Training Program
DX: L30.9 Dermatitis, unspecified (principal); M79.671 Pain in right foot; F17.210 Nicotine dependence, cigarettes, uncomplicated; M79.672 Pain in left foot
CPT/HCPCS: 73630; 80048; 85025; 85652; 86140; 96374; 96375; 99284; A4216; J2405

== ENCOUNTER 2024-03-28 09:03 | Inpatient (IN) | payer MEDICARE, MEDICAID, SELFPAY ==
[2024-03-28 09:05] VITALS: BP 127/95; PULSE 104; RESP 16; TEMP 36.3; O2SAT 100; BMI 20.1
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
--- NOTE | 2024-03-28 09:52 | RAD_ITS ---
STUDY: X-RAY - LEFT FOOT CLINICAL: Female, 44 years old. Pain redness TECHNIQUE: 2 view(s) of the foot. COMPARISON: Comparison is made with prior study dated June 01, 2023. FINDINGS: Normal talus, calcaneus, and tarsal bones. Normal visualized subtalar, talonavicular, calcaneocuboid, tarsal and tarsometatarsal articulations. There is demineralization of the metatarsi. There is mild degenerative arthrosis of the metatarsophalangeal joint of the hallux with a hallux valgus deformity. Normal tibial and fibular sesamoid bones. Normal interphalangeal joint of the great toe. Normal phalanges of the great toe. Normal second through fifth metatarsophalangeal joints. Normal interphalangeal joints and phalanges of the lesser toes. There is no demonstrated soft tissue swelling. RAD/Foot 2 Views IMPRESSION: Soft tissue swelling. Electronically Signed: Andrei Nielson MD at 12:01 EDT ,
--- NOTE | 2024-03-28 09:52 | CT_ITS ---
STUDY: CT BRAIN WITHOUT CONTRAST REASON FOR EXAM: Female, 44 years old. Confusion RADIATION DOSAGE (If Supplied By Facility): CTDIvol = ( 44.99 ) mGy, DLP = ( 812.98 ) mGycm TECHNIQUE: Transaxial CT imaging of the brain was performed without administration of intravenous contrast material. Individualized dose optimization techniques were used for this CT. COMPARISON: No relevant priors. FINDINGS: Normal soft tissue structures. Normal calvarium. There is mild cerebral atrophy with widening of the extra-axial spaces and ventricular dilatation. There are areas of decreased attenuation within the white matter tracts of the supratentorial brain, consistent with microvascular disease changes. 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 Normal basal ganglia and thalami. Normal brainstem. Normal cerebellum. There is no intracranial hemorrhage. There are no findings of an acute ischemic infarction. Normal visualized paranasal sinuses. CT/Brain/Head without Contrast IMPRESSION: Chronic involutional changes of the brain. Absence of the corpus callosum. Electronically Signed: Andrei Nielson MD at 11:09 EDT ,
--- NOTE | 2024-03-28 09:52 | EKG12_ITS ---
Test Reason : Blood Pressure : / mmHG Vent. Rate : 091 BPM Atrial Rate : 091 BPM P-R Int : 188 ms QRS Dur : 074 ms QT Int : 378 ms P-R-T Axes : 072 043 047 degrees QTc Int : 464 ms Normal sinus rhythm Nonspecific ST abnormality Abnormal ECG Confirmed by MIRA ROJAS, DYLAN ([id number]), graphics editor NEERU THAPA ([id number]) on 03/30/2024 11:38:21 AM Referred By: Confirmed By:DYLAN MEYERS MD
[2024-03-28] MEDS: 0.9% Normal Saline (1000mL) 1,000 ML 999 ML IV (10:16)
--- NOTE | 2024-03-28 10:40 | RAD_ITS ---
STUDY: X-RAY CHEST REASON FOR EXAM: Female, 44 years old. Confusion TECHNIQUE: Single AP portable view of the chest. COMPARISON: Comparison is made with prior study dated October 12, 2019. FINDINGS: EKG electrodes are seen. The lungs are clear and expanded. There is no demonstrated pleural abnormality. Normal size heart. Normal mediastinum and jacqueline. Normal visualized pulmonary arteries. Normal visualized aortic arch and descending thoracic aorta. There are degenerative changes of the visualized thoracic spine. Normal visualized ribs, clavicles, and shoulders. There is no demonstrated abnormality of the visualized soft tissue structures of the upper abdomen. RAD/Chest 1 View (Portable) IMPRESSION: Normal x-ray examination of the chest. Electronically Signed: Andrei Nielson MD at 12:02 EDT ,
[2024-03-28 10:47] LABS: Erythrocyte Sedimentation Rate 4 mm/hr (0-30)
[2024-03-28 10:49] LABS: Absolute Neutrophil Count 7.1 X10^3/uL (2.0-7.7); Basophil# 0.03 X10^3/uL; Basophil% 0.3 % (0-1); Eosinophil# 0.03 X10^3/uL; Eosinophils% 0.3 % (0-5); Hematocrit 44.9 % (37-47); Mean Corp Hgb Conc 33.4 g/dL (32-36); Mean Corpuscular Hgb 30.2 pg (27.0-32.0); Mean Corpuscular Volume 90.5 fL (81-99); Mean Platelet Vol. 10.1 fl (6.2-12.0); Monocyte# 0.92 X10^3/uL; Monocyte% 10.1 % (0-10); NRBC Flagged by Analyzer 0 % (0-5); Neutrophil # 7.08 X10^3/uL (2.7-7.7); Neutrophil % 77.9 % (47-70); Platelet Count 276 K/mm3 (150-450); RBC Distribution Width CV 12.4 % (11.6-14.6); RBC Distribution Width SD 40.2 fl (35.1-43.9); Red Blood Count 4.96 M/mm3 (4.2-5.4); White Blood Count 9.1 K/mm3 (4.4-11.0)
[2024-03-28 10:51] LABS: Color, Urine Yellow (Yellow); Glucose, Dipstick Normal (Normal); Ketone-Dipstick 5 mg/dl (Negative); Leukocyte Esterase-Dipstick 100 /ul (Negative); Nitrite-Dipstick Positive (Negative); Occult Blood-Urine 10 /ul (Negative); Protein-Dipstick 30 mg/dl (Negative); Specific Gravity, Urine 1.025 (1.002-1.030); Urine Clarity Cloudy (Clear); Urine Urobilinogen 4 mg/dl (Normal)
--- NOTE | 2024-03-28 10:51 | RAD_ITS ---
STUDY: X-RAY - RIGHT FOOT CLINICAL: Female, 44 years old. Pain redness TECHNIQUE: 2 view(s) of the foot. COMPARISON: Comparison is made with prior study June 01, 2023. FINDINGS: Normal talus, calcaneus, and tarsal bones. Normal visualized subtalar, talonavicular, calcaneocuboid, tarsal and tarsometatarsal articulations. There is demineralization of the metatarsi. There is degenerative arthrosis of the metatarsophalangeal joint of the hallux with a hallux valgus deformity. Normal tibial and fibular sesamoid bones. Normal interphalangeal joint of the great toe. Normal phalanges of the great toe. Normal second through fifth metatarsophalangeal joints. Normal interphalangeal joints and phalanges of the lesser toes. Soft tissue swelling. RAD/Foot 2 Views IMPRESSION: Soft tissue swelling. Demineralization of the bony structures. Electronically Signed: Andrei Nielson MD at 11:58 EDT ,
[2024-03-28 10:52] LABS: Urine Bilirubin Dipstick 1 mg/dL (Negative)
[2024-03-28 10:54] LABS: Internal QC Validated? YES +Cl - CLEAR BKGD; Pregnancy, Urine Negative Negative
[2024-03-28 10:59] LABS: Bacteria 2+ /hpf (None Seen); Hyaline Cast 0-5 SEEN /lpf (0-5); Mucous, Urine 2+ /hpf (<or=2+); Red Blood Cells-Urine 0-5 SEEN /hpf (0-5); Squamous Epithelial Cells - UA 0-5 SEEN /hpf (5-10); White Blood Cells 5-10 SEEN /hpf (0-5)
[2024-03-28 11:13] LABS: ALB/GLOB Ratio 1.2 RATIO (0.9-2.4); AST(SGOT) 19 U/L (15-37); Alanine Aminotransfer ALT/SGPT 15 U/L (13-56); Albumin, Serum 4.3 g/dL (3.2-5.0); Alkaline Phosphatase 89 U/L (45-117); Anion Gap 11 (5-15); BUN 18 mg/dL (7-18); BUN/Creat Ratio 17.6 RATIO (10-20); CPK Total, Creatine Kinase 116 U/L (26-192); CRP < 2.90 mg/L (0.0-3.0); Calcium,Total 9.3 mg/dL (8.5-10.1); Chloride 104 mmol/L (98-107); Creatinine, Serum 1.02 mg/dL (0.55-1.02); EST Glomerular Filtration Rate 63 mL/min (>60); Est Glom Filt Rate - Afr Amer 76 mL/min (>60); Estimated Creatinine Clearance 53.66 ml/min; Globulin 3.5 g/dL (2.2-4.2); Glucose 172 mg/dL (74-106); Protein, Total 7.8 g/dL (6.4-8.2); Sodium Level 137 mmol/L (136-145)
[2024-03-28 11:13] LABS: Amphetamine Urine VISTA POSITIVE (<1000 ng/mL); Barbiturate Urine VISTA NEGATIVE (< 200 ng/mL); Benzodiazepine Urine VISTA NEGATIVE (< 200 ng/mL); Cocaine Urine VISTA NEGATIVE (< 300 ng/mL); Ecstacy Urine VISTA POSITIVE (< 500 ng/mL); Methadone Urine VISTA NEGATIVE (< 300 ng/mL); PCP Urine VISTA NEGATIVE (< 25 ng/mL); THC Urine VISTA POSITIVE (< 50 ng/mL); Vista UDS pH Range 4
[2024-03-28 11:18] VITALS: BP 151/105; PULSE 99; RESP 14; TEMP 36.6; O2SAT 100
[2024-03-28 11:26] LABS: Alcohol, Blood (Medical)-Serum < 3.0 mg/dL
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
[2024-03-28 11:50] LABS: Lactic Acid 1.5 mmol/L (0.4-1.9)
[2024-03-28 12:28] VITALS: BP 137/100; PULSE 103; RESP 16; TEMP 36.6; O2SAT 100
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
[2024-03-28] MEDS: Ceftriaxone 1 GM/50 ML BAG IV (12:46)
--- NOTE | 2024-03-28 12:49 | NURSING ---
MED SURG KORAM UTI, CONFUSION
--- NOTE | 2024-03-28 13:56 | WOUNDNOTE ---
wound photo: right foot
--- NOTE | 2024-03-28 13:57 | WOUNDNOTE ---
wound photo: left foot
--- NOTE | 2024-03-28 13:58 | WOUNDNOTE ---
wound photo: back
--- NOTE | 2024-03-28 14:00 | WOUNDNOTE ---
Was asked by nursing to assess the discoloration to bilateral feet. patient very confused and unable to tell this nurse what caused the discoloration to the feet. patient did mention something about straps being across her feet in the wheelchair. this may be the cause for the discoloration, but is really uncertain. moderate edema noted bilaterally. pulses are weak. there are some small thin scabbed areas noted across the dorsal feet. patient appears unkempt. washed feet with soap and water. pat dry. the discoloraiton to the right foot measures approx 15cm x 10cm and the discoloration to the left foot measures approx 8cm x 9cm. patient also has a scratch to the upper to mid back. patient unsure of the cause of this as well.
[2024-03-28 14:05] VITALS: BP 145/97; PULSE 98; RESP 18; TEMP 36.3; O2SAT 100
--- NOTE | 2024-03-28 15:14 | ART_ITS ---
Reason For Study: BLE Ulcers Procedure A bilateral lower extremity continuous wave Doppler with analog waveform analysis and ankle brachial indexes. Left Segmental Pressures Left brachial= 106mmHg. Left posterior tibial artery = 122mmHg. Left dorsalis pedis artery = 123mmHg. Left digit = 104 mmHg. The left posterior tibial artery waveforms are triphasic. The left dorsalis pedis waveforms are triphasic. Right Segmental Pressures Right posterior tibial artery = 124mmHg. Right dorsalis pedis artery = 115mmHg. Right digit = 92 mmHg. The right posterior tibial artery waveforms are triphasic. The right dorsalis pedis waveforms are triphasic. Indices The right ankle brachial index by the posterior tibial artery is 1.17. The right ankle brachial index by the dorsalis pedis is 1.08. The right digital-brachial index is 0.87. The left ankle brachial index by the posterior tibial artery is 1.15. The left ankle brachial index by the dorsalis pedis is 1.16. The left digital-brachial index is 0.98. VL/Ankle Brachial Index Interpretation Summary Right DMITRY 1.17, normal. TBI and Doppler/PVR waveforms of the right ankle normal at rest. Left DMITRY 1.16, normal. TBI and Doppler/PVR waveforms of the left ankle normal a t rest. Ordering Physician: Ne Grey Referring Physician: Roxanne Howell Performed By: Vitaliy Connell, RVT
[2024-03-28] MEDS: 0.9% Normal Saline (1000mL) 1,000 ML 125 ML IV ×2 (15:56→23:26)
--- NOTE | 2024-03-28 16:23 | CASEMGMT ---
Social Work- SW met with pt to collect contact information and help regulate emotions, as pt had presented as labile upon admittance. SW and pt collaboratively discussed coping strategies to utilize this evening. SW will follow up with pt tomorrow for JEWEL to counselor at [facility]. NELIDA Andrews
--- NOTE | 2024-03-28 18:09 | NURSING ---
unable to obtain accurate medicine record-pt uses [facility] and they are closed
[2024-03-28] MEDS: RisperiDONE 0.5 MG Tablet PO (23:22)
[2024-03-28] MEDS: 0.9% Saline Lock 10 ML Syringe IV (23:23)
[2024-03-28 23:27] VITALS: BP 131/87; PULSE 71; RESP 16; TEMP 36.6; O2SAT 98
[2024-03-29 05:00] VITALS: BP 95/56; PULSE 71; RESP 16; TEMP 36.7; O2SAT 100
[2024-03-29 06:36] LABS: Absolute Lymphocyte Count 1.23 X10^3/uL (0.83-4.51); Absolute Neutrophil Count 1.6 X10^3/uL (2.0-7.7); Basophil# 0.01 X10^3/uL; Basophil% 0.3 % (0-1); Eosinophil# 0.03 X10^3/uL; Eosinophils% 0.9 % (0-5); Hemoglobin 11.9 g/dL (12.0-15.0); Lymphocyte # 1.23 X10^3/ul (0.83-4.51); Lymphocyte % 36.2 % (19-41); Mean Corp Hgb Conc 33.1 g/dL (32-36); Mean Corpuscular Hgb 30.7 pg (27.0-32.0); Mean Platelet Vol. 9.7 fl (6.2-12.0); Monocyte# 0.49 X10^3/uL; Monocyte% 14.4 % (0-10); NRBC Flagged by Analyzer 0 % (0-5); Neutrophil # 1.64 X10^3/uL (2.7-7.7); Neutrophil % 48.2 % (47-70); Platelet Count 181 K/mm3 (150-450); RBC Distribution Width CV 12.4 % (11.6-14.6); Red Blood Count 3.87 M/mm3 (4.2-5.4); White Blood Count 3.4 K/mm3 (4.4-11.0)
[2024-03-29 07:08] LABS: Anion Gap 5 (5-15); BUN 10 mg/dL (7-18); BUN/Creat Ratio 20.5 RATIO (10-20); Calcium,Total 8.1 mg/dL (8.5-10.1); Chloride 114 mmol/L (98-107); Creatinine, Serum 0.49 mg/dL (0.55-1.02); EST Glomerular Filtration Rate 147 mL/min (>60); Est Glom Filt Rate - Afr Amer 178 mL/min (>60); Estimated Creatinine Clearance 111.71 ml/min; Glucose 84 mg/dL (74-106); Potassium 3.5 mmol/L (3.5-5.1); Sodium Level 140 mmol/L (136-145)
[2024-03-29] MEDS: Pantoprazole Sodium 40 MG Tablet PO (08:33)
[2024-03-29] MEDS: Acetaminophen 325 MG Tablet 650 MG PO (08:33)
[2024-03-29] MEDS: oxyCODONE 5 MG Tablet PO (08:34)
[2024-03-29] MEDS: Ceftriaxone 1 GM/50 ML BAG IV (08:37)
--- NOTE | 2024-03-29 09:57 | WOUNDNOTE ---
Discoloration and scabbed areas remain stable to bilateral feet. no drainage. no redness noted.
[2024-03-29 09:59] VITALS: BP 95/55; PULSE 78; RESP 16; TEMP 36.2; O2SAT 100
--- NOTE | 2024-03-29 10:51 | PN_ITS ---
Subjective Subjective Patient seen and examined. Patient was sitting comfortably watching TV when I went to number when she saw me subsequently became tearful. She denies any pain, any fever or chills, nausea vomiting or any burning with urination. Patient has a very labile affect and alternates between being very emotional and crying and having a flat affect. Review of systems is otherwise negative. Objective Data Objective Data Vital Signs: Vital Signs Temp Pulse Resp BP Pulse Ox O2 Del Method 97.2 F L 78 16 95/55 L 100 Room Air 03/29/24 09:59 03/29/24 09:59 03/29/24 09:59 03/29/24 09:59 03/29/24 09:59 03/29/24 09:59 Oxygen Delivery Method Room Air Weight: 106 lb 4.205 oz Body Mass Index (BMI) 20.0 Intake & Output: Intake and Output for Last 24 Hours 03/27/24 03/28/24 03/29/24 23:59 23:59 23:59 Intake Total 2751.75 / 2751.75 1050 / 1050 Output Total 400 / 400 Balance 2751.75 / 2751.75 650 / 650 Lab / Micro Data 03/29/24 05:39 03/29/24 05:39 Labs: Laboratory Results - last 24 hr 03/28/24 08:48: ESR 4, Sodium 137, Potassium 3.0 L, Chloride 104, Carbon Dioxide 22.0, Anion Gap 11, BUN 18, Creatinine 1.02, Estim Creat Clear Calc 53.66, Est GFR (MDRD) Af Amer 76, Est GFR (MDRD) Non-Af 63, BUN/Creatinine Ratio 17.6, Glucose 172 H, Calcium 9.3, Total Bilirubin 1.20 H, AST 19, ALT 15, Alkaline Phosphatase 89, Total Creatine Kinase 116, C-React Prot Ext Range < 2.90, Total Protein 7.8, Albumin 4.3, Globulin 3.5, Albumin/Globulin Ratio 1.2, Ethyl Alcohol < 3.0 03/28/24 10:25: Urine Color Yellow, Urine Clarity Cloudy, Urine pH 5.0, Ur Specific [place] 1.025, Urine Protein 30 H, Urine Glucose (UA) Normal, Urine Ketones 5 H, Urine Occult Blood 10 H, Urine Nitrite Positive H, Urine Bilirubin 1 H, Urine Urobilinogen 4 H, Ur Leukocyte Esterase 100 H, Urine RBC 0-5 SEEN, Urine WBC 5-10 SEEN, Ur Squamous Epith Cells 0-5 SEEN, Urine Bacteria 2+, Hyaline Casts 0-5 SEEN, Urine Mucus 2+, Urine Test Negative, Urine Opiates Screen NEGATIVE, Urine Methadone Screen NEGATIVE, Ur Barbiturates Screen NEGATIVE, Ur Phencyclidine Scrn NEGATIVE, Ur Amphetamines Screen POSITIVE H, MDMA (Ecstasy) Screen POSITIVE H, U Benzodiazepines Scrn NEGATIVE, Urine Cocaine Screen NEGATIVE, U Cannabinoids Screen POSITIVE H 03/28/24 11:15: Lactic Acid 1.5 03/29/24 05:39: WBC 3.4 L, RBC 3.87 L, Hgb 11.9 L, Hct 36.0 L, MCV 93.0, MCH 30.7, MCHC 33.1, RDW Std Deviation 42.0, RDW Coeff of Lee 12.4, Plt Count 181, MPV 9.7, Immature Gran % (Auto) 0.000, Neut % (Auto) 48.2, Lymph % (Auto) 36.2, [place] % (Auto) 14.4 H, Eos % (Auto) 0.9, Baso % (Auto) 0.3, Absolute Neuts (auto) 1.6 L, Absolute Lymphs (auto) 1.23, Nucleated RBC % 0, Sodium 140, Potassium 3 .5, Chloride 114 H, Carbon Dioxide 21.0, Anion Gap 5, BUN 10, Creatinine 0.49 L, Estim Creat Clear Calc 111.71, Est GFR (MDRD) Af Amer 178, Est GFR (MDRD) Non-Af 147, BUN/Creatinine Ratio 20.5 H, Glucose 84, Calcium 8.1 L Radiography Diagnostic Testing: Radiology Impression Brain CT 03/28/24 09:52 IMPRESSION: Chronic involutional changes of the brain. Absence of the corpus callosum. Electronically Signed: Andrei Nielson MD at 11:09 EDT , Foot X-Ray 03/28/24 09:52 IMPRESSION: Soft tissue swelling. Electronically Signed: Andrei Nielson MD at 12:01 EDT , Chest X-Ray 03/28/24 10:40 IMPRESSION: Normal x-ray examination of the chest. Electronically Signed: Andrei Nielson MD at 12:02 EDT , Foot X-Ray 03/28/24 10:51 IMPRESSION: Soft tissue swelling. Demineralization of the bony structures. Electronically Signed: Andrei Nielson MD at 11:58 EDT , Physical Exam Const alert and oriented x3 Constitutional Narrative: occasionally tearful General Appearance: cooperative HEENT normocephalic and head/scalp atraumatic Eyes PERRL and EOMs intact bilaterally Neck no lymphadenopathy and supple Lymph Lymphatic: no lymphadenopathy noted and no lymphedema noted Resp normal respiratory effort, normal air movement and clear to auscultation bilat erally Cardio regular rate, regular rhythm, S1 normal heart sound, S2 normal heart sound and no murmurs GI normal to inspection, nondistended, normoactive bowel sounds, soft to palpation, non-tender and non-distended Extremity normal capillary refill and no clubbing, cyanosis or edema Skin Skin Narrative: has superficial erythematous wounds and ulcerations with scab formation on dorsum of both feet, with associated erythema. Minimally tender to touch. Says it has been present for several months Neuro CN's II-XII intact bilaterally and no focal motor deficits Motor Exam: strength 5/5 throughout and general weakness Psych Psych Narrative: tearful Attitude: agitated Mood & Affect: anxious Assessment & Plan Assessment/Plan (1) UTI (urinary tract infection): PLAN: Plan #Acute encephalopathy * multifactorial; likely due to UTI, likely drug use * more alert and communicative today * urine tox positive for amphetamines, MDMA and cannabinoids * urinalysis also positive for UTI. Serum alcohol <3 * on IV ceftriaxone * blood and urine cultures pending. * PT/OT consult * hold all sedative meds * #UTI: as above #Bilateral foot wounds and ulcers * Says this is chronic. Will consult wound care. * Get arterial blood pressure indices of both lower extremities * patient is wondering if this could be shingles. The distribution does not really look to be dermatomal, and it is bilateral. Counseled she would benefit from follow up with dermatology on outpatient basis. * #History of cerebral palsy: uses a wheelchair. # History of bipolar disorder with posttraumatic stress disorder * Patient had a falling out with her significant other who is also her POA. She is afebrile in the house and she does not want those people there. She does leave the house because she did not want them there. * Consult case management to help with complex social situation. * On Risperdal * DVT prophylaxis: Lovenox Charges/Coding Visit Charges Inpatient E&M: 87665 Subs Hosp L2
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
--- NOTE | 2024-03-29 14:49 | CASEMGMT ---
Social Work- SW called [facility] to connect pt with services. There was no anatomy and physiology instructor available, but SW name and number was taken and SW was told someone will call in 24-48 hours. JESSE spoke with [facility] about possibility of pt being able to stay @ their snf. 180 states that they do have one handicap room, but it is occupied currently. JESSE was also notified that resident must be fully independent or have aides available for all ADL. NELIDA Andrews
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
[2024-03-29 15:01] VITALS: BP 115/77; PULSE 82; RESP 18; TEMP 36.7; O2SAT 98
--- NOTE | 2024-03-29 15:24 | NURSING ---
Katty sent current med list for patient after requested
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
[2024-03-29 21:38] VITALS: BP 98/58; PULSE 74; RESP 16; TEMP 36.9; O2SAT 96
[2024-03-29] MEDS: RisperiDONE 0.5 MG Tablet PO (21:46)
[2024-03-30 03:26] VITALS: BP 93/60; PULSE 60; RESP 16; TEMP 36.8; O2SAT 97
[2024-03-30 06:11] LABS: Absolute Lymphocyte Count 1.39 X10^3/uL (0.83-4.51); Absolute Neutrophil Count 1.8 X10^3/uL (2.0-7.7); Basophil# 0.02 X10^3/uL; Basophil% 0.5 % (0-1); Eosinophil# 0.03 X10^3/uL; Eosinophils% 0.8 % (0-5); Hematocrit 35.3 % (37-47); Hemoglobin 11.4 g/dL (12.0-15.0); Lymphocyte # 1.39 X10^3/ul (0.83-4.51); Lymphocyte % 37.8 % (19-41); Mean Corp Hgb Conc 32.3 g/dL (32-36); Mean Corpuscular Hgb 30.5 pg (27.0-32.0); Mean Corpuscular Volume 94.4 fL (81-99); Mean Platelet Vol. 9.2 fl (6.2-12.0); Monocyte# 0.44 X10^3/uL; NRBC Flagged by Analyzer 0 % (0-5); Neutrophil % 48.9 % (47-70); Platelet Count 172 K/mm3 (150-450); RBC Distribution Width CV 12.8 % (11.6-14.6); RBC Distribution Width SD 44.2 fl (35.1-43.9); Red Blood Count 3.74 M/mm3 (4.2-5.4); White Blood Count 3.7 K/mm3 (4.4-11.0)
[2024-03-30 06:34] LABS: Anion Gap 2 (5-15); BUN 10 mg/dL (7-18); BUN/Creat Ratio 16.8 RATIO (10-20); Chloride 117 mmol/L (98-107); EST Glomerular Filtration Rate 117 mL/min (>60); Est Glom Filt Rate - Afr Amer 141 mL/min (>60); Estimated Creatinine Clearance 91.23 ml/min; Glucose 102 mg/dL (74-106); Potassium 3.8 mmol/L (3.5-5.1); Sodium Level 144 mmol/L (136-145)
--- NOTE | 2024-03-30 08:28 | WOUNDNOTE ---
the discoloration to bilateral feet appears to be improving. there are still a few small scabbed areas noted. washed feet with soap and water. pat dry. will continue to monitor. heels are up off bed on pillows.
[2024-03-30 08:45] VITALS: BP 108/73; PULSE 64; RESP 18; TEMP 37.2; O2SAT 98
[2024-03-30] MEDS: 0.9% Normal Saline (1000mL) 1,000 ML 100 ML IV ×2 (08:48→17:24)
[2024-03-30] MEDS: Pantoprazole Sodium 40 MG Tablet PO (08:50)
[2024-03-30] MEDS: 0.9% Saline Lock 10 ML Syringe IV (08:50)
[2024-03-30] MEDS: Ceftriaxone 1 GM/50 ML BAG IV (10:19)
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
[2024-03-30] MEDS: Enoxaparin 40 MG/0.4 ML Syringe SC (12:09)
--- NOTE | 2024-03-30 13:28 | CASEMGMT ---
Social work_ SW attempted multiple times to reach Zully/Yonathan to request pt's items be dropped off to the hospital; per pt request. Each time SW calls, the line rings busy. NELIDA King
[2024-03-30 15:20] VITALS: BP 117/66; PULSE 78; RESP 18; TEMP 37; O2SAT 99
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
--- NOTE | 2024-03-30 16:59 | CASEMGMT ---
Social Work Phone call with Denise Hernández of [facility]. Pt has services through [facility] and Lela Barlow is pt's Crotch Piece Baster. Per Denise, pt has an emergency response system, has requested a roll in shower chair (this has not been provided yet) and is eligible for aid services, but no aids are available at this time. Per Denise, under the waiver program, pt can be admitted to a SNF for up to 90 days at no cost to her. This SW and Princess MOLINA met with pt to discuss home situation along with discharge plan. See additional SW notes. Pt continues to state that she does not want to return to her home where her significant other and friends are living. Pt expressing desire to get them out of her home prior to her return. SW's explained that Prototype Engineer Manager can assist with eviction of roommates and pt is agreeable to meet with the Prototype Engineer Manager. This SW spoke with pt regarding short term plan while pt is working to get roommates evicted. Pt is agreeable to short term SNF placement as she is aware that she does need assistance and cannot care for herself at this time. A list of SNF providers including quality and resource use data and consistent with the patient?s preferred geographic region, medical needs, and insurance network were provided from the [facility]. SW reviewed list with pt. Pt expresses importance of staying in [place] and specifically close to her home. Pt preferred provider is [facility]. Pt does state that if [facility] cannot accept, pt would be willing to go to any facility in [place]. Emotional support provided to pt as she reviewed events of the past days and frustration with relationships and situation. SW will make referrals and continue to follow for dc planning. NELIDA Cote
[2024-03-30 21:46] VITALS: BP 99/61; PULSE 77; RESP 16; TEMP 36.7; O2SAT 98
[2024-03-30] MEDS: RisperiDONE 0.5 MG Tablet PO (21:57)
[2024-03-31 03:26] VITALS: BP 92/48; PULSE 55; RESP 16; TEMP 36.7; O2SAT 95
[2024-03-31 07:14] LABS: Absolute Lymphocyte Count 1.54 X10^3/uL (0.83-4.51); Absolute Neutrophil Count 1.5 X10^3/uL (2.0-7.7); Basophil# 0.03 X10^3/uL; Basophil% 0.9 % (0-1); Eosinophil# 0.05 X10^3/uL; Eosinophils% 1.4 % (0-5); Hematocrit 35.3 % (37-47); Hemoglobin 11.5 g/dL (12.0-15.0); Lymphocyte # 1.54 X10^3/ul (0.83-4.51); Lymphocyte % 43.8 % (19-41); Mean Corp Hgb Conc 32.6 g/dL (32-36); Mean Corpuscular Hgb 30.7 pg (27.0-32.0); Mean Corpuscular Volume 94.1 fL (81-99); Mean Platelet Vol. 9.9 fl (6.2-12.0); Monocyte# 0.41 X10^3/uL; Monocyte% 11.6 % (0-10); NRBC Flagged by Analyzer 0 % (0-5); Neutrophil # 1.48 X10^3/uL (2.7-7.7); Platelet Count 172 K/mm3 (150-450); RBC Distribution Width CV 12.5 % (11.6-14.6); RBC Distribution Width SD 43.8 fl (35.1-43.9); Red Blood Count 3.75 M/mm3 (4.2-5.4); White Blood Count 3.5 K/mm3 (4.4-11.0)
[2024-03-31 08:17] LABS: Anion Gap 7 (5-15); BUN 12 mg/dL (7-18); BUN/Creat Ratio 18.4 RATIO (10-20); Calcium,Total 7.6 mg/dL (8.5-10.1); Chloride 111 mmol/L (98-107); Creatinine, Serum 0.65 mg/dL (0.55-1.02); EST Glomerular Filtration Rate 105 mL/min (>60); Est Glom Filt Rate - Afr Amer 128 mL/min (>60); Estimated Creatinine Clearance 84.21 ml/min; Glucose 92 mg/dL (74-106); Potassium 3.9 mmol/L (3.5-5.1); Sodium Level 140 mmol/L (136-145)
--- NOTE | 2024-03-31 08:30 | WOUNDNOTE ---
Small scabs remains in place to bilateral dorsal feet. the discoloration is slowly improving. pt states pain has decreased in the feet. will monitor.
[2024-03-31 08:40] VITALS: BP 106/75; PULSE 64; RESP 18; TEMP 36.8; O2SAT 99
[2024-03-31] MEDS: Enoxaparin 40 MG/0.4 ML Syringe SC (08:44)
[2024-03-31] MEDS: 0.9% Normal Saline (1000mL) 1,000 ML 150 ML IV ×2 (08:45→14:35)
[2024-03-31] MEDS: Pantoprazole Sodium 40 MG Tablet PO (08:45)
[2024-03-31] MEDS: 0.9% Saline Lock 10 ML Syringe IV (08:46)
[2024-03-31] MEDS: Ceftriaxone 1 GM/50 ML BAG IV (09:11)
--- NOTE | 2024-03-31 09:13 | CASEMGMT ---
Social Work Referrals sent to [facility], [facility] and [facility]. Pt expressing preference to stay at a facility in [place]. Will await determination of acceptance. Pt will need precert prior to discharge. NELIDA Stuart
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
[2024-03-31 14:20] VITALS: BP 130/83; PULSE 70; RESP 18; TEMP 36.9; O2SAT 100
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
--- NOTE | 2024-03-31 16:53 | NURSING ---
This RN was notified by social work that pt was requesting to leave AMA. It was explained to pt why doctor would not discharge her at this time. Pt understood and still chose to leave AMA. Pt's friend Samaria came to product picker pt. IVs were removed, AMA papers were signed, and pt was taken down to friend's car for discharge by this RN and ECONOMICS PROFESSOR Brianna. Dr Grey was notified.
--- NOTE | 2024-04-01 07:07 | DS.PCM_ITS ---
Providers Date of Admission: 03/28/24 Date of Discharge: 04/01/24 Primary Care Physician: Dr. Roxanne Howell MD Consultations 03/28/24 15:14 Consult: Onc/Wound/chairman ceo Routine Comment: Reason For Visit: ACUTE ENCELPHALOPATHY, UTI Diagnosis Discharge Diagnosis (1) UTI (urinary tract infection): Status: Acute Code(s): N39.0 - Urinary tract infection, site not specified Plan #Acute encephalopathy * multifactorial; likely due to UTI, likely drug use * encephalopathy has resolved. * urine tox positive for amphetamines, MDMA and cannabinoids * urinalysis also positive for UTI. Serum alcohol <3 * on IV ceftriaxone * urine cultures growing E coli, which is pansensitive * PT/OT consult * hold all sedative meds * Resolved. * #UTI: as above. Urine culture did E. coli which is pansensitive. Will therefore switch to p.o. cefdinir today. #Hypotension: * Blood pressure continues to run low today and systolic was in the 90s. Did improve with hydration. * All pain meds on hold and not on any BP meds. Will continue hydration today with IV fluids. * If it continues to run low will consider starting midodrine. * Check orthostatics. * #Bilateral foot wounds and ulcers * Says this is chronic. Will consult wound care. * Get arterial blood pressure indices of both lower extremities * patient is wondering if this could be shingles. The distribution does not re ally look to be dermatomal, and it is bilateral. Counseled she would benefit from follow up with dermatology on outpatient basis. * #History of cerebral palsy: uses a wheelchair. # History of bipolar disorder with posttraumatic stress disorder * Patient had a falling out with her significant other who is also her POA. She is afebrile in the house and she does not want those people there. She does leave the house because she did not want them there. * Consult case management to help with complex social situation. * On Risperdal * DVT prophylaxis: Lovenox Disposition: awaiting placement Medications at Discharge Home Medications albuterol sulfate 2.5 mg/3 mL (0.083 %) solution for nebulization 2.5 mg inhalation Q4H PRN PRN Sob &/Or Wheezing 12/04/18 albuterol sulfate 90 mcg/actuation aerosol inhaler 2 puff inhalation Q4H PRN shortness of breath or wheezing 03/28/24 omeprazole 40 mg capsule,delayed release 40 mg PO DAILY 03/28/24 risperidone 0.5 mg tablet 0.5 mg PO DAILY 03/28/24 Hospital Course Operations None Procedures None Summary of Care Provided Minutes Spent on Discharge: 55 Hospital Course: REGI HERNANDEZ, is a 44 F with a PMH as outlined who presents via the ED on 03/28/2024 with a complaint of confusion./ She was stuck in the mud in her whee lchair. She had fallen out with her significant other who was also her power of litigation attorney associate. She had not been feeling well and set off to come to the hospital, but was found stuck in [facility] mud by her the EMS. She denied any fever, chills, chest pain, palpitations, nausea, vomiting or any other symptoms. She complained of pain in her feet for several months. Patient was quite agitated during review and kept saying that she felt drugged up that someone had given her something but she was not sure who and wondered if she was hallucinating. Vitals in the ED were BP of 137/100, AZ of 103, RR of 16 and temp of 97.8F with her saturating at 100% on room air. CBC was unremarkable. BMP showed sodium of 137 with potassium of 3 and creatinine of 1.02. Total bilirubin was 1.2. Urinalysis showed evidence of UTI with elevated leukocyte esterase and bacteria. Urine tox screen was positive for amphetamines and MDMA as well as cannabinoids and serum alcohol level was less than 3. 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 Chest x- ray showed no acute cardiopulmonary pathology and foot x-ray showed soft tissue swelling with demineralization of the bony structures. She was admitted to be managed for acute metabolic encephalopathy in the setting of UTI, hypokalemia and abnormal toxicology. She was placed on IV ceftriaxone. Her potassium was also replaced. Urine cultures grew E. coli which was pansensitive so she was switched to p.o. cefdinir. Patient's altered mental status resolved and his symptoms improved. Hospital course was complicated by hypotension which responded to fluids but patient was subsequently become hypotensive again. On the morning of 03/31/2024, patient was still hypotensive with blood pressure running in the 90s. She was however asymptomatic. Patient was hydrated with fluids and plan was to watch her overnight to make sure that she did not become hypotensive again after the fluids. Patient however decided to sign out AGAINST MEDICAL ADVICE. Despite being consulted about the need to stay for blood pressure to be monitored so that she did not become hypotensive however she insisted on being discharged home. She therefore signed out AGAINST MEDICAL ADVICE on 03/31/2024. Patient was seen and examined prior to discharge. She had been agreeable to staying in the hospital but subsequently decided to sign out AGAINST MEDICAL ADVICE. Labs and vitals reviewed. Physical Exam Const alert, oriented x3 and no apparent distress General Appearance: cooperative and comfortable HEENT normocephalic, head/scalp atraumatic, hearing grossly normal bilaterally and moist oral mucous membranes Mouth: oral and palatal mucosa normal Eyes PERRL and EOMs intact bilaterally Neck no lymphadenopathy and supple Lymph Lymphatic: no lymphadenopathy noted and no lymphedema noted Resp normal respiratory effort, normal air movement, no use of accessory muscles and clear to auscultation bilaterally Cardio regular rate, regular rhythm, S1 normal heart sound, S2 normal heart sound and no murmurs GI normal to inspection, nondistended, normoactive bowel sounds, soft to palpation, non-tender and non-distended Extremity normal to inspection, full ROM, normal capillary refill and no clubbing, cyanosis or edema Skin Skin Narrative: has superficial erythematous wounds and ulcerations with scab formation on dorsum of both feet, with associated erythema. Says it has been present for several months Neuro oriented x3, CN's II-XII intact bilaterally, moves all extremities and no focal motor deficits Sensorium / Orientation: awake and alert Motor Exam: strength 5/5 throughout and general weakness Psych affect normal Psych Narrative: tearful Appearance: appropriate Attitude: agitated Weight / BMI Weight Weight: 106 lb 4.205 oz Body Mass Index (BMI) 20.0 ABG / Lab / Microbiology Data 03/31/24 05:34 03/31/24 05:34 Laboratory: Laboratory Results - last 24 hr 03/31/24 05:34: WBC 3.5 L, RBC 3.75 L, Hgb 11.5 L, Hct 35.3 L, MCV 94.1, MCH 30.7, MCHC 32.6, RDW Std Deviation 43.8, RDW Coeff of Lee 12.5, Plt Count 172, MPV 9.9, Immature Gran % (Auto) 0.300, Neut % (Auto) 42.0 L, Lymph % (Auto) 43.8 H, [place] % (Auto) 11.6 H, Eos % (Auto) 1.4, Baso % (Auto) 0.9, Absolute Neuts (auto) 1.5 L, Absolute Lymphs (auto) 1.54, Nucleated RBC % 0, Sodium 140, Potassium 3.9, Chloride 111 H, Carbon Dioxide 22.0, Anion Gap 7, BUN 12, Creatinine 0.65, Estim Creat Clear Calc 84.21, Est GFR (MDRD) Af Amer 128, Est GFR (MDRD) Non-Af 105, BUN/Creatinine Ratio 18.4, Glucose 92, Calcium 7.6 L Microbiology: Microbiology 03/28/24 16:20 Blood Culture (Wb) - Left Hand Blood Culture - Preliminary No growth in 48 hours. 03/28/24 16:20 Blood Culture (Wb) - Anticubital Left Blood Culture - Preliminary No growth in 48 hours. 03/28/24 10:25 Urine Catheter - Catheter Urine Culture - Final Escherichia coli Meaningful Use Info Meaningful Use Meaningful Use Diagnoses (Choose all that apply): None applicable Ischemic Stroke Statin Dosing Therapy Reference: STATIN DOSE THERAPY REFERENCE: * Patients > 75 years receive moderate or high dose statin therapy. * Patients 75 years or YOUNGER should receive HIGH intensity statin dose unless contraindicated. You will be required to document reason for non-treatment if statin daily dose does not meet guidelines. HIGH DOSE STATIN THERAPY DAILY Atorvastatin > than or = to 40 mg Rosuvastatin > than or = to 20 mg Amlodipine + Atorvastatin > than or = to 2.5/40 mg Ezetimibe + Simvastatin 10/80 mg Simvastatin 80mg Discharge Plan Admission Admit Date/Time: 03/28/24 12:34 Attending Provider: Ne Grey Primary Care Provider: Roxanne Howell Discharge Orders/Prescriptions Prescriptions: No Action albuterol sulfate 2.5 MG/3 ML solution for nebulization 2.5 mg inhalation Q4H PRN PRN (Reason: Sob &/Or Wheezing) albuterol sulfate 90 mcg/actuation HFA aerosol inhaler 2 puff inhalation Q4H PRN (Reason: shortness of breath or wheezing) omeprazole 40 mg capsule,delayed release(DR/EC) 40 mg PO DAILY risperidone 0.5 mg tablet 0.5 mg PO DAILY Referrals / Follow Up: Roxanne Howell MD [Primary Care Provider] - Disposition Disposition (needs filled in before D/C Order can be placed): Against Medical Advice Charges/Coding Visit Charges Inpatient E&M: 78274 Disch Hosp >30min
== END 2024-03-31 16:35 | disposition left against medical advice (07) | DRG 917 ==
LOC: ED 09:47 → MS3 12:44
PROVIDERS: Admitting Provider Student in an Organized Health Care Education/Training Program; Emergency Provider Emergency Medicine; PCP Internal Medicine; Visit Provider Student in an Organized Health Care Education/Training Program
DX: T43.641A Poisoning by ecstasy, accidental (unintentional), initial encounter (principal); G92.8 Other toxic encephalopathy; G93.41 Metabolic encephalopathy; N39.0 Urinary tract infection, site not specified; I95.9 Hypotension, unspecified; E87.6 Hypokalemia; G80.9 Cerebral palsy, unspecified; F31.9 Bipolar disorder, unspecified; L97.511 Non-pressure chronic ulcer of other part of right foot limited to breakdown of skin; L97.521 Non-pressure chronic ulcer of other part of left foot limited to breakdown of skin; B96.20 Unspecified Escherichia coli [E. coli] as the cause of diseases classified elsewhere; Z99.3 Dependence on wheelchair; Z79.899 Other long term (current) drug therapy; Z87.891 Personal history of nicotine dependence
CPT/HCPCS: 36415; 70450; 71045; 73620; 80048; 80053; 80307; 80320; 81001; 81025; 82550; 83605; 85025; 85652; 86140; 87040; 87077; 87086; 87088; 87186; 93005; 93922; 97162; 97166; 97530; 97535; 99285; J7030; A4216; G0480

== ENCOUNTER → 2024-08-11 | Outpatient (CLI) | payer MEDICARE, MEDICAID, SELFPAY ==
[2024-08-11 18:22] LABS: Absolute Lymphocyte Count 1.32 X10^3/uL (0.83-4.51); Absolute Neutrophil Count 2.2 X10^3/uL (2.0-7.7); Basophil# 0.05 X10^3/uL; Basophil% 1.2 % (0-1); Eosinophil# 0.04 X10^3/uL; Hematocrit 43.6 % (37-47); Hemoglobin 13.9 g/dL (12.0-15.0); Lymphocyte # 1.32 X10^3/ul (0.83-4.51); Lymphocyte % 32.7 % (19-41); Mean Corp Hgb Conc 31.9 g/dL (32-36); Mean Corpuscular Hgb 30.5 pg (27.0-32.0); Mean Corpuscular Volume 95.8 fL (81-99); Mean Platelet Vol. 10.1 fl (6.2-12.0); Monocyte# 0.43 X10^3/uL; Monocyte% 10.6 % (0-10); NRBC Flagged by Analyzer 0 % (0-5); Neutrophil # 2.19 X10^3/uL (2.7-7.7); Neutrophil % 54.3 % (47-70); Platelet Count 258 K/mm3 (150-450); RBC Distribution Width CV 12.3 % (11.6-14.6); RBC Distribution Width SD 43.5 fl (35.1-43.9); Red Blood Count 4.55 M/mm3 (4.2-5.4)
[2024-08-11 19:21] LABS: ALB/GLOB Ratio 1.2 RATIO (0.9-2.4); AST(SGOT) 14 U/L (15-37); Alanine Aminotransfer ALT/SGPT 14 U/L (13-56); Alkaline Phosphatase 83 U/L (45-117); Anion Gap 9 (5-15); BUN 9 mg/dL (7-18); BUN/Creat Ratio 13.6 RATIO (10-20); Chloride 105 mmol/L (98-107); Creatinine, Serum 0.66 mg/dL (0.55-1.02); EST Glomerular Filtration Rate 103 mL/min (>60); Est Glom Filt Rate - Afr Amer 125 mL/min (>60); Globulin 3.2 g/dL (2.2-4.2); Glucose 85 mg/dL (74-106); Potassium 3.8 mmol/L (3.5-5.1); Protein, Total 7.2 g/dL (6.4-8.2); Sodium Level 139 mmol/L (136-145)
== END | disposition home or self-care (01) ==
LOC: BFHLAB 14:16
PROVIDERS: PCP Family Medicine; Referring Provider Family Medicine; Visit Provider Family Medicine
DX: R63.4 Abnormal weight loss (principal); K21.9 Gastro-esophageal reflux disease without esophagitis
CPT/HCPCS: 36415; 80053; 84443; 85025

== ENCOUNTER 2025-02-28 13:28 | Observation (INO) | payer MEDICARE, MEDICAID, SELFPAY ==
[2025-02-28 13:30] VITALS: BP 141/77; PULSE 83; RESP 18; TEMP 37.2; O2SAT 100; BMI 20.5
--- NOTE | 2025-02-28 13:52 | EX.ED.DYSGE1 ---
HPI History of Present Illness Chief Complaint: General Illness Detail of Chief Complaint: Unable to care for herself, feet bleeding wants detention placement Informant: patient and other (Patient's telephonic case manager) Onset/Context/Timing Onset: Weeks Context: Gradual Onset Timing: Continuous Quality: Patient unable to care for herself. Location: Presents from her residence Current Severity: Not applicable Maximum Severity: Not applicable Worsened by: Unable to care for self Relieved by: nothing Associated Symptoms Associated Symptoms: Brought to ER by telephonic case manager Narrative Narrative: Patient is a 45-year-old woman who presents from home. weatherization operations manager brought to the ER because she is unable to care for herself. She has history of cerebral palsy, GERD, depression, posttraumatic stress disorder. The wounds on the dorsum of her feet have been there for some time per case management and patient. Patient states I need to go to nursing facility . Patient's major case detective/telephonic case manager states her present living environment is suitable and she will need placement. Case management for the ER, Tabatha, has been consulted and is pleasantly talking to patient's telephonic case manager. Prior similar symptoms: No Recent Illness/Hospitalization: No PFSH PFSH Medical History Caffeine dependence Dependent for wheelchair mobility Neurogenic bladder GERD without esophagitis Seasonal allergic rhinitis Cerebral palsy Post traumatic stress disorder (PTSD) Bipolar 1 disorder Home Medications ?Medication ?Instructions ?Recorded ?Last Taken ?Type albuterol sulfate 2.5 mg/3 mL 2.5 mg inhalation Q4H PRN PRN Sob 12/04/18 Unknown History (0.083 %) solution for nebulization &/Or Wheezing albuterol sulfate 90 mcg/actuation 2 puff inhalation Q4H PRN 03/28/24 Unknown History aerosol inhaler shortness of breath or wheezing omeprazole 40 mg capsule,delayed 40 mg PO DAILY 03/28/24 Unknown History release risperidone 0.5 mg tablet 0.5 mg PO DAILY 03/28/24 Unknown History Allergy/AdvReac Type Severity Reaction Status Date / Time [place]ut Allergy Anaphylaxis Verified 02/28/25 13:29 coconut oil Allergy Anaphylaxis Verified 02/28/25 13:29 latex Allergy Rash Verified 02/28/25 13:29 cyclobenzaprine HCl (From AdvReac gets mean Verified 02/28/25 13:29 Flexeril) guaifenesin (From Robitussin) AdvReac Other Verified 02/28/25 13:29 Family History Other Bipolar disorder Surgical History History of appendectomy History of cholecystectomy History of hysterectomy Social History Smoking Status: Former smoker ROS ROS ED Constitutional Constitutional ED: Denies chills, fever(s), subjective, sweats or weight loss Eyes Eyes: Denies blurry vision or change in vision ENT ENT ED: Denies ear pain or rhinorrhea Cardiovascular Cardiovascular: Denies chest pain, orthopnea, palpitations or racing heartbeat Respiratory/Chest Respiratory/Chest: Denies cough, dyspnea, dyspnea on exertion or orthopnea Gastrointestinal Gastrointestinal: Denies abdominal pain, nausea or vomiting Genitourinary Genitourinary ED: Denies dysuria, hematuria or urinary frequency Musculoskeletal Musculoskeletal: Denies arthralgias or myalgias Integumentary Reports Abrasions Neurologic Neurologic: Reports weakness; Denies headache(s) Hematologic/Lymphatic Hematologic/Lymphatic: Reports systems reviewed and no addt'l complaints, except as documented EXAM Physical Exam Const Vital Signs: 02/28/25 13:28 02/28/25 13:30 Temperature 98.9 F Temperature Source Oral Pulse Rate 83 Respiratory Rate 18 Respiratory Effort Normal Respiratory Pattern Normal Blood Pressure 141/77 H Blood Pressure Mean 98 Pulse Ox 100 Oxygen Delivery Method Room Air Positive well nourished and well developed General Appearance ED: well developed, NAD and pallor; Negative for cyanotic or diaphoretic HEENT Reports dry mucous membranes HEENT Narrative: Head is atraumatic normocephalic. Ears normal. Nares patent. Mouth ED: Yes dry mucous membranes Mouth: dry mucous membranes Eyes EOMs intact bilaterally General Eye ED: Negative for pale conjunctiva or scleral icterus Neck no lymphadenopathy, supple and no JVD Resp normal respiratory effort and clear to auscultation bilaterally Cardio regular rate, regular rhythm, S1 normal heart sound, S2 normal heart sound and no murmurs GI normal to inspection, nondistended, normoactive bowel sounds, non-tender, non-distended and no masses; Negative for hepatosplenomegaly Back/Spine no CVA tenderness Extremity Extremity Narrative: Patient has limited range of motion of lower extremity exam CP. She has abrasions with hemorrhage dorsum of the right left foot. There is no evidence of infection. Neuro oriented x3 and CN's II-XII intact bilaterally Sensorium / Orientation: alert Psych Psych Narrative: Patient is disheveled. She has a depressed affect. Slow psychomotor skills. Skin General Skin Exam: pallor; Negative for jaundice MDM MDM MDM Narrative Medical decision making narrative: weatherization operations manager was consulted to determine if she can be admitted from ER to facility. Baseline blood work was obtained. Lab Data Attestation: I reviewed the patient's lab results. Lab results narrative: CBC reveals neutropenia. Competence of metabolic panel is remarked for glucose of 58. Labs: Laboratory Results - last 24 hr 02/28/25 14:10 WBC 3.6 L RBC 4.27 Hgb 13.2 Hct 39.6 MCV 92.7 MCH 30.9 MCHC 33.3 RDW Std Deviation 41.2 RDW Coeff of Lee 12.1 Plt Count 205 MPV 9.8 Immature Gran % (Auto) 0.300 Neut % (Auto) 61.9 Lymph % (Auto) 24.9 [place] % (Auto) 10.9 H Eos % (Auto) 1.4 Baso % (Auto) 0.6 Absolute Neuts (auto) 2.2 Absolute Lymphs (auto) 0.89 Nucleated RBC % 0 Sodium 143 Potassium 3.7 Chloride 110 H Carbon Dioxide 24.8 Anion Gap 8 BUN 10 Creatinine 0.78 Estim Creat Clear Calc 69.45 Est GFR (MDRD) Non-Af 96 BUN/Creatinine Ratio 13.1 Glucose 58 L Calcium 8.9 Total Bilirubin 0.52 AST 23 ALT 11 Alkaline Phosphatase 74 Total Protein 6.3 Albumin 4.2 Globulin 2.2 Albumin/Globulin Ratio 1.9 Management Discussion w/another healthcare provider: Hospitalist (Case discussed with hospitalist Dr. Grey. ) and line assembly utility worker/Case management (Apparently she is living with an ex fianc?, 2 friends multiple cats and dogs. The house is in disarray with animal feces throughout. Condition is not livable per her telephonic case manager. Apparently the ex fianc? and friends are living offer her food stamps. They are not caring for her. She has not bee) Discharge Plan Triage Chief Complaint: General Illness ED Provider: Flash Gee Dx/Rx/DC Orders Clinical Impression: Adult failure to thrive, Cerebral palsy, Depression, Post traumatic stress disorder (PTSD) Prescriptions: No Action albuterol sulfate 2.5 MG/3 ML solution for nebulization 2.5 mg inhalation Q4H PRN PRN (Reason: Sob &/Or Wheezing) albuterol sulfate 90 mcg/actuation HFA aerosol inhaler 2 puff inhalation Q4H PRN (Reason: shortness of breath or wheezing) omeprazole 40 mg capsule,delayed release(DR/EC) 40 mg PO DAILY risperidone 0.5 mg tablet 0.5 mg PO DAILY Primary Care Provider: Mganolia Gross Referrals: Magnolia Gross MD [Primary Care Provider] - Print Language: Uzbek Disposition Disposition: Acute Care [facility]
[2025-02-28 14:19] LABS: Absolute Lymphocyte Count 0.89 X10^3/uL (0.83-4.51); Absolute Neutrophil Count 2.2 X10^3/uL (2.0-7.7); Basophil# 0.02 X10^3/uL; Basophil% 0.6 % (0-1); Eosinophil# 0.05 X10^3/uL; Eosinophils% 1.4 % (0-5); Hematocrit 39.6 % (37-47); Hemoglobin 13.2 g/dL (12.0-15.0); Lymphocyte # 0.89 X10^3/ul (0.83-4.51); Lymphocyte % 24.9 % (19-41); Mean Corp Hgb Conc 33.3 g/dL (32-36); Mean Corpuscular Hgb 30.9 pg (27.0-32.0); Mean Corpuscular Volume 92.7 fL (81-99); Mean Platelet Vol. 9.8 fl (6.2-12.0); Monocyte# 0.39 X10^3/uL; Monocyte% 10.9 % (0-10); NRBC Flagged by Analyzer 0 % (0-5); Neutrophil # 2.22 X10^3/uL (2.7-7.7); Neutrophil % 61.9 % (47-70); Platelet Count 205 K/mm3 (150-450); RBC Distribution Width CV 12.1 % (11.6-14.6); RBC Distribution Width SD 41.2 fl (35.1-43.9); Red Blood Count 4.27 M/mm3 (4.2-5.4); White Blood Count 3.6 K/mm3 (4.4-11.0)
[2025-02-28 14:40] LABS: ALB/GLOB Ratio 1.9 RATIO (0.9-2.4); AST(SGOT) 23 U/L (<=31); Alanine Aminotransfer ALT/SGPT 11 U/L (<=34); Albumin, Serum 4.2 g/dL (3.5-5.0); Alkaline Phosphatase 74 U/L (35-104); Anion Gap 8 (5-15); BUN 10 mg/dL (4-19); BUN/Creat Ratio 13.1 RATIO (10-20); Calcium,Total 8.9 mg/dL (7.6-11.0); Carbon Dioxide 24.8 mmol/L (21.0-32.0); Chloride 110 mmol/L (98-108); Creatinine, Serum 0.78 mg/dL (0.70-1.20); EST Glomerular Filtration Rate 96 (>60); Estimated Creatinine Clearance 69.45 ml/min (50-250); Globulin 2.2 g/dL (2.2-4.2); Glucose 58 mg/dL (70-99); Potassium 3.7 mmol/L (3.3-5.1); Protein, Total 6.3 g/dL (5.9-8.4); Sodium Level 143 mmol/L (133-145); Total Bilirubin 0.52 mg/dL (0.00-1.30)
[2025-02-28 15:28] VITALS: BP 162/79; PULSE 98; RESP 12; TEMP 36.8; O2SAT 100
--- NOTE | 2025-02-28 16:21 | CM.ED ---
Addendum entered by Tabatha Esteban 03/02/25 10:30: Social Work Correction: [facility] was contacted for child in the home. WILLIE Duggan, NELIDA Original Note: Social Work [facility] case advocate, Lela Barlow, present with patient in ED and met with SW in office. Lela stated that patient called her stating she wanted out of her home and placed in a fdc. Lela stated that patient feels that she is not safe in her currently living situation and is unable to return to her home. JESSE and Lela met with patient in patients room. Patient stated again that she did not feel safe, that she was looking out for herself and wanted to be admitted to a fdc as she is unable to care for herself. Patients states that she lives with ex fiance and two friends, and a 10 year old child. Noone in the home helps patient with bathing, dressing or eating. Patient reports she has to wake people up to ask for something to eat, that she attempts to bath herself but does not feel she is able to get herself clean. Patient reports to 4 dogs and three cats that urinate and defecate in the home with noone cleaning up the after the animals. Patient also reports to bed bugs. Patient states that the home she has been living in is hers, that the heat, water and electric are in her name, that she pays all the bills and everyone uses her food stamps. Lela, from [facility], was updated that patient was being admitted. APS referral to be made tomorrow during business hours. WILLIE Duggan, NELIDA
[2025-02-28 16:37] LABS: Bedside Glucose 91 mg/dL (74-106)
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
--- NOTE | 2025-02-28 16:55 | ED.RN ---
PT. PLACED IN DECONTAMINATION ROOM AND BELONGINGS DOUBLE BAGGED.
[2025-02-28 17:08] VITALS: BMI 20.5
[2025-02-28 17:37] VITALS: BP 109/75; PULSE 58; RESP 18; TEMP 36.4; O2SAT 98
[2025-02-28] MEDS: RisperiDONE 0.5 MG Tablet PO (18:36)
[2025-02-28] MEDS: 0.9% Normal Saline (1000mL) 1,000 ML 125 ML IV (18:36)
[2025-02-28] MEDS: Ipratropium/Albuterol Sulfate 3 ML AMPUL.NEB INHALATION (19:53)
[2025-02-28 19:54] VITALS: PULSE 69; RESP 18; O2SAT 100
[2025-02-28 20:21] VITALS: BP 95/55; PULSE 71; RESP 14; TEMP 36.9; O2SAT 100
[2025-03-01 02:37] VITALS: BP 89/56; PULSE 58; RESP 12; TEMP 36.5; O2SAT 100
[2025-03-01] MEDS: 0.9% Normal Saline (1000mL) 1,000 ML 125 ML IV (02:41)
[2025-03-01 08:02] LABS: Absolute Lymphocyte Count 2.25 X10^3/uL (0.83-4.51); Absolute Neutrophil Count 2.1 X10^3/uL (2.0-7.7); Basophil# 0.03 X10^3/uL; Basophil% 0.6 % (0-1); Eosinophil# 0.14 X10^3/uL; Eosinophils% 2.8 % (0-5); Hematocrit 36.2 % (37-47); Hemoglobin 11.9 g/dL (12.0-15.0); Lymphocyte # 2.25 X10^3/ul (0.83-4.51); Lymphocyte % 44.4 % (19-41); Mean Corp Hgb Conc 32.9 g/dL (32-36); Mean Corpuscular Hgb 30.7 pg (27.0-32.0); Mean Corpuscular Volume 93.5 fL (81-99); Mean Platelet Vol. 9.9 fl (6.2-12.0); Monocyte% 11.8 % (0-10); NRBC Flagged by Analyzer 0 % (0-5); Neutrophil # 2.05 X10^3/uL (2.7-7.7); Neutrophil % 40.4 % (47-70); Platelet Count 210 K/mm3 (150-450); RBC Distribution Width CV 12.2 % (11.6-14.6); RBC Distribution Width SD 41.9 fl (35.1-43.9); Red Blood Count 3.87 M/mm3 (4.2-5.4); White Blood Count 5.1 K/mm3 (4.4-11.0)
[2025-03-01 08:41] VITALS: BP 99/55; PULSE 72; RESP 16; TEMP 36.5; O2SAT 96
[2025-03-01 08:41] LABS: Anion Gap 8 (5-15); BUN 7 mg/dL (4-19); BUN/Creat Ratio 12.5 RATIO (10-20); Calcium,Total 7.9 mg/dL (7.6-11.0); Carbon Dioxide 19.8 mmol/L (21.0-32.0); Chloride 114 mmol/L (98-108); Creatinine, Serum 0.58 mg/dL (0.70-1.20); EST Glomerular Filtration Rate 115 (>60); Glucose 98 mg/dL (70-99); Potassium 3.5 mmol/L (3.3-5.1); Sodium Level 142 mmol/L (133-145)
[2025-03-01] MEDS: Enoxaparin 40 MG/0.4 ML Syringe SC (08:43)
[2025-03-01] MEDS: Pantoprazole Sodium 40 MG Tablet PO (08:43)
[2025-03-01 09:13] VITALS: BMI 21.2
--- NOTE | 2025-03-01 09:13 | CASEMGMT ---
Discharge Planning A list of?SNF providers including quality and resource use data and consistent with the patient's preferred geographic region, medical needs, and insurance network was created in CarePort Guide.? This list was provided to the SW. Heather Cunningham Discharge Planning Asst.
--- NOTE | 2025-03-01 09:18 | PCM.PN.HOSP ---
Reason for Visit Reason for Visit: Diagnoses Adult failure to thrive (02/28/25) Subjective Subjective Saw patient at bedside this morning. Patient was laying back comfortably in bed, in no acute distress. She answered questions with short appropriate responses and denied any acute pain or discomfort today. No other acute concerns at this time. Objective Data Objective Data Vital Signs: Vital Signs Temp Pulse Resp BP Pulse Ox O2 Del Method 97.7 F L 72 16 99/55 L 96 Room Air 03/01/25 08:41 03/01/25 08:41 03/01/25 08:41 03/01/25 08:41 03/01/25 08:41 03/01/25 09:09 Oxygen Delivery Method Room Air Weight: 49.4 kg Body Mass Index (BMI) 20.5 Intake & Output: Intake and Output for Last 24 Hours 02/27/25 02/28/25 03/01/25 23:59 23:59 23:59 Intake Total 750 / 1080 1480 / 1480 Output Total 650 / 650 Balance 750 / 830 830 / 830 Lab / Micro Data 03/01/25 07:26 03/01/25 07:26 Labs: Laboratory Results - last 24 hr 02/28/25 14:10: WBC 3.6 L, RBC 4.27, Hgb 13.2, Hct 39.6, MCV 92.7, MCH 30.9, MCHC 33.3, RDW Std Deviation 41.2, RDW Coeff of Lee 12.1, Plt Count 205, MPV 9.8, Immature Gran % (Auto) 0.300, Neut % (Auto) 61.9, Lymph % (Auto) 24.9, [place] % (Auto) 10.9 H, Eos % (Auto) 1.4, Baso % (Auto) 0.6, Absolute Neuts (auto) 2.2, Absolute Lymphs (auto) 0.89, Nucleated RBC % 0, Sodium 143, Potassium 3.7, Chloride 110 H, Carbon Dioxide 24.8, Anion Gap 8, BUN 10, Creatinine 0.78, Estim Creat Clear Calc 69.45, Est GFR (MDRD) Non-Af 96, BUN/Creatinine Ratio 13.1, Glucose 58 L, Calcium 8.9, Total Bilirubin 0.52, AST 23, ALT 11, Alkaline Phosphatase 74, Total Protein 6.3, Albumin 4.2, Globulin 2.2, Albumin/Globulin Ratio 1.9 02/28/25 16:17: POC Glucose 91 03/01/25 07:26: WBC 5.1, RBC 3.87 L, Hgb 11.9 L, Hct 36.2 L, MCV 93.5, MCH 30.7, MCHC 32.9, RDW Std Deviation 41.9, RDW Coeff of Lee 12.2, Plt Count 210, MPV 9.9, Immature Gran % (Auto) 0.000, Neut % (Auto) 40.4 L, Lymph % (Auto) 44.4 H, [place] % (Auto) 11.8 H, Eos % (Auto) 2.8, Baso % (Auto) 0.6, Absolute Neuts (auto) 2.1, Absolute Lymphs (auto) 2.25, Nucleated RBC % 0, Sodium 142, Potassium 3.5, Chloride 114 H, Carbon Dioxide 19.8 L, Anion Gap 8, BUN 7, Creatinine 0.58 L, Estim Creat Clear Calc 93.40, Est GFR (MDRD) Non-Af 115, BUN/Creatinine Ratio 12.5, Glucose 98, Calcium 7.9 Physical Exam Const alert, oriented x3, no apparent distress and average body habitus General Appearance: cooperative and comfortable HEENT normocephalic, head/scalp atraumatic, hearing grossly normal bilaterally and nasal mucous membranes and turbinates normal Eyes PERRL, EOMs intact bilaterally and conjunctivae normal Neck full ROM Chest inspection of chest normal Resp normal respiratory effort, normal air movement, no use of accessory muscles and clear to auscultation bilaterally Cardio regular rate, regular rhythm, no murmurs and peripheral pulses 2+ throughout GI normal to inspection, nondistended, normoactive bowel sounds, soft to palpation, non-tender and non-distended Back/Spine normal ROM Extremity normal to inspection, full ROM and no pedal edema Skin Skin Narrative: Superficial erythematous bullae like rash over dorsum of feet noted, stable. Neuro Neuro Narrative: Some chronic contractures of lower extremities noted. Psych mental status grossly normal Psych Narrative: Flat affect. Assessment & Plan Assessment/Plan (1) Adult failure to thrive: PLAN: Plan Patient is a 45-year-old female who presented to [facility] ED on 02/28/2025 with failure to thrive. 1. Debility with adult failure to thrive in setting of cerebral palsy ? PT/OT/case management following. Patient with history of cerebral palsy, has some chronic contractures of bilateral legs. Referred to hospital by keycase assembler who noted she was not receiving any help from other people at home and she is unable to take care of herself. Will likely need SNF placement on discharge, appreciate therapy recommendations. 2. Rash on feet ? Wound care following. Erythematous, bullous rash noted on dorsum of her feet that is noted to be chronic, etiology unclear. Appreciate wound care recommendations. 3. Bipolar 1 disorder and PTSD ? Stable. Continue home Risperdal. 4. GERD ? Continue home PPI. DVT prophylaxis: Lovenox CODE STATUS: Full code, verified Expected disposition: Likely SNF, 1 to 2 days Total clinical time spent by myself addressing the patient's medical issues, reviewing all the data, and collaborating with patient's care team: 35 minutes. Charges/Coding Visit Charges Inpatient E&M: 61424 Subs Hosp L2
--- NOTE | 2025-03-01 10:42 | CM.ED ---
Social work Per request from Tabatha KRAUSE in ED handoff, this SW called [facility] and spoke with Rosanne (ph: [phone]). Rosanne stated already being aware of the situation, but thanked this SW for calling. No other needs identified at this time. Elzbieta Lockett, INGREDIENT SCALER, LEATHER CRAFTER
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
[2025-03-01 14:18] VITALS: BP 104/53; PULSE 76; RESP 16; TEMP 36.5; O2SAT 98
--- NOTE | 2025-03-01 14:44 | CASEMGMT ---
Addendum entered by Heather Cunningham 03/02/25 09:21: [facility] has declined. SW updated. Heather Cunningham DC Planning Asst. Addendum entered by Heather Cunningham 03/02/25 08:45: [facility] has declined. left for [facility] to check on status of referral. Heather Cunningham DC Planning Asst. Original Note: Discharge Planning Referral sent to both [facility] and [facility]. [facility] has declined. Awaiting response from [facility]. Heather Cunningham DC Planning Asst.
--- NOTE | 2025-03-01 15:54 | CASEMGMT ---
Met with patient to complete GRAHAM form. GRAHAM form explained to patient who voiced understanding and signed form. Original form placed in pt?s chart and copy provided to patient. Heather Cunningham, Discharge Planning Asst
--- NOTE | 2025-03-01 16:00 | CHAPLAIN ---
Type of Pastoral Visit _x__ Initial Visit ___ Follow-up Visit ___ On-call Visit ___ General Patient Visit ___ Spiritual Assessment ___ Family Conference ___ Bereavement ___ Rapid Response ___ Code Blue ___ Other (describe below) Pastoral Care Referral From _x__ Patient ___ Family ___ Nurse ___ Physician ___ Electrophysiology Technologist ___ Production Service Manager ___ Other (describe below) Sacrament/Intervention _x__ Active listening ___ Anointing ___ Yazdanism ___ Bereavement ___ Communion ___ [place]ney exploration ___ ___ Life review ___ Prayer ___ Reconciliation ___ Sacrament of Sick _x__ Supportive presence ___ Wedding ___ Other (describe below) Pastoral Comments patient answered questions with simple words and phrases; pt is from a [place] and states that she is not really happy there; pt denies needs, concerns, or desire for company or prayers
[2025-03-01] MEDS: RisperiDONE 0.5 MG Tablet PO (16:57)
[2025-03-01 20:04] VITALS: BP 114/67; PULSE 65; RESP 16; TEMP 36.7; O2SAT 97
[2025-03-01 22:43] VITALS: BP 108/61; PULSE 68; RESP 16; TEMP 36.7; O2SAT 98
[2025-03-01] MEDS: Acetaminophen 325 MG Tablet 650 MG PO (22:50)
[2025-03-02 04:36] VITALS: BP 106/66; PULSE 67; RESP 16; TEMP 37.1; O2SAT 98
[2025-03-02 06:41] VITALS: PULSE 70; RESP 16
[2025-03-02] MEDS: Ipratropium/Albuterol Sulfate 3 ML AMPUL.NEB INHALATION (06:41)
[2025-03-02 08:33] VITALS: BP 98/59; PULSE 55; RESP 18; TEMP 36.4; O2SAT 100
[2025-03-02] MEDS: Enoxaparin 40 MG/0.4 ML Syringe SC (08:35)
[2025-03-02] MEDS: Pantoprazole Sodium 40 MG Tablet PO (08:35)
--- NOTE | 2025-03-02 10:06 | CASEMGMT ---
Addendum entered by Heather Cunningham 03/02/25 11:00: [facility] has accepted and notified that they are foc. Heather Cunningham DC Planning Asst. Addendum entered by Heather Cunningham 03/02/25 10:24: [facility] has declined. Heather Cunningham DC Planning Asst. Original Note: Discharge Planning Referral sent to [facility] and [facility]. Heather Cunningham DC Planning Asst.
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
--- NOTE | 2025-03-02 10:30 | PN.HOSP_ITS ---
Reason for Visit Reason for Visit: Diagnoses Adult failure to thrive (02/28/25) Subjective Subjective Saw patient at bedside this morning. Patient appeared similar today to yesterday. Denied any new concerns this morning. Objective Data Objective Data Vital Signs: Vital Signs Temp Pulse Resp BP Pulse Ox O2 Del Method 97.6 F L 55 L 18 98/59 L 100 Room Air 03/02/25 08:33 03/02/25 08:33 03/02/25 08:33 03/02/25 08:33 03/02/25 08:33 03/02/25 08:47 Oxygen Delivery Method Room Air Weight: 50.944 kg Body Mass Index (BMI) 21.2 Intake & Output: Intake and Output for Last 24 Hours 02/28/25 03/01/25 03/02/25 23:59 23:59 23:59 Intake Total 750 / 1080 2780 / 2780 Output Total 1350 / 1350 300 / 300 Balance 750 / 830 1430 / 1430 -300 / -300 Lab / Micro Data 03/01/25 07:26 03/01/25 07:26 Physical Exam Const alert, oriented x3, no apparent distress and average body habitus General Appearance: cooperative and comfortable HEENT normocephalic, head/scalp atraumatic, hearing grossly normal bilaterally and nasal mucous membranes and turbinates normal Eyes PERRL, EOMs intact bilaterally and conjunctivae normal Neck full ROM Chest inspection of chest normal Resp normal respiratory effort, normal air movement, no use of accessory muscles and clear to auscultation bilaterally Cardio regular rate, regular rhythm, no murmurs and peripheral pulses 2+ throughout GI normal to inspection, nondistended, normoactive bowel sounds, soft to palpation, non-tender and non-distended Back/Spine normal ROM Extremity normal to inspection, full ROM and no pedal edema Skin Skin Narrative: Superficial erythematous bullae like rash over dorsum of feet noted, stable. Neuro Neuro Narrative: Some chronic contractures of lower extremities noted. Psych mental status grossly normal Psych Narrative: Flat affect. Assessment & Plan Assessment/Plan (1) Adult failure to thrive: PLAN: Plan Patient is a 45-year-old female who presented to [facility] ED on 02/28/2025 with failure to thrive. 1. Debility with adult failure to thrive in setting of cerebral palsy ? PT/OT/case management following. Patient with history of cerebral palsy, has some chronic contractures of bilateral legs. Referred to hospital by disease case manager rn who noted she was not receiving any help from other people at home and she is unable to take care of herself. Will need SNF placement on discharge but unfortunately PASRR needs to be completed first and this will likely keep the patient in the hospital for the next several days. 2. Rash on feet ? Wound care following. Erythematous, bullous rash noted on dorsum of her feet that is noted to be chronic, etiology unclear. Appreciate wound care recommendations. 3. Bipolar 1 disorder and PTSD ? Stable. Continue home Risperdal. 4. GERD ? Continue home PPI. 5. Bedbug infestation ? Patient found to have bedbugs on admit. Maintain isolation precautions. DVT prophylaxis: Lovenox CODE STATUS: Full code, verified Expected disposition: SNF, medically ready for discharge on 03/01, awaiting placement Total clinical time spent by myself addressing the patient's medical issues, reviewing all the data, and collaborating with patient's care team: 35 minutes. Charges/Coding Visit Charges Inpatient E&M: 40943 Subs Hosp L2
--- NOTE | 2025-03-02 11:08 | CASEMGMT ---
Social Work- Pt has accepting facility; [facility]. SW submitted PASRR and additional supporting documentation. Plan: [facility]; precert to be started when level II completed. NELIDA Andrews
[2025-03-02] MEDS: Acetaminophen 325 MG Tablet 650 MG PO (12:06)
[2025-03-02 14:08] VITALS: BP 116/65; PULSE 74; RESP 16; TEMP 36.8; O2SAT 100
--- NOTE | 2025-03-02 15:02 | CASEMGMT ---
Social Work- SW completed SDOH. SW provided printables for transportation, food, 180, and WHIRE card. Pt reports that she won't need them because she is going to SNF, but allowed SW to leave materials. Pt expressed concern about getting chair from home. Pt reports that she doesn't have anyone to assist. [facility] asked about any availability to assist. [place] continue to follow for needs. NELIDA Andrews
[2025-03-02] MEDS: RisperiDONE 0.5 MG Tablet PO (16:43)
[2025-03-02] MEDS: Senna Tablet 1 TABLET PO (17:42)
[2025-03-02 20:44] VITALS: BP 99/52; PULSE 68; RESP 16; TEMP 36.7; O2SAT 98
[2025-03-03 02:58] VITALS: BP 101/49; PULSE 60; RESP 14; TEMP 36.6; O2SAT 97
[2025-03-03 07:05] LABS: Anion Gap 8 (5-15); BUN 16 mg/dL (4-19); BUN/Creat Ratio 22.6 RATIO (10-20); Calcium,Total 8.2 mg/dL (7.6-11.0); Carbon Dioxide 23.5 mmol/L (21.0-32.0); Chloride 108 mmol/L (98-108); Creatinine, Serum 0.69 mg/dL (0.70-1.20); EST Glomerular Filtration Rate 110 (>60); Estimated Creatinine Clearance 78.51 ml/min (50-250); Glucose 87 mg/dL (70-99); Potassium 3.9 mmol/L (3.3-5.1); Sodium Level 139 mmol/L (133-145)
[2025-03-03 07:23] LABS: Hematocrit 36.7 % (37-47); Hemoglobin 12.5 g/dL (12.0-15.0); Mean Corp Hgb Conc 34.1 g/dL (32-36); Mean Corpuscular Hgb 32.1 pg (27.0-32.0); Mean Corpuscular Volume 94.3 fL (81-99); Mean Platelet Vol. 10.3 fl (6.2-12.0); Platelet Count 224 K/mm3 (150-450); RBC Distribution Width CV 11.9 % (11.6-14.6); RBC Distribution Width SD 41.8 fl (35.1-43.9); Red Blood Count 3.89 M/mm3 (4.2-5.4); White Blood Count 5.4 K/mm3 (4.4-11.0)
[2025-03-03 09:58] VITALS: BP 104/65; PULSE 67; RESP 18; TEMP 36.6; O2SAT 100
[2025-03-03] MEDS: Enoxaparin 40 MG/0.4 ML Syringe SC (10:26)
[2025-03-03] MEDS: Pantoprazole Sodium 40 MG Tablet PO (10:26)
[2025-03-03] MEDS: Polyethylene Glycol 3350 17 GM PACKET PO (10:28)
[2025-03-03] MEDS: Senna Tablet 1 TABLET PO ×2 (10:28→22:20)
[2025-03-03 10:59] VITALS: O2SAT 100
--- NOTE | 2025-03-03 11:27 | PCM.PN.HOSP ---
Reason for Visit Reason for Visit: Diagnoses Adult failure to thrive (02/28/25) Subjective Subjective Saw patient at bedside this morning. Patient was laying back comfortably in bedside chair and in no acute distress. Appeared similar to previous days. No new concerns today. Objective Data Objective Data Vital Signs: Vital Signs Temp Pulse Resp BP Pulse Ox O2 Del Method 97.9 F 67 18 104/65 100 Room Air 03/03/25 09:58 03/03/25 09:58 03/03/25 09:58 03/03/25 09:58 03/03/25 10:59 03/03/25 10:59 Oxygen Delivery Method Room Air Weight: 50.944 kg Body Mass Index (BMI) 21.2 Intake & Output: Intake and Output for Last 24 Hours 03/01/25 03/02/25 03/03/25 23:59 23:59 23:59 Intake Total 2780 / 2780 350 / 350 Output Total 1350 / 1350 800 / 1300 500 / 500 Balance 1430 / 1430 -800 / -950 -150 / -150 Lab / Micro Data 03/03/25 05:45 03/03/25 05:45 Labs: Laboratory Results - last 24 hr 03/03/25 05:45: WBC 5.4, RBC 3.89 L, Hgb 12.5, Hct 36.7 L, MCV 94.3, MCH 32.1 H, MCHC 34.1, RDW Std Deviation 41.8, RDW Coeff of Lee 11.9, Plt Count 224, MPV 10.3, Sodium 139, Potassium 3.9, Chloride 108, Carbon Dioxide 23.5, Anion Gap 8, BUN 16, Creatinine 0.69 L, Estim Creat Clear Calc 78.51, Est GFR (MDRD) Non-Af 110, BUN/Creatinine Ratio 22.6 H, Glucose 87, Calcium 8.2 Physical Exam Const alert, oriented x3, no apparent distress and average body habitus General Appearance: cooperative and comfortable HEENT normocephalic, head/scalp atraumatic, hearing grossly normal bilaterally and nasal mucous membranes and turbinates normal Eyes PERRL, EOMs intact bilaterally and conjunctivae normal Neck full ROM Chest inspection of chest normal Resp normal respiratory effort, normal air movement, no use of accessory muscles and clear to auscultation bilaterally Cardio regular rate, regular rhythm, no murmurs and peripheral pulses 2+ throughout GI normal to inspection, nondistended, normoactive bowel sounds, soft to palpation, non-tender and non-distended Back/Spine normal ROM Extremity normal to inspection, full ROM and no pedal edema Skin Skin Narrative: Superficial erythematous bullae like rash over dorsum of feet noted, stable. Neuro Neuro Narrative: Some chronic contractures of lower extremities noted. Psych mental status grossly normal Psych Narrative: Flat affect. Assessment & Plan Assessment/Plan (1) Adult failure to thrive: PLAN: Plan Patient is a 45-year-old female who presented to [facility] ED on 02/28/2025 with failure to thrive. 1. Debility with adult failure to thrive in setting of cerebral palsy ? PT/OT/case management following. Patient with history of cerebral palsy, has some chronic contractures of bilateral legs. Referred to hospital by correctional casework specialist who noted she was not receiving any help from other people at home and she is unable to take care of herself. Will need SNF placement on discharge but unfortunately PASRR needs to be completed first and this will likely keep the patient in the hospital for the next several days. 2. Rash on feet ? Erythematous, bullous rash noted on dorsum of her feet that is noted to be chronic, etiology unclear. Has remained stable during hospitalization, no need for wound care services at this time. 3. Mild constipation ? Patient reported not having had a bowel movement since hospitalization on 03/03. Added senna scheduled and MiraLAX as needed to regimen. Monitor. 4. Bedbug infestation ? Patient found to have bedbugs on admit. Maintain isolation precautions. 5. Bipolar 1 disorder and PTSD ? Stable. Continue home Risperdal. 6. GERD ? Continue home PPI. DVT prophylaxis: Lovenox CODE STATUS: Full code, verified Expected disposition: SNF, medically ready for discharge on 03/01, awaiting placement Total clinical time spent by myself addressing the patient's medical issues, reviewing all the data, and collaborating with patient's care team: 35 minutes. Charges/Coding Visit Charges Inpatient E&M: 43026 Subs Hosp L2
[2025-03-03 16:47] VITALS: BP 110/69; PULSE 72; RESP 18; TEMP 36.7; O2SAT 99; BMI 21.5
[2025-03-03] MEDS: RisperiDONE 0.5 MG Tablet PO (16:49)
[2025-03-03 22:06] VITALS: BP 101/60; PULSE 63; RESP 16; TEMP 36.8; O2SAT 98
[2025-03-04 06:32] VITALS: BP 102/55; PULSE 56; RESP 16; TEMP 36.4; O2SAT 96
--- NOTE | 2025-03-04 08:37 | PCM.PN.HOSP ---
Reason for Visit Reason for Visit: Diagnoses Adult failure to thrive (02/28/25) Subjective Subjective Saw patient at bedside this morning. Appeared similar today to previous days. Denied having any bowel movements yet but states that she is hungry and does not have any abdominal discomfort. No new concerns today. Objective Data Objective Data Vital Signs: Vital Signs Temp Pulse Resp BP Pulse Ox O2 Del Method 97.6 F L 56 L 16 102/55 L 96 Room Air 03/04/25 06:32 03/04/25 06:32 03/04/25 06:32 03/04/25 06:32 03/04/25 06:32 03/04/25 06:32 Oxygen Delivery Method Room Air Weight: 51.71 kg Body Mass Index (BMI) 21.5 Intake & Output: Intake and Output for Last 24 Hours 03/02/25 03/03/25 03/04/25 23:59 23:59 23:59 Intake Total 1050 / 1050 Output Total 800 / 1300 950 / 950 400 / 400 Balance -800 / -950 100 / 100 -400 / -400 Lab / Micro Data 03/03/25 05:45 03/03/25 05:45 Physical Exam Const alert, oriented x3, no apparent distress and average body habitus General Appearance: cooperative and comfortable HEENT normocephalic, head/scalp atraumatic, hearing grossly normal bilaterally and nasal mucous membranes and turbinates normal Eyes PERRL, EOMs intact bilaterally and conjunctivae normal Neck full ROM Chest inspection of chest normal Resp normal respiratory effort, normal air movement, no use of accessory muscles and clear to auscultation bilaterally Cardio regular rate, regular rhythm, no murmurs and peripheral pulses 2+ throughout GI normal to inspection, nondistended, normoactive bowel sounds, soft to palpation, non-tender and non-distended Back/Spine normal ROM Extremity normal to inspection, full ROM and no pedal edema Skin Skin Narrative: Superficial erythematous bullae like rash over dorsum of feet noted, stable. Neuro Neuro Narrative: Some chronic contractures of lower extremities noted. Psych mental status grossly normal Psych Narrative: Flat affect. Assessment & Plan Assessment/Plan (1) Adult failure to thrive: PLAN: Plan Patient is a 45-year-old female who presented to [facility] ED on 02/28/2025 with failure to thrive. 1. Debility with adult failure to thrive in setting of cerebral palsy ? PT/OT/case management following. Patient with history of cerebral palsy, has some chronic contractures of bilateral legs. Referred to hospital by senior case manager who noted she was not receiving any help from other people at home and she is unable to take care of herself. Needs SNF placement on discharge and has been accepted to [facility], but unfortunately PASRR needs to be completed first and this will likely keep the patient in the hospital for the next several days. 2. Rash on feet ? Erythematous, bullous rash noted on dorsum of her feet that is noted to be chronic, etiology unclear. Has remained stable during hospitalization, no need for wound care services at this time. 3. Mild constipation ? Patient reports not having had a bowel movement since admission. Denies any abdominal pain and does feel hungry with good p.o. intake. Continue senna scheduled and MiraLAX as needed. 4. Bedbug infestation ? Patient found to have bedbugs on admit. Maintain isolation precautions. 5. Bipolar 1 disorder and PTSD ? Stable. Continue home Risperdal. 6. GERD ? Continue home PPI. DVT prophylaxis: Lovenox CODE STATUS: Full code, verified Expected disposition: SNF, medically ready for discharge on 03/01, awaiting placement Total clinical time spent by myself addressing the patient's medical issues, reviewing all the data, and collaborating with patient's care team: 35 minutes. Charges/Coding Visit Charges Inpatient E&M: 52893 Subs Hosp L2
[2025-03-04 09:12] VITALS: BP 100/60; PULSE 60; RESP 16; TEMP 37.2; O2SAT 100
[2025-03-04] MEDS: Pantoprazole Sodium 40 MG Tablet PO (09:19)
[2025-03-04] MEDS: Senna Tablet 1 TABLET PO ×2 (09:19→23:38)
[2025-03-04] MEDS: Enoxaparin 40 MG/0.4 ML Syringe SC (09:20)
[2025-03-04] MEDS: Acetaminophen 325 MG Tablet 650 MG PO (09:20)
[2025-03-04] MEDS: Ipratropium/Albuterol Sulfate 3 ML AMPUL.NEB INHALATION (13:18)
[2025-03-04 13:19] VITALS: RESP 18
[2025-03-04 15:00] VITALS: BP 103/58; PULSE 70; RESP 16; TEMP 36.7; O2SAT 97
[2025-03-04] MEDS: RisperiDONE 0.5 MG Tablet PO (17:26)
[2025-03-04 23:29] VITALS: BP 115/72; PULSE 67; RESP 16; TEMP 37.2; O2SAT 99
[2025-03-05] MEDS: Menthol/Lanolin/Calamine/Znox 113 GM Tube 1 APPLIC TOPICAL ×3 (06:16→23:28)
[2025-03-05 06:17] VITALS: BP 98/55; PULSE 53; RESP 16; TEMP 36.1; O2SAT 99
[2025-03-05 06:58] LABS: Hematocrit 39.1 % (37-47); Hemoglobin 13.5 g/dL (12.0-15.0); Mean Corp Hgb Conc 34.5 g/dL (32-36); Mean Corpuscular Hgb 32.8 pg (27.0-32.0); Mean Corpuscular Volume 95.1 fL (81-99); Mean Platelet Vol. 10.1 fl (6.2-12.0); Platelet Count 239 K/mm3 (150-450); Red Blood Count 4.11 M/mm3 (4.2-5.4); White Blood Count 6.1 K/mm3 (4.4-11.0)
[2025-03-05 07:17] LABS: Anion Gap 10 (5-15); BUN 15 mg/dL (4-19); BUN/Creat Ratio 22.7 RATIO (10-20); Calcium,Total 8.5 mg/dL (7.6-11.0); Carbon Dioxide 21.7 mmol/L (21.0-32.0); Chloride 108 mmol/L (98-108); Creatinine, Serum 0.66 mg/dL (0.70-1.20); EST Glomerular Filtration Rate 111 (>60); Estimated Creatinine Clearance 82.08 ml/min (50-250); Glucose 89 mg/dL (70-99); Potassium 4.1 mmol/L (3.3-5.1); Sodium Level 140 mmol/L (133-145)
[2025-03-05 07:40] VITALS: PULSE 62; RESP 16; O2SAT 97
[2025-03-05] MEDS: Ipratropium/Albuterol Sulfate 3 ML AMPUL.NEB INHALATION ×2 (07:40→13:35)
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
--- NOTE | 2025-03-05 09:28 | WOUNDNOTE ---
wound photo: bilateral feet
--- NOTE | 2025-03-05 09:36 | PCM.PN.HOSP ---
Reason for Visit Reason for Visit: Diagnoses Adult failure to thrive (02/28/25) Subjective Subjective Saw patient at bedside this morning. Patient appeared similar today to previous days. No new concerns today. Objective Data Objective Data Vital Signs: Vital Signs Temp Pulse Resp BP Pulse Ox O2 Del Method 97 F L 62 16 98/55 L 97 Room Air 03/05/25 06:17 03/05/25 07:40 03/05/25 07:40 03/05/25 06:17 03/05/25 07:40 03/05/25 07:40 Oxygen Delivery Method Room Air Weight: 51.71 kg Body Mass Index (BMI) 21.5 Intake & Output: Intake and Output for Last 24 Hours 03/03/25 03/04/25 03/05/25 23:59 23:59 23:59 Intake Total 1050 / 1050 Output Total 950 / 950 1000 / 1000 400 / 400 Balance 100 / 100 -1000 / -1000 -400 / -400 Lab / Micro Data 03/05/25 06:15 03/05/25 06:15 Labs: Laboratory Results - last 24 hr 03/05/25 06:15: WBC Cancelled 03/05/25 06:15: WBC 6.1, Corrected WBC Cancelled, RBC Cancelled 03/05/25 06:15: RBC 4.11 L, Hgb Cancelled 03/05/25 06:15: Hgb 13.5, Hct Cancelled 03/05/25 06:15: Hct 39.1, MCV Cancelled 03/05/25 06:15: MCV 95.1, MCH Cancelled 03/05/25 06:15: MCH 32.8 H, MCHC Cancelled 03/05/25 06:15: MCHC 34.5, RDW Std Deviation Cancelled 03/05/25 06:15: RDW Std Deviation 42.0, RDW Coeff of Lee Cancelled 03/05/25 06:15: RDW Coeff of Lee 12.0, Plt Count Cancelled 03/05/25 06:15: Plt Count 239, MPV Cancelled 03/05/25 06:15: MPV 10.1, Diff Path Review Cancelled, Sodium 140, Potassium 4.1, Chloride 108, Carbon Dioxide 21.7, Anion Gap 10, BUN 15, Creatinine 0.66 L, Estim Creat Clear Calc 82.08, Est GFR (MDRD) Non-Af 111, BUN/Creatinine Ratio 22.7 H, Glucose 89, Calcium 8.5 Physical Exam Const alert, oriented x3, no apparent distress and average body habitus General Appearance: cooperative and comfortable HEENT normocephalic, head/scalp atraumatic, hearing grossly normal bilaterally and nasal mucous membranes and turbinates normal Eyes PERRL, EOMs intact bilaterally and conjunctivae normal Neck full ROM Chest inspection of chest normal Resp normal respiratory effort, normal air movement, no use of accessory muscles and clear to auscultation bilaterally Cardio regular rate, regular rhythm, no murmurs and peripheral pulses 2+ throughout GI normal to inspection, nondistended, normoactive bowel sounds, soft to palpation, non-tender and non-distended Back/Spine normal ROM Extremity normal to inspection, full ROM and no pedal edema Skin Skin Narrative: Superficial erythematous bullae like rash over dorsum of feet noted, stable. Neuro Neuro Narrative: Some chronic contractures of lower extremities noted. Psych mental status grossly normal Psych Narrative: Flat affect. Assessment & Plan Assessment/Plan (1) Adult failure to thrive: PLAN: Plan Patient is a 45-year-old female who presented to [facility] ED on 02/28/2025 with failure to thrive. 1. Debility with adult failure to thrive in setting of cerebral palsy ? PT/OT/case management following. Patient with history of cerebral palsy, has some chronic contractures of bilateral legs. Referred to hospital by case specialist who noted she was not receiving any help from other people at home and she is unable to take care of herself. Needs SNF placement on discharge and has been accepted to [facility], but unfortunately PASRR needs to be completed first and this will likely keep the patient in the hospital for the next several days. 2. Rash on feet ? Erythematous, bullous rash noted on dorsum of her feet that is noted to be chronic, etiology unclear. Has remained stable during hospitalization, no need for wound care services at this time. 3. Mild constipation ? Patient reports not having had a bowel movement since admission but states this is fairly normal for her. Denies any abdominal pain and does feel hungry with good p.o. intake. Continue senna scheduled and MiraLAX as needed. 4. Bedbug infestation ? Patient found to have bedbugs on admit. Maintain isolation precautions. 5. Bipolar 1 disorder and PTSD ? Stable. Continue home Risperdal. 6. GERD ? Continue home PPI. DVT prophylaxis: Lovenox CODE STATUS: Full code, verified Expected disposition: SNF, medically ready for discharge on 03/01, awaiting placement Total clinical time spent by myself addressing the patient's medical issues, reviewing all the data, and collaborating with patient's care team: 35 minutes. Charges/Coding Visit Charges Inpatient E&M: 56441 Subs Hosp L2
[2025-03-05 09:59] VITALS: BP 113/67; PULSE 73; RESP 16; TEMP 37.2; O2SAT 100
[2025-03-05] MEDS: Enoxaparin 40 MG/0.4 ML Syringe SC (10:08)
[2025-03-05] MEDS: Pantoprazole Sodium 40 MG Tablet PO (10:08)
[2025-03-05] MEDS: Senna Tablet 1 TABLET PO ×2 (10:16→23:27)
--- NOTE | 2025-03-05 10:57 | CASEMGMT ---
Social Work- SW called [facility], and left a voicemail regarding level II. SW checked HENS which is reporting DD status as started on 03/02/25. JESSE remains available to follow. NELIDA Andrews
[2025-03-05 14:01] VITALS: BP 112/71; PULSE 73; RESP 18; TEMP 36.9; O2SAT 100
--- NOTE | 2025-03-05 15:53 | CASEMGMT ---
Social Work- JESSE called [facility] to follow up on message regarding transportation of pt chair. Tanja reports that she will check back in with the transportation department to confirm ability and follow up with . JESSE remains available to follow. NELIDA Andrews
[2025-03-05] MEDS: RisperiDONE 0.5 MG Tablet PO (17:13)
[2025-03-06 03:41] VITALS: BP 102/52; PULSE 61; RESP 15; TEMP 36.9; O2SAT 97
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
[2025-03-06 09:25] VITALS: BP 97/55; PULSE 65; RESP 16; TEMP 36.7; O2SAT 100
[2025-03-06] MEDS: Enoxaparin 40 MG/0.4 ML Syringe SC (09:33)
[2025-03-06] MEDS: Pantoprazole Sodium 40 MG Tablet PO (09:34)
[2025-03-06] MEDS: Menthol/Lanolin/Calamine/Znox 113 GM Tube 1 APPLIC TOPICAL ×2 (09:34→21:48)
[2025-03-06] MEDS: Acetaminophen 325 MG Tablet 650 MG PO (09:40)
[2025-03-06] MEDS: oxyCODONE 5 MG Tablet PO (09:41)
[2025-03-06 13:45] VITALS: BP 90/47; PULSE 69; RESP 16; TEMP 36.5; O2SAT 98
[2025-03-06] MEDS: RisperiDONE 0.5 MG Tablet PO (16:52)
[2025-03-06 21:00] VITALS: BP 88/55; PULSE 60; RESP 15; TEMP 37.2; O2SAT 98
[2025-03-06] MEDS: Senna Tablet 1 TABLET PO (21:45)
[2025-03-07 04:00] VITALS: BP 93/53; PULSE 60; RESP 15; TEMP 36.8; O2SAT 97; O2SAT 98
--- NOTE | 2025-03-07 07:31 | PCM.PN.HOSP ---
Reason for Visit Reason for Visit: Adult failure to thrive Subjective Subjective No issues overnight. Pt concerned about her house and being able to get back home, paying for everything and getting the people out who are there now in order to get it cleaned up. Objective Data Objective Data Vital Signs: Vital Signs Temp Pulse Resp BP Pulse Ox O2 Del Method 98.3 F 60 15 93/53 L 97 Room Air 03/07/25 04:00 03/07/25 04:00 03/07/25 04:00 03/07/25 04:00 03/07/25 04:00 03/07/25 04:00 Oxygen Delivery Method Room Air Weight: 51.71 kg Body Mass Index (BMI) 21.5 Intake & Output: Intake and Output for Last 24 Hours 03/05/25 03/06/25 03/07/25 23:59 23:59 23:59 Output Total 400 / 400 100 / 100 Balance -400 / -400 -100 / -100 Lab / Micro Data 03/07/25 06:28 03/07/25 06:28 Physical Exam Const alert, oriented x3, no apparent distress, average body habitus and well nourished Constitutional Narrative: Pleasant, middle-aged white female with CP sitting up in a chair at the bedside asking for coke and pretzels General Appearance: cooperative and comfortable HEENT normocephalic and head/scalp atraumatic Psych affect normal Psych Narrative: Very pleasant, tearful intermittently today when talking about her home situation and desire to be as independent as possible Assessment & Plan Assessment/Plan (1) Adult failure to thrive: PLAN: Plan Debility/adult failure to thrive in the setting of cerebral palsy -PT/OT is following -Needs SNF at discharge -Has been accepted at [facility] but passr is holding up discharge at this time -Await approval from the state and then will plan for discharge Rash bilateral feet -Chronic in etiology is unclear -May need outpatient follow-up with dermatology if persistent Mild constipation -Continue senna scheduled -Continue as needed Bedbugs infestation -Isolation precautions were both Bipolar 1 disorder/PTSD -Continue home risperidone GERD -Continue home PPI DVT prophylaxis -Continue subcu Lovenox CODE STATUS Full code Disposition -Patient has been medically ready for discharge since 03/01/2025. Still awaiting Level of Determiniation by Dept of DD. Will discharge once approved. Charges/Coding Visit Charges Inpatient E&M: 28900 Subs Hosp L1
[2025-03-07 07:39] LABS: Hematocrit 39.2 % (37-47); Hemoglobin 12.7 g/dL (12.0-15.0); Mean Corp Hgb Conc 32.4 g/dL (32-36); Mean Corpuscular Hgb 30.8 pg (27.0-32.0); Mean Corpuscular Volume 94.9 fL (81-99); Mean Platelet Vol. 9.9 fl (6.2-12.0); Platelet Count 226 K/mm3 (150-450); RBC Distribution Width CV 12.5 % (11.6-14.6); Red Blood Count 4.13 M/mm3 (4.2-5.4); White Blood Count 5.5 K/mm3 (4.4-11.0)
[2025-03-07 08:12] LABS: Magnesium 2.3 mg/dL (1.5-2.2); Phosphorus 3.7 mg/dL (2.7-4.5)
[2025-03-07 08:13] LABS: ALB/GLOB Ratio 1.8 RATIO (0.9-2.4); AST(SGOT) 33 U/L (<=31); Alanine Aminotransfer ALT/SGPT 34 U/L (<=34); Albumin, Serum 3.4 g/dL (3.5-5.0); Alkaline Phosphatase 56 U/L (35-104); Anion Gap 11 (5-15); BUN 16 mg/dL (4-19); BUN/Creat Ratio 27.6 RATIO (10-20); Calcium,Total 8.4 mg/dL (7.6-11.0); Carbon Dioxide 21.1 mmol/L (21.0-32.0); Chloride 104 mmol/L (98-108); Creatinine, Serum 0.57 mg/dL (0.70-1.20); EST Glomerular Filtration Rate 115 (>60); Estimated Creatinine Clearance 95.04 ml/min (50-250); Globulin 1.9 g/dL (2.2-4.2); Glucose 86 mg/dL (70-99); Potassium 4.3 mmol/L (3.3-5.1); Protein, Total 5.3 g/dL (5.9-8.4); Sodium Level 136 mmol/L (133-145); Total Bilirubin < 0.15 mg/dL (0.00-1.30)
[2025-03-07 08:21] VITALS: BP 108/76; PULSE 60; RESP 18; TEMP 36.6; O2SAT 100
[2025-03-07] MEDS: Menthol/Lanolin/Calamine/Znox 113 GM Tube 1 APPLIC TOPICAL ×2 (10:29→20:25)
[2025-03-07] MEDS: Pantoprazole Sodium 40 MG Tablet PO (10:30)
[2025-03-07] MEDS: Senna Tablet 1 TABLET PO ×2 (10:30→20:26)
[2025-03-07 15:00] VITALS: BP 119/85; PULSE 93; RESP 18; TEMP 36.6; O2SAT 99
[2025-03-07] MEDS: RisperiDONE 0.5 MG Tablet PO (16:04)
[2025-03-07 20:24] VITALS: BP 134/95; PULSE 73; RESP 16; TEMP 37; O2SAT 100
[2025-03-08 02:59] VITALS: BP 96/60; PULSE 58; RESP 14; TEMP 37.1; O2SAT 98
[2025-03-08] MEDS: Enoxaparin 40 MG/0.4 ML Syringe SC (09:28)
[2025-03-08] MEDS: Menthol/Lanolin/Calamine/Znox 113 GM Tube 1 APPLIC TOPICAL ×2 (09:28→20:20)
[2025-03-08] MEDS: Senna Tablet 1 TABLET PO ×2 (09:29→20:25)
[2025-03-08] MEDS: Pantoprazole Sodium 40 MG Tablet PO (09:29)
[2025-03-08 10:00] VITALS: BP 100/59; PULSE 66; RESP 18; TEMP 36.8; O2SAT 99
--- NOTE | 2025-03-08 14:13 | CASEMGMT ---
Discharge Planning Updates sent to [facility] with request to submit for precert. Heather Cunningham DC Planning Asst.
--- NOTE | 2025-03-08 14:46 | PCM.PN.HOSP ---
Reason for Visit Reason for Visit: Adult failure to thrive Subjective Subjective No issues overnight. Still awaiting approval from the [facility] Department of DD to begin placement process. Objective Data Objective Data Vital Signs: Vital Signs Temp Pulse Resp BP Pulse Ox O2 Del Method 98.2 F 66 18 100/59 L 99 Room Air 03/08/25 10:00 03/08/25 10:00 03/08/25 10:00 03/08/25 10:00 03/08/25 10:00 03/08/25 10:00 Oxygen Delivery Method Room Air Weight: 51.71 kg Body Mass Index (BMI) 21.5 Intake & Output: Intake and Output for Last 24 Hours 03/06/25 03/07/25 03/08/25 23:59 23:59 23:59 Intake Total 750 / 750 Output Total 1300 / 1300 Balance -550 / -550 Lab / Micro Data 03/07/25 06:28 03/07/25 06:28 Physical Exam Const alert, oriented x3, no apparent distress, average body habitus and well nourished Constitutional Narrative: Pleasant, middle-aged white female with CP heading to bathroom General Appearance: cooperative and comfortable Neuro Neuro Narrative: Significant spasticity noted especially bilateral lower extremities Psych mental status grossly normal and affect normal Psych Narrative: Very pleasant, mood more stable today Assessment & Plan Assessment/Plan (1) Adult failure to thrive: PLAN: Plan Debility/adult failure to thrive in the setting of cerebral palsy -PT/OT is following -Needs SNF at discharge -Has been accepted at [facility] but passr is holding up discharge at this time--> pre-CERT started today -Await approval from the state and then will plan for discharge once pre-CERT is obtained Rash bilateral feet -Chronic in etiology is unclear -May need outpatient follow-up with dermatology if persistent Mild constipation -Continue senna scheduled -Continue as needed Bedbugs infestation -Isolation precautions were both Bipolar 1 disorder/PTSD -Continue home risperidone GERD -Continue home PPI DVT prophylaxis -Continue subcu Lovenox CODE STATUS Full code Disposition -Patient has been medically ready for discharge since 03/01/2025. Still awaiting Level of Determiniation by Dept of DD. Will discharge once approved. Pre-CERT started Charges/Coding Visit Charges Inpatient E&M: 07605 Subs Hosp L1
--- NOTE | 2025-03-08 16:43 | CASEMGMT ---
Social Work- SW met with pt to discuss discharge planning needs and offer support. Pt indicates that she would like to have mail forwarded to [facility]. SW and pt attempted to call and were not able to reach a person to provide information to. Pt would also like to cancel gas service and internet; SW will assist pt with calls tomorrow, as pt supper came and pt deferred making calls at this time. Plan: [facility]; pending level of care NELIDA Andrews
[2025-03-08] MEDS: RisperiDONE 0.5 MG Tablet PO (17:45)
[2025-03-08 20:38] VITALS: BP 99/50; PULSE 81; RESP 16; TEMP 36.4; O2SAT 95
[2025-03-08] MEDS: Acetaminophen 325 MG Tablet 650 MG PO (22:58)
[2025-03-09 06:48] VITALS: BP 104/68; PULSE 68; RESP 16; TEMP 36.6; O2SAT 99
[2025-03-09 08:00] VITALS: BP 113/74; PULSE 62; RESP 18; TEMP 36.5; O2SAT 99
[2025-03-09] MEDS: Enoxaparin 40 MG/0.4 ML Syringe SC (09:54)
[2025-03-09] MEDS: Menthol/Lanolin/Calamine/Znox 113 GM Tube 1 APPLIC TOPICAL ×2 (09:54→21:02)
[2025-03-09] MEDS: Pantoprazole Sodium 40 MG Tablet PO (09:54)
--- NOTE | 2025-03-09 11:08 | CASEMGMT ---
Per Preet at [employer] [facility], [place] the [place]. VM left for Oswaldo @ [facility]. Heather Cunningham DC Planning Asst.
--- NOTE | 2025-03-09 14:10 | CASEMGMT ---
Social Work- SW met with pt to make phone calls and discuss discharge planning needs. SW assisted pt in calling [employer], [employer], [employer], and [employer]. Pt cancelled services effective today. Pt mail will be held for 30 days. Confirmation number for mail hold is : [id number]. Pt reports that her chair is all plastic/leather and could be wiped down. Pt reports that Lela Hansen had previously offered to assist in meeting [facility] to get the chair from the home. Pt reports that her neighbor Dom Aguilera can access pt home if no one is in the home. Pt discussed options for return to home vs assisted living vs income-based apartment. SW offered support and education on options. Pt may be interested in having legal executive assistant involved in evicting people from her home if needed. SW remains available to follow. Plan: [facility]; pend level 2 NELIDA Andrews
[2025-03-09 14:20] VITALS: BP 121/71; PULSE 70; RESP 16; TEMP 36.6; O2SAT 99
--- NOTE | 2025-03-09 14:52 | CASEMGMT ---
[facility] has obtained auth to admit. Level II passr determination is still pending. Heather Cunningham DC Planning Asst.
--- NOTE | 2025-03-09 16:06 | PN.HOSP_ITS ---
Reason for Visit Reason for Visit: Adult failure to thrive Subjective Subjective Patient asking if we can take her IV out. Agreeable as she is not getting any IV medications. Patient stable. No issues. States she is feeling well. Objective Data Objective Data Vital Signs: Vital Signs Temp Pulse Resp BP Pulse Ox O2 Del Method 98 F 70 16 121/71 H 99 Room Air 03/09/25 14:20 03/09/25 14:20 03/09/25 14:20 03/09/25 14:20 03/09/25 14:20 03/09/25 14:20 Oxygen Delivery Method Room Air Weight: 51.71 kg Body Mass Index (BMI) 21.5 Intake & Output: Intake and Output for Last 24 Hours 03/07/25 03/08/25 03/09/25 23:59 23:59 23:59 Intake Total 750 / 750 500 / 500 Output Total 1300 / 1300 500 / 500 620 / 620 Balance -550 / -550 0 / 0 -620 / -620 Lab / Micro Data 03/07/25 06:28 03/07/25 06:28 Physical Exam Const alert, oriented x3, no apparent distress, average body habitus, healthy appearing and well nourished Constitutional Narrative: Pleasant, middle-aged white female with CP sitting up in a chair HEENT normocephalic and head/scalp atraumatic Skin Skin Narrative: Superficial erythematous bullae like rash over dorsum of feet noted, stable. Psych mental status grossly normal and affect normal Psych Narrative: Very pleasant Assessment & Plan Assessment/Plan (1) Adult failure to thrive: PLAN: Plan Debility/adult failure to thrive in the setting of cerebral palsy -PT/OT is following -Needs SNF at discharge -Has been accepted at [facility] but passr is holding up discharge at this time--> pre-CERT started today -Await approval from the state and then will plan for discharge once pre-CERT is obtained Rash bilateral feet -Chronic in etiology is unclear -May need outpatient follow-up with dermatology if persistent Mild constipation -Continue senna scheduled -Continue as needed Bedbugs infestation -Isolation precautions were both Bipolar 1 disorder/PTSD -Continue home risperidone GERD -Continue home PPI DVT prophylaxis -Continue subcu Lovenox CODE STATUS Full code Disposition -Patient has been medically ready for discharge since 03/01/2025. Still awaiting Level of Determiniation by Dept of DD. Will discharge once approved. Pre-CERT started and obtained today so we will be able to discharge once we hear from the state [facility]. Charges/Coding Visit Charges Inpatient E&M: 55751 Subs Hosp L1
--- NOTE | 2025-03-09 16:28 | CASEMGMT ---
Social Work SW checked the HENS and Level II determination for admission to SNF has not been returned by the [place] [employer]. Pt to remain in the hospital over the weekend in anticipation of determination early next week. Physician and pt notified. NELIDA Cote
[2025-03-09] MEDS: RisperiDONE 0.5 MG Tablet PO (16:42)
[2025-03-09] MEDS: Senna Tablet 1 TABLET PO (21:01)
[2025-03-09 21:13] VITALS: BP 122/66; PULSE 69; RESP 16; TEMP 36.6; O2SAT 97
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
[2025-03-10 09:04] VITALS: BP 112/61; PULSE 80; RESP 16; TEMP 36.4; O2SAT 96
[2025-03-10] MEDS: Menthol/Lanolin/Calamine/Znox 113 GM Tube 1 APPLIC TOPICAL (09:13)
[2025-03-10] MEDS: Enoxaparin 40 MG/0.4 ML Syringe SC (09:13)
[2025-03-10] MEDS: Pantoprazole Sodium 40 MG Tablet PO (09:14)
[2025-03-10] MEDS: Senna Tablet 1 TABLET PO (09:14)
--- NOTE | 2025-03-10 11:53 | CASEMGMT ---
Social Work SW met w/pt, as pt states that she is concerned someone is working on guardianship of her. SW reassured pt that this SW is unaware if anybody has started the process for guardianship. SW explained to pt the process, and that it is involved. SW let pt know that if someone was filing for guardianship, she would need to be notified and would have the right to appear in court. Pt states understanding. SW offered reassurance to pt, remains available for support to pt as needed. CHANELLE Strickland
[2025-03-10] MEDS: LORazepam 0.5 MG Tablet PO (14:57)
[2025-03-10 14:59] VITALS: BP 133/99; PULSE 78; RESP 18; O2SAT 97
[2025-03-10 16:16] VITALS: BP 103/56; PULSE 61; RESP 16; TEMP 36.5; O2SAT 98
[2025-03-10] MEDS: RisperiDONE 0.5 MG Tablet PO (17:03)
[2025-03-10] MEDS: Ipratropium/Albuterol Sulfate 3 ML AMPUL.NEB INHALATION (19:54)
[2025-03-10 19:55] VITALS: PULSE 85; RESP 24; O2SAT 95
[2025-03-10 20:48] VITALS: BP 115/60; PULSE 89; RESP 18; TEMP 36.6; O2SAT 96
[2025-03-11] VITALS (7 sets, daily range): BP systolic 91–110; BP diastolic 50–81; PULSE 66–84; RESP 16–18; TEMP 36.3–36.6; O2SAT 95–99
--- NOTE | 2025-03-11 06:38 | PN.HOSP_ITS ---
Reason for Visit Reason for Visit: Adult failure to thrive Subjective Subjective No issues overnight. No complaints. Patient is just anxious to get out of here. Still awaiting approval from the [facility] Department of developmental disabilities Objective Data Objective Data Vital Signs: Vital Signs Temp Pulse Resp BP Pulse Ox O2 Del Method 97.4 F L 66 16 91/50 L 95 Room Air 03/11/25 04:29 03/11/25 04:29 03/11/25 04:29 03/11/25 04:29 03/11/25 04:29 03/11/25 04:29 Oxygen Delivery Method Room Air Weight: 51.71 kg Body Mass Index (BMI) 21.5 Intake & Output: Intake and Output for Last 24 Hours 03/09/25 03/10/25 03/11/25 23:59 23:59 23:59 Intake Total 850 / 850 900 / 900 Output Total 1420 / 1420 200 / 200 Balance -1420 / -1420 850 / 850 700 / 700 Lab / Micro Data 03/07/25 06:28 03/07/25 06:28 Physical Exam Const alert, oriented x3, no apparent distress, average body habitus, healthy appearing and well nourished Constitutional Narrative: Pleasant, middle-aged white female with CP sitting up in a chair reclined at the bedside watching television and eating breakfast General Appearance: cooperative and comfortable Psych mental status grossly normal and affect normal Psych Narrative: Very pleasant, less sad today, eye contact is good and patient interacts appropriately Assessment & Plan Assessment/Plan (1) Adult failure to thrive: PLAN: Plan Debility/adult failure to thrive in the setting of cerebral palsy -PT/OT is following -Needs SNF at discharge -Has been accepted at [facility] but passr is holding up discharge at this time--> we have pre-CERT and currently waiting for the [facility] Rash bilateral feet -Chronic in etiology is unclear -May need outpatient follow-up with dermatology if persistent Mild constipation -Continue senna scheduled -Continue as needed Bedbugs infestation -Isolation precautions were both Bipolar 1 disorder/PTSD -Continue home risperidone GERD -Continue home PPI DVT prophylaxis -Continue subcu Lovenox CODE STATUS Full code Disposition -Patient has been medically ready for discharge since 03/01/2025. Still awaiting Level of Determiniation by Dept of DD. Will discharge once approved. Pre-CERT started and obtained today so we will be able to discharge once we hear from the state [facility]. Charges/Coding Visit Charges Inpatient E&M: 47151 Subs Hosp L1
[2025-03-11] MEDS: Enoxaparin 40 MG/0.4 ML Syringe SC (10:24)
[2025-03-11] MEDS: Pantoprazole Sodium 40 MG Tablet PO (10:24)
[2025-03-11] MEDS: Menthol/Lanolin/Calamine/Znox 113 GM Tube 1 APPLIC TOPICAL (10:25)
[2025-03-11] MEDS: RisperiDONE 0.5 MG Tablet PO (16:49)
[2025-03-12 03:00] VITALS: BP 95/60; PULSE 67; RESP 16; TEMP 36.7; O2SAT 97
[2025-03-12 03:14] VITALS: RESP 16; O2SAT 97
[2025-03-12 08:00] VITALS: BP 98/61; PULSE 58; RESP 14; TEMP 37.4; O2SAT 98
[2025-03-12] MEDS: Enoxaparin 40 MG/0.4 ML Syringe SC (08:11)
[2025-03-12] MEDS: Pantoprazole Sodium 40 MG Tablet PO (08:11)
[2025-03-12] MEDS: Senna Tablet 1 TABLET PO ×2 (08:11→21:38)
--- NOTE | 2025-03-12 11:20 | CASEMGMT ---
Social Work- JESSE received a call from Lela Hansen, [facility] requesting update on pt status. JESSE provided updates and collaborated on care needs. Lela verified he will call [facility] to arrange wheelchair transport. Lela reports the 4 dogs and 2 cats in the home are not pt and that she will stop at the home to verify that animals have been removed if the individuals have left the home. Lela confirms that the outside condition of the home was poor with months of trash on the front porch, but reports that pt did not allow her in the house the day of admittance. Lela shared that she feels pt is going to lose her home due to septic being condemned. JESSE will reach out to Lela at discharge as well as fax discharge instructions. JESSE remains available to follow. NELIDA Andrews
--- NOTE | 2025-03-12 11:49 | PCM.PN.HOSP ---
Subjective Subjective Doing well, no issues overnight Objective Data Objective Data Vital Signs: Vital Signs Temp Pulse Resp BP Pulse Ox O2 Del Method 99.3 F H 58 L 14 98/61 98 Room Air 03/12/25 08:00 03/12/25 08:00 03/12/25 08:00 03/12/25 08:00 03/12/25 08:00 03/12/25 08:00 Oxygen Delivery Method Room Air Weight: 114 lb Body Mass Index (BMI) 21.5 Intake & Output: Intake and Output for Last 24 Hours 03/11/25 03/12/25 03/13/25 03:59 03:59 03:59 Intake Total 1250 / 1250 1650 / 1650 200 / 200 Output Total 200 / 200 300 / 300 Balance 1050 / 1050 1350 / 1350 200 / 200 Lab / Micro Data 03/07/25 06:28 03/07/25 06:28 Physical Exam Narrative General: Alert, Oriented x3, Cooperative, No apparent distress HEENT: Atraumatic, PERRLA, EOMI, Normocephalic Oral: Moist Mucosa Neck: Supple, No JVD Lungs: Diminished, Normal air movement, No rhonchi, No wheeze, No rales Cardiovascular: Regular rate, Regular Rhythm, Normal S1, Normal S2, No murmurs Abdomen: Soft, Non Tender, Non-Distended, No Hepato-splenomegaly Extremities: No edema, Capillary Refill Less than 3 Seconds Skin: No rashes, No breakdown Musculoskeletal: No Tenderness to Palpation of Joints or Extremities Neurological: Cerebral palsy Psych/Mental Status: Normal Affect, Appropriate Assessment & Plan Assessment/Plan (1) Adult failure to thrive: PLAN: Plan 1. Adult failure to thrive in the setting of cerebral palsy with debility ? Pending transfer to [facility] ? Continue to wait for the [facility] for their determination on the appropriateness of transferring a patient with cerebral palsy to SNF 2. Bipolar 1/PTSD ? Continue with risperidone ? Stable 3. GERD ? Continue PPI ? Stable DVT: Lovenox Charges/Coding Visit Charges Inpatient E&M: 74800 Subs Hosp L2
[2025-03-12 14:00] VITALS: BP 125/74; PULSE 81; RESP 15; TEMP 37.3; O2SAT 100
--- NOTE | 2025-03-12 15:59 | CASEMGMT ---
Social Work- SW spoke with pt to provide updates and education on d/c process and timeline. Pt reports that she is starting to struggle with isolation and would like her tablet. SW collaborated with charge nurse who reports items cannot be removed from the bag. SW updated pt and discussed coping techniques that pt can utilize. SW remains available to follow. NELIDA Andrews
[2025-03-12] MEDS: RisperiDONE 0.5 MG Tablet PO (16:24)
[2025-03-12] MEDS: LORazepam 0.5 MG Tablet PO (16:36)
[2025-03-12] MEDS: Menthol/Lanolin/Calamine/Znox 113 GM Tube 1 APPLIC TOPICAL (21:39)
[2025-03-12 21:47] VITALS: BP 99/63; PULSE 72; RESP 16; TEMP 37; O2SAT 95
[2025-03-13 08:20] VITALS: BP 93/59; PULSE 63; RESP 16; TEMP 36.9; O2SAT 98
[2025-03-13] MEDS: Enoxaparin 40 MG/0.4 ML Syringe SC (08:36)
[2025-03-13] MEDS: Menthol/Lanolin/Calamine/Znox 113 GM Tube 1 APPLIC TOPICAL ×2 (08:37→21:38)
[2025-03-13] MEDS: Pantoprazole Sodium 40 MG Tablet PO (08:37)
--- NOTE | 2025-03-13 09:04 | WOUNDNOTE ---
In to reassess bilateral feet. most of the scabbed areas have now fallen off. no open areas noted. pt denies pain.
--- NOTE | 2025-03-13 10:43 | CASEMGMT ---
Addendum entered by Heather Cunningham 03/14/25 11:28: Per Preet, determination will be completed today. SW updated. Heather Cunningham DC Planning Asst. Original Note: left for Preet Duarte with [facility] to check on status of Level II review. Heather Cunningham DC Planning Asst.
[2025-03-13 14:40] VITALS: BP 104/75; PULSE 72; RESP 18; TEMP 37.4; O2SAT 100
--- NOTE | 2025-03-13 16:45 | PN.HOSP_ITS ---
Subjective Subjective No change Objective Data Objective Data Vital Signs: Vital Signs Temp Pulse Resp BP Pulse Ox O2 Del Method 99.3 F H 72 18 104/75 100 Room Air 03/13/25 14:40 03/13/25 14:40 03/13/25 14:40 03/13/25 14:40 03/13/25 14:40 03/13/25 14:40 Oxygen Delivery Method Room Air Weight: 114 lb Body Mass Index (BMI) 21.5 Intake & Output: Intake and Output for Last 24 Hours 03/12/25 03/13/25 03/14/25 03:59 03:59 03:59 Intake Total 1650 / 1650 200 / 200 Output Total 300 / 300 500 / 500 Balance 1350 / 1350 -300 / -300 Lab / Micro Data 03/07/25 06:28 03/07/25 06:28 Physical Exam Narrative General: Alert, Oriented x3, Cooperative, No apparent distress HEENT: Atraumatic, PERRLA, EOMI, Normocephalic Oral: Moist Mucosa Neck: Supple, No JVD Lungs: Diminished, Normal air movement, No rhonchi, No wheeze, No rales Cardiovascular: Regular rate, Regular Rhythm, Normal S1, Normal S2, No murmurs Abdomen: Soft, Non Tender, Non-Distended, No Hepato-splenomegaly Extremities: No edema, Capillary Refill Less than 3 Seconds Skin: No rashes, No breakdown Musculoskeletal: No Tenderness to Palpation of Joints or Extremities Neurological: Cerebral palsy Psych/Mental Status: Normal Affect, Appropriate Assessment & Plan Assessment/Plan (1) Adult failure to thrive: PLAN: Plan 1. Adult failure to thrive in the setting of cerebral palsy with debility ? Pending transfer to [facility] ? Continue to wait for the [facility] for their determination on the appropriateness of transferring a patient with cerebral palsy to SNF 2. Bipolar 1/PTSD ? Continue with risperidone ? Stable 3. GERD ? Continue PPI ? Stable DVT: Lovenox Charges/Coding Visit Charges Inpatient E&M: 70019 Subs Hosp L1
[2025-03-13] MEDS: RisperiDONE 0.5 MG Tablet PO (16:46)
[2025-03-13] MEDS: LORazepam 0.5 MG Tablet PO (16:49)
[2025-03-13 21:37] VITALS: BP 114/72; PULSE 77; RESP 18; TEMP 36.6; O2SAT 98
[2025-03-14 04:14] VITALS: BP 94/55; PULSE 56; RESP 16; TEMP 36.4; O2SAT 99
[2025-03-14 07:25] VITALS: BP 98/66; PULSE 60; RESP 16; TEMP 36.4; O2SAT 98
[2025-03-14] MEDS: Enoxaparin 40 MG/0.4 ML Syringe SC (08:18)
[2025-03-14] MEDS: Pantoprazole Sodium 40 MG Tablet PO (08:18)
[2025-03-14] MEDS: Menthol/Lanolin/Calamine/Znox 113 GM Tube 1 APPLIC TOPICAL ×2 (08:19→22:17)
--- NOTE | 2025-03-14 11:15 | PCM.PN.HOSP ---
Subjective Subjective No issues overnight, she is getting frustrated with having to sit here considering she has CP and needs physical therapy. I did discuss with her the reason for the delay. Objective Data Objective Data Vital Signs: Vital Signs Temp Pulse Resp BP Pulse Ox O2 Del Method 97.6 F L 60 16 98/66 98 Room Air 03/14/25 07:25 03/14/25 07:25 03/14/25 07:25 03/14/25 07:25 03/14/25 07:03/14/25 07:44 Oxygen Delivery Method Room Air Weight: 114 lb Body Mass Index (BMI) 21.5 Intake & Output: Intake and Output for Last 24 Hours 03/13/25 03/14/25 03/15/25 03:59 03:59 03:59 Intake Total 200 / 200 100 / 100 75 / 75 Output Total 500 / 500 350 / 350 Balance -300 / -300 100 / 100 -275 / -275 Lab / Micro Data 03/07/25 06:28 03/07/25 06:28 Physical Exam Narrative General: Alert, Oriented x3, Cooperative, No apparent distress HEENT: Atraumatic, PERRLA, EOMI, Normocephalic Oral: Moist Mucosa Neck: Supple, No JVD Lungs: Diminished, Normal air movement, No rhonchi, No wheeze, No rales Cardiovascular: Regular rate, Regular Rhythm, Normal S1, Normal S2, No murmurs Abdomen: Soft, Non Tender, Non-Distended, No Hepato-splenomegaly Extremities: No edema, Capillary Refill Less than 3 Seconds Skin: No rashes, No breakdown Musculoskeletal: No Tenderness to Palpation of Joints or Extremities Neurological: Cerebral palsy Psych/Mental Status: Normal Affect, Appropriate Assessment & Plan Assessment/Plan (1) Adult failure to thrive: PLAN: Plan 1. Adult failure to thrive in the setting of cerebral palsy with debility ? Pending transfer to [facility] ? Continue to wait for the [facility] for their determination on the appropriateness of transferring a patient with cerebral palsy to SNF 2. Bipolar 1/PTSD ? Continue with risperidone ? Stable 3. GERD ? Continue PPI ? Stable DVT: Lovenox Charges/Coding Visit Charges Inpatient E&M: 81430 Subs Hosp L1
[2025-03-14 14:04] VITALS: BP 105/67; PULSE 74; RESP 18; TEMP 36.3; O2SAT 97
--- NOTE | 2025-03-14 16:20 | CASEMGMT ---
Social Work- SW checked HENS and email for determination; no determination at this time. Pt is continuing to struggle emotionally with isolation and anxiety, therefore, was brought to the nurses station in a victoriano chair for socialization. SW remains available to follow for support and discharge planning. Plan: JESSE;pending level 2 determination NELIDA Andrews
--- NOTE | 2025-03-14 16:31 | NURSING ---
All documentation by nursing admin Leonor Kaur reviewed by nursing unit coordinator Sirisha Hernandes BSN, RN.
[2025-03-14] MEDS: LORazepam 0.5 MG Tablet PO (16:40)
[2025-03-14] MEDS: RisperiDONE 0.5 MG Tablet PO (16:40)
[2025-03-14 22:15] VITALS: BP 104/55; PULSE 71; RESP 16; TEMP 36.5; O2SAT 100
[2025-03-14] MEDS: Senna Tablet 1 TABLET PO (22:17)
[2025-03-15 05:31] VITALS: BP 95/54; PULSE 60; RESP 16; TEMP 36.9; O2SAT 97
[2025-03-15 08:00] VITALS: BP 93/55; PULSE 60; RESP 16; TEMP 36.6; O2SAT 99
--- NOTE | 2025-03-15 08:16 | CASEMGMT ---
Social Work- SW checked Diversion system for notification of determination; none available. SW emailed [facility] to verify status of determination. SW remains available to follow. Plan: [facility]; pend level II determination NELIDA Andrews
--- NOTE | 2025-03-15 10:04 | CASEMGMT ---
Addendum entered by Heather Cunningham 03/15/25 10:21: correction Precert is good until 03/19. Original Note: Precert is good until 03/21. SW updated. Heather Cunningham DC Planning Asst.
[2025-03-15] MEDS: Menthol/Lanolin/Calamine/Znox 113 GM Tube 1 APPLIC TOPICAL (10:29)
[2025-03-15] MEDS: Pantoprazole Sodium 40 MG Tablet PO (10:31)
[2025-03-15] MEDS: Enoxaparin 40 MG/0.4 ML Syringe SC (10:31)
--- NOTE | 2025-03-15 12:48 | TREXTCAR_ITS ---
Diet Diet Order/Speech Therapy: 02/28/25 17:08 Diet: Regular - General Food consistency:: Regular Liquid Consistency:: Regular/Thin Routine Orders/Code Status Routine Lab Work: CBC and BMP Code Status: Full Code DC O2, CPAP, BIPAP needs Home O2 Discharge instructions: No Wound(s) bilateral feet: Wound Type: Abrasion Therapies Physical Therapy: Eval and Treat Occupational Therapy: Eval and Treat Problem/Diagnosis (1) Adult failure to thrive: Status: Acute Code(s): R62.7 - Adult failure to thrive Plan 1. Adult failure to thrive in the setting of cerebral palsy with debility ? Pending transfer to [facility] ? Continue to wait for the [facility] for their determination on the appropriateness of transferring a patient with cerebral palsy to [facility] 2. Bipolar 1/PTSD ? Continue with risperidone ? Stable 3. GERD ? Continue PPI ? Stable DVT: Lovenox Allergies/Procedures Done in Hospital Allergies Coconut Allergy (Verified 02/28/25 13:29) Anaphylaxis coconut oil Allergy (Verified 02/28/25 13:29) Anaphylaxis latex Allergy (Verified 02/28/25 13:29) Rash cyclobenzaprine HCl (From Flexeril) Adverse Reaction (Verified 02/28/25 13:29) gets mean guaifenesin (From Robitussin) Adverse Reaction (Verified 02/28/25 13:29) Other Procedures: None Type of Care/Length of Stay Estimated LOS: Convalescent Care Less Than 30 days Type of Care Needed: Skilled Rehab Potential: Good Prognosis: Good Additional Orders/Day of Discharge Day of Discharge: 03/15/25 Dietary and Speech Recommendations Dietitian Recommendations/Changes: Continue Regular diet to optimize oral intakes. Please consult for changes in pt nutritional status if needed. Discharge Plan Admission Admit Date/Time: 02/28/25 15:48 Attending Provider: Jong Camara Primary Care Provider: Magnolia Gross Consulting Providers: Ne Grey; Omar Avila; Areli Lim Discharge Orders/Prescriptions Prescriptions: Continued albuterol sulfate 2.5 MG/3 ML solution for nebulization 2.5 mg inhalation Q4H PRN PRN (Reason: Sob &/Or Wheezing) albuterol sulfate 90 mcg/actuation HFA aerosol inhaler 2 puff inhalation Q4H PRN (Reason: shortness of breath or wheezing) omeprazole 40 mg capsule,delayed release(DR/EC) 40 mg PO DAILY Patient Comments: PT ONLY TAKES WHEN SHE NEEDS IT. risperidone 0.5 mg tablet 0.5 mg PO DAILY@1700 Referrals / Follow Up: Magnolia Gross MD [Primary Care Provider] - Disposition Disposition (needs filled in before D/C Order can be placed): [facility]
--- NOTE | 2025-03-15 13:27 | CASEMGMT ---
Social Work Precert has been obtained.? Level II determination has been made and received. Physician updated and pt is ready for discharge today.? Transportation arranged with [facility] for 14:30 pickup via cot.? SW met with pt and they are agreeable to discharge plan as stated above.? Bedside nurse notified of discharge time. JESSE faxed discharge information to Lela Hansen, Gigi Santos , and also left a voicemail for Lela. Disposition:[facility], skilled level of care under convalescent stay. NELIDA Andrews
[2025-03-15 14:00] VITALS: BP 105/63; PULSE 70; RESP 16; TEMP 36.9; O2SAT 100
--- NOTE | 2025-03-15 14:21 | PHA.DC.MR.R ---
Pharmacy [place] Med Reconciliation Pharmacy Service has performed discharge medication reconciliation for this patient upon transfer to SNF. The patient's discharge medication list was reviewed for discrepancies and discrepancies were resolved. Medications at Discharge Home Medications albuterol sulfate 2.5 mg/3 mL (0.083 %) solution for nebulization 2.5 mg inhalation Q4H PRN PRN Sob &/Or Wheezing 12/04/18 albuterol sulfate 90 mcg/actuation aerosol inhaler 2 puff inhalation Q4H PRN shortness of breath or wheezing 03/28/24 omeprazole 40 mg capsule,delayed release 40 mg PO DAILY 03/28/24 risperidone 0.5 mg tablet 0.5 mg PO DAILY@1700 03/28/24
--- NOTE | 2025-03-15 15:14 | DS.PCM_ITS ---
Providers Date of Admission: 02/28/25 Primary Care Physician: Dr. Magnolia Gross MD Consultations 02/28/25 17:06 Consult: Onc/Wound/electronic systems security assessment Routine Comment: Reason For Visit: FAILURE TO THRIVE, CEREBRAL PALSY Diagnosis Discharge Diagnosis (1) Adult failure to thrive: Status: Acute Code(s): R62.7 - Adult failure to thrive Medications at Discharge Home Medications albuterol sulfate 2.5 mg/3 mL (0.083 %) solution for nebulization 2.5 mg inhalation Q4H PRN PRN Sob &/Or Wheezing 12/04/18 albuterol sulfate 90 mcg/actuation aerosol inhaler 2 puff inhalation Q4H PRN shortness of breath or wheezing 03/28/24 omeprazole 40 mg capsule,delayed release 40 mg PO DAILY 03/28/24 risperidone 0.5 mg tablet 0.5 mg PO DAILY@1700 03/28/24 Hospital Course Operations None Procedures None Summary of Care Provided Minutes Spent on Discharge: 33 Hospital Course: Per HPI: REGI HERNANDEZ, is a 45 F with a past medical history as outlined was admitted from home after she was referred to the ED by case management manager. Patient has cerebral palsy as well as posttraumatic stress disorder and depression. A case management manager went to see patient and was found that her living environment was unsuitable as she was living with people in her home but they were not providing any care for her and she was not getting any assistance from them. Patient is unable to take care of herself also. She denied any fever or chills but did admit to bilateral lower extremity lesions which were chronic. Review of systems otherwise negative. Vitals in the ED were blood pressure 162/79, pulse rate of 98, respiratory rate of 12 and temperature of 98.2 Fahrenheit. She was saturating at 100% on room air. CBC showed hemoglobin of 13.2 with WBC of 3.6 and platelets of 205. Chemistry showed sodium of 143 with potassium of 3.7 and creatinine of 0.78. Anion gap was 8. Liver enzymes were normal. She has been admitted to be managed for debility and weakness with failure to thrive and bilateral wounds. Hospital Course: 1. Adult failure to thrive in the setting of cerebral palsy with debility and unsuitable living situation ? Pending transfer to SNF ? Continue to wait for the [facility] for their determination on the appropriateness of transferring a patient with cerebral palsy to SNF 03/15/2025: She did receive authorization to go to SNF today, will proceed with discharge. 2. Bipolar 1/PTSD ? Continue with risperidone ? Stable 3. GERD ? Continue PPI ? Stable Physical Exam Narrative General: Alert, Oriented x3, Cooperative, No apparent distress HEENT: Atraumatic, PERRLA, EOMI, Normocephalic Oral: Moist Mucosa Neck: Supple, No JVD Lungs: Diminished, Normal air movement, No rhonchi, No wheeze, No rales Cardiovascular: Regular rate, Regular Rhythm, Normal S1, Normal S2, No murmurs Abdomen: Soft, Non Tender, Non-Distended, No Hepato-splenomegaly Extremities: No edema, Capillary Refill Less than 3 Seconds Skin: No rashes, No breakdown Musculoskeletal: No Tenderness to Palpation of Joints or Extremities Neurological: Cerebral palsy Psych/Mental Status: Normal Affect, Appropriate Weight / BMI Weight Weight: 114 lb Body Mass Index (BMI) 21.5 ABG / Lab / Microbiology Data 03/07/25 06:28 03/07/25 06:28 D/C Instructions DC O2, CPAP, BIPAP Needs Home O2 Discharge instructions: No Meaningful Use Info Meaningful Use Meaningful Use Diagnoses (Choose all that apply): None applicable Ischemic Stroke Statin Dosing Therapy Reference: STATIN DOSE THERAPY REFERENCE: * Patients > 75 years receive moderate or high dose statin therapy. * Patients 75 years or YOUNGER should receive HIGH intensity statin dose unless contraindicated. You will be required to document reason for non-treatment if statin daily dose does not meet guidelines. HIGH DOSE STATIN THERAPY DAILY Atorvastatin > than or = to 40 mg Rosuvastatin > than or = to 20 mg Amlodipine + Atorvastatin > than or = to 2.5/40 mg Ezetimibe + Simvastatin 10/80 mg Simvastatin 80mg Discharge Plan Admission Admit Date/Time: 02/28/25 15:48 Attending Provider: Jong Camara Primary Care Provider: Magnolia Gross Consulting Providers: Ne Grey; Omar Avila; Areli Lim Discharge Orders/Prescriptions Prescriptions: Continued albuterol sulfate 2.5 MG/3 ML solution for nebulization 2.5 mg inhalation Q4H PRN PRN (Reason: Sob &/Or Wheezing) albuterol sulfate 90 mcg/actuation HFA aerosol inhaler 2 puff inhalation Q4H PRN (Reason: shortness of breath or wheezing) omeprazole 40 mg capsule,delayed release(DR/EC) 40 mg PO DAILY Patient Comments: PT ONLY TAKES WHEN SHE NEEDS IT. risperidone 0.5 mg tablet 0.5 mg PO DAILY@1700 Referrals / Follow Up: Magnolia Gross MD [Primary Care Provider] - Disposition Disposition (needs filled in before D/C Order can be placed): [facility] Charges/Coding Visit Charges Inpatient E&M: 36782 Disch Hosp >30min
== END 2025-03-15 14:25 | disposition skilled nursing facility (03) ==
LOC: ED 15:23 → MS3 15:49
PROVIDERS: Hospitalist; Internal Medicine; Admitting Provider Student in an Organized Health Care Education/Training Program; Emergency Provider Emergency Medicine; PCP Family Medicine; Visit Provider Family Medicine
DX: G80.9 Cerebral palsy, unspecified (principal); F31.9 Bipolar disorder, unspecified; R62.7 Adult failure to thrive; K21.9 Gastro-esophageal reflux disease without esophagitis; F43.10 Post-traumatic stress disorder, unspecified; R53.81 Other malaise; Z87.891 Personal history of nicotine dependence; Z75.1 Person awaiting admission to adequate facility elsewhere; R21 Rash and other nonspecific skin eruption; Z99.3 Dependence on wheelchair; N31.9 Neuromuscular dysfunction of bladder, unspecified; Z79.899 Other long term (current) drug therapy; Z68.20 Body mass index [BMI] 20.0-20.9, adult; Z59.19 Other inadequate housing; K59.09 Other constipation
CPT/HCPCS: 36415; 80048; 80053; 82962; 83735; 84100; 85025; 85027; 94640; 96360; 96361; 96372; 97162; 97166; 97530; 97535; 97802; 99221; 99285; G0378

== ENCOUNTER 2025-06-04 17:36 | Emergency (ER) | payer MEDICARE, MEDICAID, SELFPAY ==
[2025-06-04 17:41] VITALS: BP 114/78; PULSE 61; RESP 18; TEMP 36.8; O2SAT 97
--- NOTE | 2025-06-04 20:24 | ED.RN ---
Pt's family member states that pt would like to go home, lwbs.
--- NOTE | 2025-06-04 20:24 | ED.RN ---
Pt's family member states that pt would like to go home, lwbs.
== END 2025-06-04 20:10 | disposition left against medical advice (07) ==
LOC: ED 20:25
PROVIDERS: PCP Family Medicine
DX: Z53.21 Procedure and treatment not carried out due to patient leaving prior to being seen by health care provider (principal)
CPT/HCPCS: 99281